=== PATIENT | male | born 1970 | race American Indian/Alaskan Native ===

== ENCOUNTER 2018-12-22 23:29 | Inpatient (IN) | payer MEDICAID, MEDICARE, OTHER ==
--- NOTE | 2018-12-22 23:46 | Emergency Department Report ---
ED Shortness of Breath HPI - General Stated Complaint: CHEST PAIN Time Seen by Provider: 12/22/18 23:29 Source: patient, EMS Mode of arrival: Stretcher Limitations: No Limitations - History of Present Illness Initial Comments: Patient is a 48-year-old male that presents emergency room with complaints of chest pain, shortness of breath, palpitations. Patient states started about 3 hours ago. Patient states he feels like his heart is beating out of his chest. Patient states his symptoms are better with rest and worse with exertion. Patient states he is having dyspnea on exertion as well. Patient denies abdominal pain. Patient denies dizziness. Patient denies chest pain radiation. Patient states the chest pain is 10 out of 10. Patient denies fever and chills. Patient brought in by EMS. Report received from EMS. EMS found the patient to be in SVT and patient was given adenosine 6, 12 minimal response. MD Complaint: shortness of breath, chest pain -: Sudden Severity: severe Pain Scale: 10 Quality: throbbing, stabbing Improves With: rest Worsens With: lying flat, exertion Known History Of: congestive heart failure, diabetes Associated Symptoms: chest pain, orhopnia, palpitations Treatments Prior to Arrival: oxygen, other (adenosine 6, 12) - Related Data Home Oxygen Therapy: No Previous Rx's Medication Instructions Recorded Last Taken Type HYDROcodone/APAP 5-325 [[place] 1 each PO Q6HR PRN #10 tablet 07/05/18 Unknown Rx 5/325] amLODIPine [Norvasc] 5 mg PO QDAY #30 tablet 07/05/18 Unknown Rx Allergies Allergy/AdvReac Type Severity Reaction Status Date / Time aspirin Allergy Hives Verified 07/03/18 22:11 ibuprofen [From Motrin] Allergy Hives Verified 07/03/18 22:11 prochlorperazine Allergy Hives Verified 07/03/18 22:12 [From Compazine] ED Review of Systems ROS: Stated complaint: CHEST PAIN Other details as noted in HPI Constitutional: diaphoresis. denies: chills, fever Eyes: denies: eye pain, eye discharge, vision change ENT: denies: ear pain, throat pain Respiratory: shortness of breath, SOB with exertion, SOB at rest. denies: cough, wheezing Cardiovascular: chest pain, palpitations Endocrine: no symptoms reported Gastrointestinal: denies: abdominal pain, nausea, diarrhea Genitourinary: denies: urgency, dysuria Musculoskeletal: denies: back pain, joint swelling, arthralgia Skin: denies: rash, lesions Neurological: denies: headache, weakness, paresthesias Psychiatric: denies: anxiety, depression Hematological/Lymphatic: denies: easy bleeding, easy bruising ED Past Medical Hx - Past Medical History Previous Medical History?: Yes Hx Hypertension: Yes Hx Congestive Heart Failure: No Hx Diabetes: Yes Hx Headaches / Migraines: Yes Hx COPD: Yes Additional medical history: Sleep Apnea, Morbid Obesity, Chronic Back Pain - Surgical History Past Surgical History?: Yes Additional Surgical History: Sleep Apnea - Family History Family history: no significant - Social History Smoking Status: Current Every Day Smoker Substance Use Type: None - Medications Home Medications: Home Medications Medication Instructions Recorded Confirmed Last Taken Type HYDROcodone/APAP 5-325 [[place] 1 each PO Q6HR PRN #10 tablet 07/05/18 Unknown Rx 5/325] amLODIPine [Norvasc] 5 mg PO QDAY #30 tablet 07/05/18 Unknown Rx ED Physical Exam - General Limitations: No Limitations General appearance: alert, in distress - Head Head exam: Present: atraumatic, normocephalic - Eye Eye exam: Present: normal appearance - ENT ENT exam: Present: mucous membranes moist - Neck Neck exam: Present: normal inspection - Respiratory Respiratory exam: Present: normal lung sounds bilaterally, respiratory distress - Cardiovascular Cardiovascular Exam: Present: regular rate, normal rhythm, tachycardia. Absent: systolic murmur, diastolic murmur, rubs, gallop - GI/Abdominal GI/Abdominal exam: Present: soft, normal bowel sounds. Absent: distended, tenderness, guarding - Rectal Rectal exam: Present: deferred - Extremities Exam Extremities exam: Present: normal inspection - Back Exam Back exam: Present: normal inspection - Neurological Exam Neurological exam: Present: alert, oriented X3 - Psychiatric Psychiatric exam: Present: normal affect, normal mood - Skin Skin exam: Present: warm, dry, intact, normal color. Absent: rash ED Course Vital Signs 12/22/18 12/22/18 12/22/18 23:24 23:30 23:38 Temperature 98.2 F Pulse Rate 205 H 196 H 112 H Respiratory 33 H 19 20 Rate Blood Pressure 122/65 O2 Sat by Pulse 100 99 100 Oximetry 12/22/18 12/22/1819 23:45 23:57 00:01 Temperature Pulse Rate 126 H 104 H 91 H Respiratory 13 21 14 Rate Blood Pressure 144/74 112/57 89/68 O2 Sat by Pulse 100 100 100 Oximetry 12/23/18 12/23/18 12/23/18 00:15 00:30 00:40 Temperature Pulse Rate 96 H 94 H Respiratory 15 23 18 Rate Blood Pressure 101/74 111/65 O2 Sat by Pulse 99 100 Oximetry 12/23/18 12/23/18 12/23/18 00:45 01:00 01:15 Temperature Pulse Rate 99 H 105 H 111 H Respiratory 18 22 16 Rate Blood Pressure 119/60 104/56 109/66 O2 Sat by Pulse 99 100 100 Oximetry - Reevaluation(s) Reevaluation #1: Initial evaluation done. Patient noted to be in SVT and it appears to be A. fib RVR. Patient will be given Cardizem 25 mg. immediately improved to 150. EKG will be done. Patient states he is feeling less chest pressure and shortness of breath is improving 12/22/18 23:29 EKG reviewed and heart rate at 159. Patient's heart rate still elevated. Patient states he still having mild chest pain shortness of breath. 12/22/18 23:35 She given 5 mg of Lopressor. Heart rate improved more. Patient given another 25 mg of Cardizem heart rate at 98-105. After heart rate decreased patient states his symptoms also improved. 12/22/18 23:45 Heart rate is continues to improve. Patient's blood pressure has improved. Patient states his symptoms are better. 12/23/18 00:38 Patient's heart rate increased again. Patient is complaining of chest discomfort and palpitations. Patient will be started on a Cardizem drip 12/23/18 02:11 Discussed all results with patient. Patient will be admitted to the hospitalist service. Patient agrees to plan of care. 12/23/18 02:15 Heart rate improved with IV Cardizem push. he will be placed on drip once arrived from pharmacy. 12/23/18 02:30 Patient placed on Cardizem drip. Patient given Dilaudid for his pain. Shala ent's heart rate improved. Patient states his symptoms improved. 12/23/18 02:56 - Consultations Consultation #1: Hospitalist consultation for admission. Hospitalist to admit patient. Hospitalist to assume care patient. 12/23/18 02:14 ED Medical Decision Making - Lab Data Result diagrams: 12/23/18 01:22 12/23/18 01:22 - EKG Data -: EKG Interpreted by Me EKG shows normal: axis, intervals, QRS complexes, ST-T waves Rate: tachycardia - EKG Data Interpretation: other (initial EKG shows SVT.) - Radiology Data Radiology results: report reviewed, image reviewed interpreted by me: No acute findings on chest x-ray - Medical Decision Making Patient is a 48-year-old male presents emergency room with chest pains or palpitations. Patient in the SVT. Patient given adenosine 6, 12 by EMS. No effect or relief with adenosine. Patient given 2 doses of Cardizem and one dose of Lopressor and patient's heart rate and symptoms improved. Patient was admitted to the hospitalist service. Patient given morphine and aspirin for chest pain. Patient's heart rate went back up and patient placed on a Cardizem drip. - Differential Diagnosis SVT. A. fib RVR. Chest pain. Shortness of breath. Critical Care Time: Yes Critical care attestation.: If time is entered above; I have spent that time in minutes in the direct care of this critically ill patient, excluding procedure time. Critical Care Time: 65 minutes ED Disposition Clinical Impression: SVT (supraventricular tachycardia), Atrial fibrillation with RVR, SOB (shor tness of breath), ORDONEZ (dyspnea on exertion) Chest pain Qualifiers: Chest pain type: unspecified Qualified Code(s): R07.9 - Chest pain, unspecified Disposition: OP ADMIT IP TO THIS HOSP Is pt being admited?: Yes Does the pt Need Aspirin: No Condition: Critical Referrals: TARUN SOUSA MD [Primary Care Provider] - 3-5 Days Time of Disposition: 02:13
[2018-12-22] MEDS ORDERED: CARDIZEM ONE (23:48)
[2018-12-22] MEDS ORDERED: MORPHINE ONE (23:48)
[2018-12-23] MEDS ORDERED: CARDIZEM IV ONE (00:09)
[2018-12-23] MEDS ORDERED: NORMODYNE IV ONE (00:10)
[2018-12-23] MEDS ORDERED: MORPHINE IV ONE (00:11)
--- NOTE | 2018-12-23 01:36 | XRay Report ---
PROCEDURE: XR CHEST 1V AP TECHNIQUE: Chest radiograph single view. HISTORY: sob COMPARISONS: None . FINDINGS: Heart: Heart is enlarged. Mediastinum/Vessels: Normal. Lungs/Pleural space: There is suboptimal inspiration. There are no infiltrates, effusions or pneumot horaces.. Bony thorax: No acute osseous abnormality. Life support devices: None. IMPRESSION: Heart is enlarged. There is suboptimal inspiration. There are no infiltrates, effusions or pneumothoraces... This document is electronically signed by Andrea Haley MD., Dec 23 2018 01:34:28 AM ET
[2018-12-23 02:10] LABS: Alanine Aminotransferase 58 units/L (7-56); Albumin 3.8 g/dL (3.9-5); BUN/Creatinine Ratio 11; Blood Urea Nitrogen 16 mg/dL (9-20); Calcium 9.8 mg/dL (8.4-10.2); Hemolysis Index 12
[2018-12-23] MEDS ORDERED: TYLENOL PO PRN ×2 (02:22→02:51)
[2018-12-23] MEDS ORDERED: SODIUM CHLORIDE FLUSH SYRINGE 10 ML IV PRN (02:22)
[2018-12-23] MEDS ORDERED: ZOFRAN IV PRN ×2 (02:22→02:51)
--- NOTE | 2018-12-23 02:26 | History and Physical Report ---
<NAIMA ABBOTT - Last Filed: 12/23/18 03:05> History of Present Illness Date of examination: 12/23/18 Date of admission: 12/23/2018 Chief complaint: Shortness of breath, chest pain History of present illness: Patient is a 48-year-old male with PMHx of CHF, HTN, obesity, former smoker who presents to the ER with complaints of chest pain, shortness of breath, palpitations just prior to coming to the ER. Patient states that 2 days ago he woke up in the middle of the night unable to catch his breath, he was sweating, any activity causes severe fatigue and shortness of breath. Patient states that the same symptoms happened today, he couldn't walk from his bedroom to the bathroom without significant shortness of breath, diaphoresis and palpitation, the symptoms was associated with chest pain and general discomfort, his sister saranya alled EMS and he was taken to the ER for evaluation. Patient denies any acute illness, denies LOC, denies nausea, denied dizziness, denies headache. In the ER patients was found to be in SVT with a heart rate greater than 200, he was treated with Cardizem with some improvement in the heart rate, and admitted to ICU for further cardiac monitoring. Past History Past Medical History: heart failure, hypertension, other (obesity) Social history: smoking (used to smoke 2 pack a day, now reduced to 2 cigarettes a day) Family history: CAD, hypertension Medications and Allergies Allergies Allergy/AdvReac Type Severity Reaction Status Date / Time aspirin Allergy Hives Verified 07/03/18 22:11 ibuprofen [From Motrin] Allergy Hives Verified 07/03/18 22:11 prochlorperazine Allergy Hives Verified 07/03/18 22:12 [From Compazine] Home Medications Medication Instructions Recorded Confirmed Last Taken Type HYDROcodone/APAP 5-325 [[place] 1 each PO Q6HR PRN #10 tablet 07/05/18 Unknown Rx 5/325] amLODIPine [Norvasc] 5 mg PO QDAY #30 tablet 07/05/18 Unknown Rx Active Meds: Active Medications Diltiazem HCl (Cardizem/D5w 100mg/100ml) 100 mg in 100 mls @ 5 mls/hr IV TITR MEGAN; Protocol Review of Systems Cardiovascular: chest pain, palpitations, shortness of breath Respiratory: shortness of breath, dyspnea on exertion Exam - Constitutional Vitals: Temp Pulse Resp BP Pulse Ox 98.2 F 111 H 16 109/66 100 12/22/18 23:38 12/23/18 01:15 12/23/18 01:15 12/23/18 01:15 12/23/18 01:15 General appearance: Present: no acute distress - EENT Eyes: Present: EOM intact - Neck Neck: Present: normal ROM - Respiratory Respiratory effort: labored Respiratory: bilateral: diminished - Cardiovascular Rhythm: regular Heart Sounds: Present: S1 & S2 - Extremities Extremities: no ischemia, No edema - Abdominal General gastrointestinal: Present: non-tender, non-distended Male genitourinary: Present: deferred - Rectal Rectal Exam: deferred - Integumentary Integumentary: Present: warm, dry - Musculoskeletal Musculoskeletal: generalized weakness - Psychiatric Psychiatric: cooperative - Neurologic Neurologic: moves all extremities Results - Labs CBC & Chem 7: 12/23/18 01:22 12/23/18 01:22 Labs: Laboratory Last Values Sodium 141 mmol/L (137-145) 12/23/18 01:22 Potassium 4.4 mmol/L (3.6-5.0) 12/23/18 01:22 Chloride 102.6 mmol/L (98-107) 12/23/18 01:22 Carbon Dioxide 24 mmol/L (22-30) 12/23/18 01:22 19 mmol/L 12/23/18 01:22 BUN 16 mg/dL (9-20) 12/23/18 01:22 1.4 mg/dL (0.8-1.5) 12/23/18 01:22 Estimated GFR > 60 ml/min 12/23/18 01:22 11 % 12/23/18 01:22 Glucose 109 mg/dL (75-100) H 12/23/18 01:22 Calcium 9.8 mg/dL (8.4-10.2) 12/23/18 01:22 0.20 mg/dL (0.1-1.2) 12/23/18 01:22 AST 37 units/L (5-40) 12/23/18 01:22 ALT 58 units/L (7-56) H 12/23/18 01:22 87 units/L (35-129) 12/23/18 01:22 < 0.010 ng/mL (0.00-0.029) 12/23/18 01:22 7.4 g/dL (6.3-8.2) 12/23/18 01:22 3.8 g/dL (3.9-5) L 12/23/18 01:22 1.1 % 12/23/18 01:22 Assessment and Plan Assessment and plan: 1. New onset A. fib with RVR 2. Chest pain (due to above) 3. History of CHF 4. Accelerated Hypotension 5. Obesity Plan Admit to ICU for cardiac monitoring Consult cardiology for evaluation Continue Cardizem drip Monitor vital signs Continue home meds Plan of care d/w pt, voiced understading Patient's condition and plan of care discussed with Dr. Leonard Advance Directives: Yes VTE prophylaxis?: Chemical Plan of care discussed with patient/family: Yes <YANET LEONARD - Last Filed: 12/23/18 04:06> Medications and Allergies Active Meds: Active Medications Acetaminophen (Tylenol) 650 mg PO Q4H PRN PRN Reason: Pain MILD(1-3)/Fever >100.5/NICOLE Acetaminophen/Hydrocodone Bitart ([place] 5/325) 1 each PO Q6HR PRN PRN Reason: Pain Amlodipine Besylate (Norvasc) 5 mg PO QDAY MEGAN Enoxaparin Sodium (Lovenox) 110 mg 1 mg/kg (110 mg) SUB-Q Q12H MEGAN Diltiazem HCl (Cardizem/D5w 100mg/100ml) 100 mg in 100 mls @ 5 mls/hr IV TITR MEGAN; Protocol Last Admin: 12/23/18 03:15 Dose: 5 mg/hr, 5 mls/hr Documented by: Methylprednisolone Sodium Succinate (Solu-Medrol) 60 mg IV Q8HR MEGAN Ondansetron HCl (Zofran) 4 mg IV Q8H PRN PRN Reason: Nausea And Vomiting Sodium Chloride (Sodium Chloride Flush Syringe 10 Ml) 10 ml IV BID MEGAN Sodium Chloride (Sodium Chloride Flush Syringe 10 Ml) 10 ml IV PRN PRN PRN Reason: LINE FLUSH Exam - Constitutional Vitals: Temp Pulse Resp BP Pulse Ox 98.2 F 111 H 16 109/66 100 12/22/18 23:38 12/23/18 01:15 12/23/18 01:15 12/23/18 01:15 12/23/18 01:15 Results - Labs CBC & Chem 7: 12/23/18 01:22 12/23/18 01:22 Labs: Laboratory Last Values WBC 7.0 K/mm3 (4.5-11.0) 12/23/18 01:22 RBC 5.62 M/mm3 (3.65-5.03) H 12/23/18 01:22 Hgb 15.7 gm/dl (11.8-15.2) H 12/23/18 01:22 Hct 47.4 % (35.5-45.6) H 12/23/18 01:22 MCV 84 fl (84-94) 12/23/18 01:22 MCH 28 pg (28-32) 12/23/18 01:22 MCHC 33 % (32-34) 12/23/18 01:22 RDW 15.6 % (13.2-15.2) H 12/23/18 01:22 Plt Count 215 K/mm3 (140-440) 12/23/18 01:22 Sodium 141 mmol/L (137-145) 12/23/18 01:22 Potassium 4.4 mmol/L (3.6-5.0) 12/23/18 01:22 Chloride 102.6 mmol/L (98-107) 12/23/18 01:22 Carbon Dioxide 24 mmol/L (22-30) 12/23/18 01:22 19 mmol/L 12/23/18 01:22 BUN 16 mg/dL (9-20) 12/23/18 01:22 1.4 mg/dL (0.8-1.5) 12/23/18 01:22 Estimated GFR > 60 ml/min 12/23/18 01:22 11 % 12/23/18 01:22 Glucose 109 mg/dL (75-100) H 12/23/18 01:22 Calcium 9.8 mg/dL (8.4-10.2) 12/23/18 01:22 0.20 mg/dL (0.1-1.2) 12/23/18 01:22 AST 37 units/L (5-40) 12/23/18 01:22 ALT 58 units/L (7-56) H 12/23/18 01:22 87 units/L (35-129) 12/23/18 01:22 < 0.010 ng/mL (0.00-0.029) 12/23/18 01:22 7.4 g/dL (6.3-8.2) 12/23/18 01:22 3.8 g/dL (3.9-5) L 12/23/18:22 1.1 % 12/23/18:22 Assessment and Plan Assessment and plan: 48-year-old man with a history of CHF, COPD, sleep apnea, CVA, seizure, diabetes,tobacco abuse, chronic pain,morbid obesity is brought to the emergency room with complaints of shortness of breath which she is been experiencing for 2 days, associated with dyspnea and exertion, diaphoresis and chest pain. His pain is in the left substernal area which she describes a pressure-like sensation, constant, radiating to the left shoulder and his upper extremity felt weak. He had a stress test a year ago which was negative. He denies having palpitation, he was found to be in A. fib with RVR, started on a Cardizem drip. Denies recent travel .His physical exam is significant for wheezing. Continue plan as discussed above, in addition check cardiac enzymes, d-dimer, TSH, echo and start full dose Lovenox, Solu-Medrol, nebulizer treatments. Consult critic al care . Hold norvasc. Fingersticks initiate insulin sliding scale
[2018-12-23] MEDS ORDERED: CARDIZEM ONE (02:29)
[2018-12-23] MEDS ORDERED: DILAUDID IV ONE (02:31)
[2018-12-23 02:44] LABS: Hematocrit 47.4 % (35.5-45.6); Hemoglobin 15.7 gm/dl (11.8-15.2); Mean Corpuscular HGB Conc 33 % (32-34); Mean Corpuscular Volume 84 fl (84-94); Platelet Count 215 K/mm3 (140-440); Red Blood Count 5.62 M/mm3 (3.65-5.03); Red Cell Distribution Width 15.6 % (13.2-15.2)
[2018-12-23] MEDS ORDERED: CARDIZEM/D5W 100MG/100ML 100 MG/100 ML BAG IV SCH (03:00)
[2018-12-23] MEDS ORDERED: NORCO 5/325 PO PRN (03:42)
[2018-12-23] MEDS ORDERED: LOVENOX SUB-Q SCH (04:00)
[2018-12-23] MEDS ORDERED: SOLU-Medrol IV SCH ×2 (04:00→06:00)
[2018-12-23] MEDS ORDERED: D50W (25GM) Syringe IV PRN (04:01)
[2018-12-23 05:13] LABS: Creatine Kinase MB 1.6 ng/mL (0.0-4.0)
[2018-12-23] MEDS ORDERED: NORCO 5/325 ONE (05:16)
[2018-12-23] MEDS: LOVENOX SUB-Q SCH ×4 (07:28→18:29)
[2018-12-23] MEDS: HumaLOG SUB-Q SCH ×4 (07:30→21:50)
[2018-12-23] MEDS ORDERED: DILAUDID IM PRN (08:40)
--- NOTE | 2018-12-23 08:49 | Consultation ---
History of Present Illness Consult date: 12/23/18 Consult reason: atrial fibrillation History of present illness: 48 year old male admitted with 2 day history of shortness of breath. ECG on admission showing afib with RVR. Patient denies prior history of cardiovascular disease. He is known to have DM, HTN, HLP, COPD and DOM. He is a smoker, trying to quit. Past History Past Medical History: heart failure, hypertension, other (obesity) Past Surgical History: Other (hemorrhoidectomy) Social history: smoking (used to smoke 2 pack a day, now reduced to 2 cigarettes a day) Family history: CAD, hypertension Medications and Allergies Allergies Allergy/AdvReac Type Severity Reaction Status Date / Time aspirin Allergy Hives Verified 07/03/18 22:11 ibuprofen [From Motrin] Allergy Hives Verified 07/03/18 22:11 prochlorperazine Allergy Hives Verified 07/03/18 22:12 [From Compazine] Home Medications Medication Instructions Recorded Confirmed Last Taken Type HYDROcodone/APAP 5-325 [[place] 1 each PO Q6HR PRN #10 tablet 07/05/18 Unknown Rx 5/325] amLODIPine [Norvasc] 5 mg PO QDAY #30 tablet 07/05/18 Unknown Rx Active Meds: Active Medications Acetaminophen (Tylenol) 650 mg PO Q4H PRN PRN Reason: Pain MILD(1-3)/Fever >100.5/NICOLE Dextrose (D50w (25gm) Syringe) 50 ml IV PRN PRN PRN Reason: Hypoglycemia Enoxaparin Sodium (Lovenox) 80 mg SUB-Q Q12H MEGAN Last Admin: 12/23/18 07:28 Dose: 80 mg Documented by: Enoxaparin Sodium (Lovenox) 30 mg SUB-Q Q12H MEGAN Last Admin: 12/23/18 07:28 Dose: 30 mg Documented by: Hydromorphone HCl (Dilaudid) 1 mg IM Q4H PRN PRN Reason: Pain , Severe (7-10) Amiodarone HCl 150 mg/ (Dextrose) 100 mls @ 600 mls/hr IV ONCE ONE Stop: 12/23/18 08:47 Amiodarone HCl 900 mg/ (Dextrose) 500 mls @ 33.333 mls/hr IV DIRECT MEGAN; Protocol Insulin Human Lispro (Humalog) 0 unit SUB-Q ACHS MEGAN; Protocol Methylprednisolone Sodium Succinate (Solu-Medrol) 60 mg IV Q8HR MEGAN Last Admin: 12/23/18 07:28 Dose: 60 mg Documented by: Metoprolol Tartrate (Lopressor) 50 mg PO Q8H MEGAN Ondansetron HCl (Zofran) 4 mg IV Q8H PRN PRN Reason: Nausea And Vomiting Sodium Chloride (Sodium Chloride Flush Syringe 10 Ml) 10 ml IV BID MEGAN Sodium Chloride (Sodium Chloride Flush Syringe 10 Ml) 10 ml IV PRN PRN PRN Reason: LINE FLUSH Review of Systems All systems: negative Physical Examination Vital Signs Pulse Resp Pulse Ox 205 H 33 H 100 12/22/18 23:24 12/22/18 23:24 12/22/18 23:24 General appearance: other (obese) Neck: Positive: neck supple Cardiac: Positive: irregularly irregular Lungs: Positive: Decreased Breath Sounds Abdomen: Positive: Soft Extremities: Absent: edema Results 12/23/18 01:22 12/23/18 01:22 Cardiac Enzymes 12/23/18 12/23/18 Range/Units 01:22 04:15 AST 37 (5-40) units/L CK-MB (CK-2) 1.6 (0.0-4.0) ng/mL CBC 12/23/18 Range/Units 01:22 WBC 7.0 (4.5-11.0) K/mm3 RBC 5.62 H (3.65-5.03) M/mm3 Hgb 15.7 H (11.8-15.2) gm/dl Hct 47.4 H (35.5-45.6) % Plt Count 215 (140-440) K/mm3 Comprehensive Metabolic Panel 12/23/18 Range/Units 01:22 Sodium 141 (137-145) mmol/L Potassium 4.4 (3.6-5.0) mmol/L Chloride 102.6 (98-107) mmol/L Carbon Dioxide 24 (22-30) mmol/L BUN 16 (9-20) mg/dL Creatinine 1.4 (0.8-1.5) mg/dL Glucose 109 H (75-100) mg/dL Calcium 9.8 (8.4-10.2) mg/dL AST 37 (5-40) units/L ALT 58 H (7-56) units/L Alkaline Phosphatase 87 (35-129) units/L Total Protein 7.4 (6.3-8.2) g/dL Albumin 3.8 L (3.9-5) g/dL - EKG Interpretation EKG shows: atrial fibrillation EKG interpretations - Telemetry EKG Rhythm: Atrial Fibrillation Assessment and Plan Shortness of breath Cardiomegaly on CXR Negative troponin MPI 06/2018 showing no ischemia Atrial fibrillation with RVR Morbid obesity Obstructive sleep apnea Type II DM Systemic Hypertension Hyperlipidemia COPD Nicotine dependence Recommendations: Continue SC lovenox bid Change IV diltiazem to IV amiodarone with po metoprolol for rate/rhythm control Echocardiogram to evaluate LVEF and cardiomegaly Encourage use of CPAP at bedtime
[2018-12-23] MEDS: LOPRESSOR PO SCH ×3 (09:23→21:20)
[2018-12-23] MEDS ORDERED: CORDARONE 150 MG in D5W 97 ML IV ONE (09:30)
[2018-12-23] MEDS ORDERED: NORVASC PO SCH (10:00)
[2018-12-23] MEDS ORDERED: OxyCONTIN PO ONE (10:00)
--- NOTE | 2018-12-23 11:06 | Consultation ---
History of Present Illness Consult date: 12/23/18 Requesting physician: YANET CONN Reason for consult: other (New onset Atrial Fibrillation with RVR; Acute hypoxemic Respiratory Failure) History of present illness: PCCM CONSULT NOTE (Full dictation # [id number]) Please see dictated notes for full details Past History Past Medical History: heart failure, hypertension, other (obesity) Social history: smoking (used to smoke 2 pack a day, now reduced to 2 cigarettes a day) Family history: CAD, hypertension Medications and Allergies Allergies Allergy/AdvReac Type Severity Reaction Status Date / Time aspirin Allergy Hives Verified 07/03/18 22:11 ibuprofen [From Motrin] Allergy Hives Verified 07/03/18 22:11 prochlorperazine Allergy Hives Verified 07/03/18 22:12 [From Compazine] Home Medications Medication Instructions Recorded Confirmed Last Taken Type HYDROcodone/APAP 5-325 [[place] 1 each PO Q6HR PRN #10 tablet 07/05/18 Unknown Rx 5/325] amLODIPine [Norvasc] 5 mg PO QDAY #30 tablet 07/05/18 Unknown Rx Active Meds: Active Medications Acetaminophen (Tylenol) 650 mg PO Q4H PRN PRN Reason: Pain MILD(1-3)/Fever >100.5/NICOLE Dextrose (D50w (25gm) Syringe) 50 ml IV PRN PRN PRN Reason: Hypoglycemia Enoxaparin Sodium (Lovenox) 80 mg SUB-Q Q12H MEGAN Last Admin: 12/23/18 07:28 Dose: 80 mg Documented by: Enoxaparin Sodium (Lovenox) 30 mg SUB-Q Q12H MEGAN Last Admin: 12/23/18 07:28 Dose: 30 mg Documented by: Hydromorphone HCl (Dilaudid) 1 mg IM Q4H PRN PRN Reason: Pain , Severe (7-10) Last Admin: 12/23/18 10:03 Dose: 1 mg Documented by: Amiodarone HCl 900 mg/ (Dextrose) 500 mls @ 33.333 mls/hr IV DIRECT MEGAN; Protocol Insulin Human Lispro (Humalog) 0 unit SUB-Q ACHS MEGAN; Protocol Methylprednisolone Sodium Succinate (Solu-Medrol) 60 mg IV Q8HR MEGAN Last Admin: 12/23/18 07:28 Dose: 60 mg Documented by: Metoprolol Tartrate (Lopressor) 50 mg PO Q8HR [facility] Last Admin: 12/23/18 09:23 Dose: 50 mg Documented by: Morphine Sulfate (Morphine) 2 mg IV Q4H PRN PRN Reason: Pain, Moderate (4-6) Ondansetron HCl (Zofran) 4 mg IV Q8H PRN PRN Reason: Nausea And Vomiting Sodium Chloride (Sodium Chloride Flush Syringe 10 Ml) 10 ml IV BID [facility] Sodium Chloride (Sodium Chloride Flush Syringe 10 Ml) 10 ml IV PRN PRN PRN Reason: LINE FLUSH Physical Examination Vital signs: Vital Signs Pulse Resp Pulse Ox 205 H 33 H 100 12/22/18 23:24 12/22/18 23:24 12/22/18 23:24 Results - Laboratory Findings CBC and BMP: 12/23/18 01:22 12/23/18 01:22 PT/INR, D-dimer 271.74 ng/mlDDU (0-234) H 12/23/18 04:15 Abnormal lab findings: Abnormal Labs 12/23/18 12/23/18 12/23/18 01:22 01:22 04:15 RBC 5.62 H Hgb 15.7 H Hct 47.4 H RDW 15.6 H D-Dimer 271.74 H Glucose 109 H ALT 58 H Total Creatine Kinase Albumin 3.8 L 12/23/18 04:15 RBC Hgb Hct RDW D-Dimer Glucose ALT Total Creatine Kinase 576 H Albumin
[2018-12-23] MEDS: CORDARONE 900 MG in D5W 482 ML IV SCH (11:20)
[2018-12-23 11:21] LABS: Creatine Kinase MB 1.6 ng/mL (0.0-4.0)
[2018-12-23] MEDS ORDERED: PROVENTIL IH PRN (12:27)
[2018-12-23] MEDS: DUONEB *Not for PRN Use IH SCH ×2 (16:43→21:57)
--- NOTE | 2018-12-23 16:49 | Vascular Lab Report ---
PROCEDURE: VL VENOUS DUPLEX LE BILAT TECHNIQUE: Duplex Doppler ultrasound examination of the venous system of the right leg and left leg HISTORY: leg pain and SOB COMPARISONS: None FINDINGS: RIGHT LEG: Normal compressibility, vascular patency, and augmentation are present diffusely throughout the visua lized portion of the deep veins. No abnormal intraluminal echoes are visualized to suggest deep vein thrombus. IMPRESSION: No ultrasound evidence of DVT in the right leg LEFT LEG: Normal compressibility, vascular patency, and augmentation are present diffusely throughout the visua lized portion of the deep veins. No abnormal intraluminal echoes are visualized to suggest deep vein thrombus. IMPRESSION: No ultrasound evidence of DVT in the left leg This document is electronically signed by Jean-Paul Schwab MD., Dec 23 2018 04:47:41 PM ET
--- NOTE | 2018-12-23 17:59 | Event Note ---
Date: 12/23/18 Pateint seen and examined, continue care as currently outlined. will check v/q scan to rule out PE, although management may not necessary change since patient is already on full dose ANTICOAGULATION
[2018-12-23] MEDS: MORPHINE IV PRN ×2 (18:48→21:34)
[2018-12-23] MEDS: SODIUM CHLORIDE FLUSH SYRINGE 10 ML IV SCH (21:28)
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
[2018-12-24] MEDS: MORPHINE IV PRN ×6 (02:40→23:43)
[2018-12-24] MEDS: LOPRESSOR PO SCH (06:28)
[2018-12-24] MEDS: LOVENOX SUB-Q SCH ×2 (06:29)
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
[2018-12-24] MEDS: SODIUM CHLORIDE FLUSH SYRINGE 10 ML IV SCH ×3 (08:32→21:27)
[2018-12-24] MEDS: HumaLOG SUB-Q SCH ×4 (08:34→21:27)
[2018-12-24] MEDS: DUONEB *Not for PRN Use IH SCH ×3 (08:48→19:41)
--- NOTE | 2018-12-24 08:56 | Progress Note ---
Assessment and Plan - Patient Problems (1) Atrial fibrillation with RVR Current Visit: Yes Status: Acute Plan to address problem: Atrial fibrillation rate is much better controlled. Will continue AV malcom blocking agents. He will ultimately need transition from subcutaneous Lovenox to oral Eliquis prior to discharge. Subjective Date of service: 12/24/18 Interval history: Patient complains of shortness of breath attributed to his severe sleep apnea. On air sampling and monitoring, he is in atrial fibrillation but now with a well- controlled ventricular rate. Objective Vital Signs Temp Pulse Pulse Pulse Resp Resp Resp 12/24/18 08:49 103 H 20 12/24/18 08:21 113 H 17 12/24/18 08:11 104 H 26 H 12/24/18 08:01 110 H 21 12/24/18 08:00 97.7 F 12/24/18 07:51 100 H 20 12/24/18 07:41 129 H 24 12/24/18 07:31 133 H 24 12/24/18 07:21 135 H 24 12/24/18 07:11 123 H 21 12/24/18 07:01 140 H 25 H 12/24/18 06:51 162 H 17 12/24/18 06:41 29 H 12/24/18 06:31 122 H 21 12/24/18 06:28 120 H 12/24/18 06:21 140 H 22 12/24/18 06:11 133 H 20 12/24/18 06:01 130 H 21 12/24/18 05:51 127 H 15 12/24/18 05:41 140 H 18 12/24/18 05:31 126 H 21 12/24/18 05:21 144 H 20 12/24/18 05:11 130 H 22 12/24/18 05:01 139 H 24 12/24/18 04:31 136 H 21 12/24/18 04:01 137 H 25 H 12/24/18 03:31 135 H 24 12/24/18 03:13 97.9 F 12/24/18 03:01 126 H 20 12/24/18 02:51 131 H 14 12/24/18 02:46 112 H 17 12/24/18 02:41 153 H 23 12/24/18 02:31 125 H 21 12/24/18 02:21 138 H 22 05/18/19 02:11 130 H 19 12/24/18 02:01 132 H 22 12/24/18 01:51 117 H 18 12/24/18 01:41 125 H 17 12/24/18 01:31 127 H 21 12/24/18 01:21 130 H 19 12/24/18 01:11 144 H 18 12/24/18 01:01 133 H 21 12/24/18 00:51 127 H 21 12/24/18 00:41 159 H 33 H 12/24/18 00:31 129 H 19 12/24/18 00:21 173 H 14 12/24/18 00:11 114 H 15 12/24/18 00:01 121 H 18 12/23/18 23:51 151 H 20 12/23/18 23:41 149 H 24 12/23/18 23:31 143 H 20 12/23/18 23:24 97.9 F 12/23/18 23:21 141 H 17 12/23/18 23:11 159 H 21 12/23/18 23:01 123 H 21 12/23/18 22:51 167 H 21 12/23/18 22:41 154 H 28 H 12/23/18 22:32 137 H 21 12/23/18 22:31 136 H 18 12/23/18 22:25 142 H 12/23/18 22:21 151 H 24 12/23/18 22:11 125 H 15 12/23/18 22:01 146 H 21 12/23/18 22:00 18 12/23/18 21:58 12/23/18 21:51 140 H 18 12/23/18 21:41 144 H 21 12/23/18 21:31 154 H 26 H 12/23/18 21:21 156 H 16 12/23/18 21:20 138 H 12/23/18 21:11 132 H 34 H 12/23/18 21:01 138 H 19 12/23/18 20:51 139 H 15 12/23/18 20:41 148 H 14 12/23/18 20:31 126 H 12/23/18 20:21 152 H 33 H 12/23/18 20:11 116 H 16 12/23/18 20:01 148 H 20 12/23/18 19:56 97.8 F 12/23/18 19:51 121 H 17 12/23/18 19:41 126 H 18 12/23/18 19:35 122 H 12/23/18 19:31 129 H 20 12/23/18 19:21 135 H 31 H 12/23/18 19:11 12/23/18 19:01 123 H 12/23/18 18:51 144 H 12/23/18 18:41 123 H 12/23/18 18:31 118 H 12/23/18 18:21 123 H 12/23/18 18:11 125 H 12/23/18 18:01 123 H 12/23/18 18:00 117 H 29 H 12/23/18 17:51 136 H 12/23/18 17:41 135 H 12/23/18 17:31 123 H 12/23/18 17:21 111 H 12/23/18 17:10 147 H 12/23/18 17:01 132 H 12/23/18 16:51 105 H 12/23/18 16:43 119 H 20 12/23/18 16:00 98.1 F 117 H 29 H 12/23/18 12:00 97.5 F L 117 H 29 H 12/23/18 10:00 121 H 25 H BP Pulse Ox 12/24/18 08:49 92 18 08:21 111/60 87 18 08:11 111/60 94 18 08:01 111/60 90 18 08:00 94 12/24/18 07:51 136/97 94 1819 07:41 136/97 97 18 07:31 91/59 95 18/19 07:21 91/59 95 0518/19 07:11 91/59 94 18/19 07:01 91/59 96 0518/19 06:51 91/59 93 0518/19 06:41 91/59 93 18/19 06:31 91/59 91 18/19 06:28 051819 06:21 91/59 97 18/19 06:11 91/59 96 18/19 06:01 91/59 99 18/19 05:51 /59 97 18/19 05:41 /59 96 1819 05:31 91/59 95 05/18/19 05:21 /59 99 05/18/19 05:11 /59 98 05/18/19 05:01 /59 98 05/18/19 04:31 /59 97 05/18/19 04:01 /59 96 05/18/19 03:31 104/69 91 05/18/19 03:13 05/18/19 03:01 122/86 93 05/18/19 02:51 104/69 93 05/18/19 02:46 96 05/18/19 02:41 104/69 91 05/18/19 02:31 104/69 93 05/18/19 02:21 104/69 91 05/18/19 02:11 104/69 93 05/18/19 02:01 104/69 95 05/18/19 01:51 130/73 94 05/18/19 01:41 130/73 95 05/18/19 01:31 130/73 94 05/18/19 01:21 130/73 92 05/18/19 01:11 130/73 93 05/18/19 01:01 130/73 92 05/18/19 00:51 117/78 91 05/18/19 00:41 117/78 96 05/18/19 00:31 117/78 96 05/18/19 00:21 117/78 94 05/18/19 00:11 117/78 94 05/18/19 00:01 117/78 96 05/17/19 23:51 117/78 95 05/17/19 23:41 117/78 94 05/17/19 23:31 117/78 95 05/17/19 23:24 05/17/19 23:21 117/78 96 05/17/19 23:11 117/78 94 05/17/19 23:01 117/78 94 05/17/19 22:51 124/90 95 05/17/19 22:41 124/90 96 05/17/19 22:32 96 05/17/19 22:31 124/90 92 05/17/19 22:25 05/17/19 22:21 124/90 95 05/17/19 22:11 124/90 95 05/17/19 22:01 124/90 93 05/17/19 22:00 05/17/19 21:58 93 19 21:51 131/78 95 1719 21:41 131/78 90 051719 21:31 131/78 91 1719 21:21 96/74 91 19 21:20 131/78 19 21:11 96/74 93 051719 21:01 96/74 94 1719 20:51 118/81 93 051719 20:41 118/81 94 051719 20:31 118/81 93 051719 20:21 118/81 94 051719 20:11 118/81 93 051719 20:01 118/81 94 051719 19:56 0517 19:51 132/76 98 051719 19:41 132/76 93 1719 19:35 90 1719 19:31 132/76 95 051719 19:21 132/76 94 1719 19:11 132/76 94 1719 19:01 132/76 94 1719 18:51 122/68 96 0517/19 18:41 122/68 95 051719 18:31 122/68 93 1719 18:21 122/68 96 17/19 18:11 122/68 95 1719 18:01 131/58 96 0517/19 18:00 95 1719 17:51 131/58 95 051719 17:41 131/58 92 1719 17:31 131/58 96 1719 17:21 131/58 96 1719 17:10 131/58 97 17/19 17:01 128/61 92 0517/19 16:51 128/61 93 17/19 16:43 051719 16:00 95 19 12:00 95 12/23/18 10:00 - Physical Examination General: No Apparent Distress Neck: Positive: neck supple Cardiac: Positive: irregularly irregular Lungs: Positive: Decreased Breath Sounds Neuro: Positive: Grossly Intact Abdomen: Positive: Soft Skin: Positive: Clear Extremities: Absent: edema - Labs and Meds Cardiac Enzymes 05/17/19 Range/Units 10:30 CK-MB (CK-2) 1.6 (0.0-4.0) ng/mL
--- NOTE | 2018-12-24 09:16 | Progress Note ---
Assessment and Plan Assessment and plan: 48-year-old man with a history of CHF, COPD, sleep apnea, CVA, seizure, diabetes,tobacco abuse, chronic pain,morbid obesity is brought to the emergency room with complaints of shortness of breath which she is been experiencing for 2 days, associated with dyspnea and exertion, diaphoresis and chest pain. His pain is in the left substernal area which she describes a pressure-like sensation, constant, radiating to the left shoulder and his upper extremity felt weak. He had a stress test a year ago which was negative. He denies having palpitation, he was found to be in A. fib with RVR, started on a Cardizem drip. Denies recent travel .His physical exam is significant for wheezing. Continue plan as discussed above, in addition check cardiac enzymes, d-dimer, TSH, echo and start full dose Lovenox, Solu-Medrol, nebulizer treatments. Consult critical care . Hold norvasc. Fingersticks initiate insulin sliding scale. Per Documentation patient was given 2 of adenosine by EMS prior to arrival due to rate of over 200. 1. New onset A. fib with RVR 2. Chest pain (due to above) 3. History of CHF 4. Accelerated Hypotension 5. Obesity With Obesity hypoventilation syndrome 6. DOM 7. Acute Hypxoemic Respiratory failure 8. HTN 9. COPD 10. Chronic Back pain 11. Persistent Tobacco use disorder Plan Clinically improving, although still with some shortness of breath, BIPAP on stand by per Pulmonary Outpatient PFT needed and discussed with the patient Lower ext doppler is negative, AWAITING V/Q SCAN RESULT CARDS INPUT NOTED,ADJUST ANTIARRYTHMIC AGENTS, WILL ALSO START ELIQIUS AT THIS TIME TRANSFER TO TELE Monitor vital signs Continue home meds Plan of care d/w pt, voiced understanding Tobacco cessation counselling discussed in detail Eliquis prior to discharge DVT/GI prophy History Interval history: Patient seen and examined, requesting more pain meds for his chronic back pain, rates pain 5/10 tells me he is on high dose morphine at home but has not been taking since he is awaiting following up with pain doctor. no worsening respirat ory issues at this time Hospitalist Physical - Physical exam Narrative exam: General appearance: Present: mild distress, morbidy obese - EENT Eyes: Present: EOM intact - Neck Neck: Present: normal ROM - Respiratory Respiratory effort: labored Respiratory: bilateral: diminished - Cardiovascular Rhythm: regular Heart Sounds: Present: S1 & S2 - Extremities Extremities: no ischemia, No edema - Abdominal General gastrointestinal: Present: non-tender, non-distended Male genitourinary: Present: deferred - Rectal Rectal Exam: deferred - Integumentary Integumentary: Present: warm, dry - Musculoskeletal Musculoskeletal: generalized weakness - Psychiatric Psychiatric: cooperative - Neurologic Neurologic: moves all extremities - Constitutional Vitals: Temp Pulse Resp BP Pulse Ox 97.7 F 106 H 20 111/60 92 12/24/18 08:00 12/24/18 09:04 12/24/18 09:04 12/24/18 08:21 12/24/18 08:49 General appearance: Present: other (obese) Results - Labs CBC & Chem 7: 12/23/18 01:22 12/23/18 01:22 Labs: Laboratory Last Values WBC 7.0 K/mm3 (4.5-11.0) 12/23/18 01:22 RBC 5.62 M/mm3 (3.65-5.03) H 12/23/18 01:22 Hgb 15.7 gm/dl (11.8-15.2) H 12/23/18 01:22 Hct 47.4 % (35.5-45.6) H 12/23/18 01:22 MCV 84 fl (84-94) 12/23/18 01:22 MCH 28 pg (28-32) 12/23/18 01:22 MCHC 33 % (32-34) 12/23/18 01:22 RDW 15.6 % (13.2-15.2) H 12/23/18 01:22 Plt Count 215 K/mm3 (140-440) 12/23/18 01:22 271.74 ng/mlDDU (0-234) H 12/23/18 04:15 Sodium 141 mmol/L (137-145) 12/23/18 01:22 Potassium 4.4 mmol/L (3.6-5.0) 12/23/18 01:22 Chloride 102.6 mmol/L (98-107) 12/23/18 01:22 Carbon Dioxide 24 mmol/L (22-30) 12/23/18 01:22 19 mmol/L 12/23/18 01:22 BUN 16 mg/dL (9-20) 12/23/18 01:22 1.4 mg/dL (0.8-1.5) 12/23/18 01:22 Estimated GFR > 60 ml/min 12/23/18 01:22 11 % 12/23/18 01:22 Glucose 109 mg/dL (75-100) H 12/23/18 01:22 POC Glucose 127 (70-105) H 12/24/18 08:22 Calcium 9.8 mg/dL (8.4-10.2) 12/23/18 01:22 0.20 mg/dL (0.1-1.2) 12/23/18 01:22 AST 37 units/L (5-40) 12/23/18 01:22 ALT 58 units/L (7-56) H 12/23/18 01:22 87 units/L (35-129) 12/23/18 01:22 599 units/L (55-170) H 12/23/18 10:30 CK-MB (CK-2) 1.6 ng/mL (0.0-4.0) 12/23/18 10:30 CK-MB (CK-2) Rel Index 0.2 (0-4) 12/23/18 10:30 < 0.010 ng/mL (0.00-0.029) 12/23/18 10:30 7.4 g/dL (6.3-8.2) 12/23/18 01:22 3.8 g/dL (3.9-5) L 12/23/18 01:22 1.1 % 12/23/18 01:22 TSH 1.650 mlU/mL (0.270-4.200) 12/23/18 04:15 Active Medications - Current Medications Current Medications: Generic Name Dose Route Start Last Admin Trade Name Freq PRN Reason Stop Dose Admin Acetaminophen 650 mg 12/23/18 02:22 Tylenol PO Q4H PRN Pain MILD(1-3)/Fever >100.5/NICOLE Albuterol 2.5 mg 12/23/18 12:27 Proventil IH Q6HRT PRN Shortness Of Breath Albuterol/Ipratropium 1 ampul 12/23/18 14:00 12/24/18 08:48 Duoneb *Not For Prn Use* IH 12/25/18 08:01 1 ampul TIDRT MEGAN Administration Dextrose 50 ml 12/23/18 04:01 D50w (25gm) Syringe IV PRN PRN Hypoglycemia Enoxaparin Sodium 80 mg 12/23/18 06:00 12/24/18 06:29 Lovenox SUB-Q 80 mg Q12H MEGAN Administration Enoxaparin Sodium 30 mg 12/23/18 06:00 12/24/18 06:29 Lovenox SUB-Q 30 mg Q12H MEGAN Administration Amiodarone HCl 900 mg/ 500 mls @ 33.333 mls/hr 12/23/18 09:30 12/23/18 17:30 Dextrose IV 0.5 mg/min DIRECT MEGAN 16.667 mls/hr Infusion Protocol 1 MG/MIN Insulin Human Lispro 0 unit 12/23/18 07:30 12/24/18 08:34 Humalog SUB-Q Not Given ACHS [facility] Protocol Metoprolol Tartrate 50 mg 12/23/18 09:00 12/24/18 06:28 Lopressor PO 50 mg Q8HR MEGAN Administration Morphine Sulfate 2 mg 12/23/18 09:12 12/24/18 06:35 Morphine IV 2 mg Q4H PRN Administration Pain, Moderate (4-6) Ondansetron HCl 4 mg 12/23/18 02:22 12/23/18 11:20 Zofran IV 4 mg Q8H PRN Administration Nausea And Vomiting Sodium Chloride 10 ml 12/23/18 10:00 12/24/18 08:32 Sodium Chloride Flush Syringe 10 Ml IV Not Given BID EMGAN Sodium Chloride 10 ml 12/23/18 02:22 Sodium Chloride Flush Syringe 10 Ml IV PRN PRN LINE FLUSH
[2018-12-24] MEDS: CORDARONE 900 MG in D5W 482 ML IV SCH (09:40)
[2018-12-24] MEDS: ELIQUIS PO SCH ×2 (10:35→21:26)
[2018-12-24] MEDS: CORDARONE PO SCH ×2 (10:35→21:26)
[2018-12-24] MEDS ORDERED: ATIVAN IV ONE (11:09)
[2018-12-24] MEDS ORDERED: CARDIZEM PO SCH ×2 (12:00→18:00)
[2018-12-24] MEDS: LANOXIN IV SCH ×2 (13:54→20:17)
--- NOTE | 2018-12-24 14:02 | Nuclear Medicine Report ---
PROCEDURE: NUCLEAR MEDICINE LUNG VENTILATION and PERFUSION SCAN TECHNIQUE: Lung ventilation with 13 mCi of xenon-133 gas Lung perfusion with 5 mCi of IV technetium 99m MAA Standard multiple planar ventilation and perfusion lung images HISTORY: Shortness of breath, R/o PE COMPARISONS: Portable chest 12/23/2018 FINDINGS: Ventilation and perfusion uptake is diffusely homogeneous bilaterally without focal matched or mismat ched defect. Specifically, there is no mismatched perfusion defect to suggest pulmonary embolism. There is no central air trapping to suggest emphysema. IMPRESSION: Lung ventilation and perfusion scan negative for pulmonary embolism This document is electronically signed by Jean-Paul Schwab MD., Dec 24 2018 01:59:41 PM ET
[2018-12-24] MEDS: OxyCONTIN PO SCH ×2 (16:43→18:32)
[2018-12-24] MEDS: CARDIZEM IV ONE ×2 (17:00→19:25)
[2018-12-24] MEDS ORDERED: LOPRESSOR IV ONE ×2 (17:00→22:48)
[2018-12-24] MEDS ORDERED: MORPHINE IV ONE (21:43)
[2018-12-24] MEDS: CARDIZEM PO SCH (22:34)
[2018-12-24] MEDS: ROBAXIN PO PRN (23:05)
[2018-12-24] MEDS: PERCOCET 5/325 PO PRN (23:05)
[2018-12-25] MEDS ORDERED: CORDARONE 900 MG in D5W 482 ML IV SCH (02:00)
[2018-12-25] MEDS ORDERED: LASIX IV ONE (02:00)
[2018-12-25] MEDS: CARDIZEM PO SCH ×4 (02:44→21:23)
[2018-12-25] MEDS: MORPHINE IV PRN ×4 (04:31→22:20)
[2018-12-25] MEDS: PERCOCET 5/325 PO PRN ×2 (06:32→13:56)
[2018-12-25] MEDS: ROBAXIN PO PRN ×2 (06:32→16:54)
[2018-12-25] MEDS: HumaLOG SUB-Q SCH ×4 (07:54→21:21)
--- NOTE | 2018-12-25 09:22 | Progress Note ---
Assessment and Plan Assessment and plan: 48-year-old man with a history of CHF, COPD, sleep apnea, CVA, seizure, diabetes,tobacco abuse, chronic pain,morbid obesity is brought to the emergency room with complaints of shortness of breath which she is been experiencing for 2 days, associated with dyspnea and exertion, diaphoresis and chest pain. His pain is in the left substernal area which she describes a pressure-like sensation, constant, radiating to the left shoulder and his upper extremity felt weak. He had a stress test a year ago which was negative. He denies having palpitation, he was found to be in A. fib with RVR, started on a Cardizem drip. Denies recent travel .His physical exam is significant for wheezing. Continue plan as discussed above, in addition check cardiac enzymes, d-dimer, TSH, echo and start full dose Lovenox, Solu-Medrol, nebulizer treatments. Consult critical care . Hold norvasc. Fingersticks initiate insulin sliding scale. Per Documentation patient was given 2 of adenosine by EMS prior to arrival due to rate of over 200. 1. New onset A. fib with RVR 2. Chest pain (due to above) 3. History of CHF 4. Accelerated Hypotension 5. Obesity With Obesity hypoventilation syndrome 6. DOM 7. Acute Hypxoemic Respiratory failure 8. HTN 9. COPD 10. Chronic Back pain/CHRONIC OPIOID DEPENDANCE 11. Persistent Tobacco use disorder 12. Morbidly obese Plan Clinically improving, although still chronic back pain overnight went back in AFIB with RVR, requiring reiniation of amiodarone drip. Will increase PO amiodarone to 400mg bid if ok with cardiology CPAP per pulmonary Continue extensive discussion about pain meds and also about weight. Started on q12 hr oxycodone. 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 10/13/2018 1 10/11/2018 OXYCODONE-ACETAMINOPHEN 5-325 16.0 1 ME HEN [id number] PUBLI ([id number]) 0 120.0 MME Comm [place] 09/27/2018 2 09/27/2018 OXYCONTIN ER 20 MG TABLET 28.0 14 SC LUB [id number] KARMEN ([id number]) 0 60.0 [place] 09/27/2018 2 09/27/2018 OXYCODONE HCL 15 MG TABLET 56.0 14 SC LUB [id number] KARMEN ([id number]) 0 90.0 [place] 07/10/2018 3 07/05/2018 HYDROCODONE-ACETAMIN 5-325 MG 10.[address] [facility] [id number] BALTA-Neeraj ([id number]) 0 16.67 MME Private Pay [place] History Interval history: Patient seen and examined, reported a rough night due to pain but improving. He is sitting up at bedside, HR still elevated this am, Med changes discussed with nursing staff. Hospitalist Physical - Physical exam Narrative exam: General appearance: Present: mild distress, morbidy obese - EENT Eyes: Present: EOM intact - Neck Neck: Present: normal ROM - Respiratory Respiratory effort: labored Respiratory: bilateral: diminished - Cardiovascular Rhythm:irregularly irregular, tachy Heart Sounds: Present: S1 & S2 - Extremities Extremities: no ischemia, No edema - Abdominal General gastrointestinal: Present: non-tender, non-distended Male genitourinary: Present: deferred - Rectal Rectal Exam: deferred - Integumentary Integumentary: Present: warm, dry - Musculoskeletal Musculoskeletal: generalized weakness - Psychiatric Psychiatric: cooperative - Neurologic Neurologic: moves all extremities - Constitutional Vitals: Temp Pulse Resp BP Pulse Ox 98.8 F 74 20 136/62 94 12/25/18 05:41 12/25/18 05:41 12/25/18 05:41 12/25/18 05:41 12/25/18 05:41 General appearance: Present: other (obese) Results - Labs CBC & Chem 7: 12/23/18 01:22 12/23/18 01:22 Labs: Laboratory Last Values WBC 7.0 K/mm3 (4.5-11.0) 12/23/18 01:22 RBC 5.62 M/mm3 (3.65-5.03) H 12/23/18 01:22 Hgb 15.7 gm/dl (11.8-15.2) H 12/23/18 01:22 Hct 47.4 % (35.5-45.6) H 12/23/18 01:22 MCV 84 fl (84-94) 12/23/18 01:22 MCH 28 pg (28-32) 12/23/18 01:22 MCHC 33 % (32-34) 12/23/18 01:22 RDW 15.6 % (13.2-15.2) H 12/23/18 01:22 Plt Count 215 K/mm3 (140-440) 12/23/18 01:22 271.74 ng/mlDDU (0-234) H 12/23/18 04:15 Sodium 141 mmol/L (137-145) 12/23/18 01:22 Potassium 4.4 mmol/L (3.6-5.0) 12/23/18 01:22 Chloride 102.6 mmol/L (98-107) 12/23/18 01:22 Carbon Dioxide 24 mmol/L (22-30) 12/23/18 01:22 19 mmol/L 12/23/18 01:22 BUN 16 mg/dL (9-20) 12/23/18 01:22 1.4 mg/dL (0.8-1.5) 12/23/18 01:22 Estimated GFR > 60 ml/min 12/23/18 01:22 11 % 12/23/18 01:22 Glucose 109 mg/dL (75-100) H 12/23/18 01:22 POC Glucose 110 (70-105) H 12/25/18 07:32 Calcium 9.8 mg/dL (8.4-10.2) 12/23/18 01:22 0.20 mg/dL (0.1-1.2) 12/23/18 01:22 AST 37 units/L (5-40) 12/23/18 01:22 ALT 58 units/L (7-56) H 12/23/18 01:22 87 units/L (35-129) 12/23/18 01:22 599 units/L (55-170) H 12/23/18 10:30 CK-MB (CK-2) 1.6 ng/mL (0.0-4.0) 12/23/18 10:30 CK-MB (CK-2) Rel Index 0.2 (0-4) 12/23/18 10:30 < 0.010 ng/mL (0.00-0.029) 12/23/18 10:30 7.4 g/dL (6.3-8.2) 12/23/18 01:22 3.8 g/dL (3.9-5) L 12/23/18 01:22 1.1 % 12/23/18 01:22 TSH 1.650 mlU/mL (0.270-4.200) 12/23/18 04:15 Active Medications - Current Medications Current Medications: Generic Name Dose Route Start Last Admin Trade Name Freq PRN Reason Stop Dose Admin Acetaminophen 650 mg 12/23/18 02:22 Tylenol PO Q4H PRN Pain MILD(1-3)/Fever >100.5/NICOLE Albuterol 2.5 mg 12/23/18 12:27 Proventil IH Q6HRT PRN Shortness Of Breath Amiodarone HCl 400 mg 12/25/18 10:00 Cordarone PO BID MEGAN Apixaban 5 mg 12/24/18 10:00 12/24/18 21:26 Eliquis PO 5 mg Q12HR MEGAN Administration Protocol Dextrose 50 ml 12/23/18 04:01 D50w (25gm) Syringe IV PRN PRN Hypoglycemia Digoxin 0.25 mg 12/25/18 10:00 Lanoxin PO DAILY@1700 MEGAN Diltiazem HCl 90 mg 12/25/18 14:00 Cardizem PO Q8HR MEGAN Amiodarone HCl 900 mg/ 500 mls @ 33.333 mls/hr 12/25/18 02:00 12/25/18 02:44 Dextrose IV 1 mg/min DIRECT MEGAN 33.333 mls/hr Administration Protocol 1 MG/MIN Insulin Human Lispro 0 unit 12/23/18 07:30 12/25/18 07:54 Humalog SUB-Q Not Given ACHS [facility] Protocol Ipratropium [place] 0.5 mg 12/25/18 08:00 Atrovent IH TIDRT MEGAN Methocarbamol 500 mg 12/24/18 20:34 12/25/18 06:32 Robaxin PO 500 mg Q8H PRN Administration Muscle Spasm Morphine Sulfate 2 mg 12/23/18 09:12 12/25/18 04:31 Morphine IV 2 mg Q4H PRN Administration Pain, Moderate (4-6) Ondansetron HCl 4 mg 12/23/18 02:22 12/23/18 11:20 Zofran IV 4 mg Q8H PRN Administration Nausea And Vomiting Oxycodone HCl 10 mg 12/24/18 18:00 12/24/18 18:32 Oxycontin PO Not Given Q12HR [facility] Oxycodone/Acetaminophen 1 tab 12/24/18 20:33 12/25/18 06:32 Percocet 5/325 PO 1 tab Q4H PRN Administration Pain, Moderate (4-6) Sodium Chloride 10 ml 12/23/18 10:00 12/24/18 21:27 Sodium Chloride Flush Syringe 10 Ml IV 10 ml BID MEGAN Administration Sodium Chloride 10 ml 12/23/18 02:22 Sodium Chloride Flush Syringe 10 Ml IV PRN PRN LINE FLUSH
[2018-12-25] MEDS: OxyCONTIN PO SCH ×2 (09:31→21:23)
[2018-12-25] MEDS: CORDARONE PO SCH ×2 (09:31→21:24)
[2018-12-25] MEDS: ELIQUIS PO SCH (09:31)
[2018-12-25] MEDS: LANOXIN PO SCH ×2 (09:32→16:53)
[2018-12-25] MEDS: SODIUM CHLORIDE FLUSH SYRINGE 10 ML IV SCH ×2 (10:27→21:25)
[2018-12-25] MEDS: ATROVENT IH SCH ×3 (11:23→22:04)
--- NOTE | 2018-12-25 14:46 | Progress Note ---
Assessment and Plan - Patient Problems (1) Atrial fibrillation with RVR Current Visit: Yes Status: Acute Plan to address problem: Continue atrial fibrillation rate control as previously outlined. (2) Aortic stenosis Current Visit: Yes Status: Acute Plan to address problem: Further evaluation of aortic stenosis will be recommended, right and left heart catheterization for aortic stenosis assessment and coronary angiography. We will hold oral anticoagulation and plan cardiac catheterization for Wednesday. Subjective Date of service: 12/25/18 Interval history: Patient is comfortable, no new cardiac complaints. Echocardiogram today shows normal left ventricular ejection fraction of 60-65%, but at least mild aortic stenosis with trans-aortic mean gradient of 21. Objective Vital Signs Temp Pulse Pulse Pulse Pulse Pulse Pulse 12/25/18 13:58 108 H 12/25/18 12:00 98.1 F 108 H 12/25/18 11:38 64 12/25/18 11:24 69 12/25/18 10:00 135 H 135 H 135 H 12/25/18 09:32 110 H 12/25/18 09:29 68 12/25/18 07:58 98.6 F 64 12/25/18 05:41 98.8 F 74 12/25/18 04:00 12/25/18 03:18 99.0 F 12/25/18 03:00 125 H 12/25/18 01:39 154 H 12/25/18 01:29 57 L 12/25/18 00:57 152 H 12/25/18 00:43 150 H 12/25/18 00:00 12/24/18 23:00 98.6 F 12/24/18 22:49 124 H 12/24/18 22:34 149 H 12/24/18 22:33 149 H 12/24/18 22:00 132 H 12/24/18 21:58 147 H 12/24/18 21:35 69 12/24/18 20:17 134 H 12/24/18 19:59 62 12/24/18 19:51 99.0 F 91 H 12/24/18 19:45 12/24/18 19:44 71 12/24/18 19:25 130 H 12/24/18 19:00 99.0 F 104 H 12/24/18 17:52 12/24/18 17:20 97.9 F 75 12/24/18 17:17 90 12/24/18 15:10 77 12/24/18 15:00 75 Resp Resp Resp BP BP Pulse Ox 12/25/18 13:58 135/63 12/25/18 12:00 18 135/63 98 12/25/18 11:38 18 100 12/25/18 11:24 20 12/25/18 10:00 22 98 12/25/18 09:32 138/81 12/25/18 09:29 138/81 92 12/25/18 07:58 20 118/68 90 12/25/18 05:41 20 136/62 94 12/25/18 04:00 94 12/25/18 03:18 22 135/62 12/25/18 03:00 22 12/25/18 01:39 12/25/18 01:29 133/75 97 12/25/18 00:57 143/87 12/25/18 00:43 23 94 12/25/18 00:00 18 12/24/18 23:00 16 118/74 12/24/18 22:49 12/24/18 22:34 139/95 12/24/18 22:33 139/95 12/24/18 22:00 12/24/18 21:58 12/24/18 21:35 22 128/76 95 12/24/18 20:17 12/24/18 19:59 20 12/24/18 19:51 16 141/108 96 12/24/18 19:45 91 12/24/18 19:44 20 12/24/18 19:25 12/24/18 19:00 16 141/108 96 12/24/18 17:52 14 95 12/24/18 17:20 20 132/79 92 12/24/18 17:17 20 132/79 92 12/24/18 15:10 18 12/24/18 15:00 20 - Physical Examination General: No Apparent Distress, Other (morbidly obese) Neck: Positive: neck supple Cardiac: Positive: Irregularly Regular Lungs: Positive: Decreased Breath Sounds Neuro: Positive: Grossly Intact Abdomen: Positive: Soft Skin: Positive: Clear Extremities: Absent: edema
[2018-12-25] MEDS: LOVENOX SUB-Q SCH (21:24)
--- NOTE | 2018-12-25 21:35 | Progress Note ---
Assessment and Plan Patient awake. Pint morbidly obese. Resting on BIPAP.O2 saturation 100%.No acute respiratory distress. - Patient Problems (1) Chest pain Current Visit: Yes Status: Acute Qualifiers: Chest pain type: unspecified Qualified Code(s): R07.9 - Chest pain, unspecified Plan to address problem: Magement as per cardiology. (2) Atrial fibrillation with RVR Current Visit: Yes Status: Acute Plan to address problem: patient is S/C [place]. Magement as pe cardiology (3) Aortic stenosis Current Visit: Yes Status: Acute Plan to address problem: Management as er cardiology. (4) ORDONEZ (dyspnea on exertion) Current Visit: Yes Status: Acute Plan to address problem: Rcomend to loose weight. Albterol inhaler 2 puffs po qid prn for shortness of breath. (5) GERD (gastroesophageal reflux disease) Current Visit: No Status: Acute Plan to address problem: Reommend exium or protonx (6) Hypertension Current Visit: No Status: Acute Qualifiers: Hypertension type: essential hypertension Qualified Code(s): I10 - Essential (primary) hypertension Plan to address problem: Management as per primary care. Subjective Date of service: 12/25/18 Interval history: Patient awake. Pint morbidly obese. Resting on BIPAP.O2 saturation 100%.No acute respiratory distress. Objective Vital Signs - 12hr 12/25/18 12/25/18 12/25/18 09:32 10:00 11:24 Temperature Pulse Rate 110 H 140 H Pulse Rate [ 135 H Apical] Pulse Rate [ 135 H Left Radial] Pulse Rate [ 69 Posterior Bilateral Throughout] Pulse Rate [ 135 H Right Radial] Respiratory 22 Rate Respiratory 20 Rate [Posterior Bilateral Throughout] Blood Pressure 138/81 Blood Pressure [Right] O2 Sat by Pulse 98 Oximetry 12/25/18 12/25/18 12/25/18 11:38 12:00 12:18 Temperature 98.1 F Pulse Rate 108 H 107 H Pulse Rate [ Apical] Pulse Rate [ Left Radial] Pulse Rate [ 64 Posterior Bilateral Throughout] Pulse Rate [ Right Radial] Respiratory 18 Rate Respiratory 18 Rate [Posterior Bilateral Throughout] Blood Pressure 135/63 Blood Pressure 135/63 [Right] O2 Sat by Pulse 100 98 99 Oximetry 12/25/18 12/25/18 12/25/18 13:58 16:15 16:53 Temperature 98.4 F Pulse Rate 108 H 76 110 H Pulse Rate [ Apical] Pulse Rate [ Left Radial] Pulse Rate [ Posterior Bilateral Throughout] Pulse Rate [ Right Radial] Respiratory 22 Rate Respiratory Rate [Posterior Bilateral Throughout] Blood Pressure 135/63 130/74 135/63 Blood Pressure [Right] O2 Sat by Pulse 98 Oximetry 12/25/18 12/25/18 12/25/18 19:01 20:53 21:23 Temperature 98.2 F Pulse Rate 57 L 92 H 113 H Pulse Rate [ Apical] Pulse Rate [ Left Radial] Pulse Rate [ Posterior Bilateral Throughout] Pulse Rate [ Right Radial] Respiratory 20 Rate Respiratory Rate [Posterior Bilateral Throughout] Blood Pressure 136/80 Blood Pressure [Right] O2 Sat by Pulse 96 Oximetry Constitutional: no acute distress, alert, other (Morbidlybese.) Eyes: non-icteric ENT: oropharynx moist Neck: supple, no lymphadenopathy Ascultation: Bilateral: diminished breath sounds Cardiovascular: regular rate and rhythm Gastrointestinal: normoactive bowel sounds Integumentary: normal Extremities: no cyanosis Neurologic: normal mental status, non-focal exam, pupils equal and round, CN II- XII normal Psychiatric: mood appropriate CBC and BMP: 12/23/18 01:22 12/23/18 01:22 ABG, PT/INR, D-dimer: PT/INR, D-dimer 271.74 ng/mlDDU (0-234) H 12/23/18 04:15 Abnormal lab findings: Abnormal Labs 12/23/18 12/23/18 12/23/18 01:22 01:22 04:15 RBC 5.62 H Hgb 15.7 H Hct 47.4 H RDW 15.6 H D-Dimer 271.74 H Glucose 109 H POC Glucose ALT 58 H Total Creatine Kinase Albumin 3.8 L 12/23/18 12/23/18 12/23/18 04:15 10:30 12:13 RBC Hgb Hct RDW D-Dimer Glucose POC Glucose 123 H ALT Total Creatine Kinase 576 H 599 H Albumin 12/23/18 12/23/18 12/24/18 17:32 21:24 08:22 RBC Hgb Hct RDW D-Dimer Glucose POC Glucose 119 H 127 H 127 H ALT Total Creatine Kinase Albumin 05/18/19 05/18/19 05/18/19 12:52 17:04 20:28 RBC Hgb Hct RDW D-Dimer Glucose POC Glucose 107 H 127 H 131 H ALT Total Creatine Kinase Albumin 12/25/18 12/25/18 07:32 12:09 RBC Hgb Hct RDW D-Dimer Glucose POC Glucose 110 H 110 H ALT Total Creatine Kinase Albumin Chest x-ray: report reviewed (Cardiomegaly. No pulmonary infiltrate, effusion or pneumothorax.), image reviewed
[2018-12-26] MEDS: MORPHINE IV PRN ×2 (02:29→08:56)
[2018-12-26] MEDS: CARDIZEM PO SCH ×3 (05:29→22:22)
[2018-12-26] MEDS: HumaLOG SUB-Q SCH ×4 (07:30→22:25)
--- NOTE | 2018-12-26 08:44 | Progress Note ---
Assessment and Plan Shortness of breath Cardiomegaly on CXR Negative troponin MPI 06/2018 showing no ischemia Atrial fibrillation rate control with amiodarone, digoxin and cardizem Eliquis held for plan right and left cardiac cath Morbid obesity Obstructive sleep apnea Type II DM Systemic Hypertension Hyperlipidemia COPD Nicotine dependence Echocardiogram today shows normal left ventricular ejection fraction of 60-65%, but at least mild aortic stenosis with trans-aortic mean gradient of 21. Plan: Continue rate controlling agents for atrial fibrillation that persists. Oral anticoagulation held for plan cardiac catheterization on Wednesday for further evaluation of aortic stenosis assessment and coronary angiography. Subjective Date of service: 12/26/18 Interval history: Patient complains of generalized pain. Afib with a well controlled ventricular rate on telemetry. Objective Vital Signs Temp Pulse Pulse Pulse Pulse Pulse Resp 12/26/18 04:21 98.1 F 70 19 12/26/18 02:29 20 12/26/18 00:00 100 H 16 12/25/18 23:19 98.6 F 76 17 12/25/18 22:20 20 12/25/18 22:11 65 12/25/18 22:09 12/25/18 22:01 64 12/25/18 22:00 113 H 12/25/18 21:23 113 H 12/25/18 20:53 92 H 12/25/18 19:01 98.2 F 57 L 20 12/25/18 16:53 110 H 12/25/18 16:15 98.4 F 76 22 12/25/18 13:58 108 H 12/25/18 12:18 107 H 12/25/18 12:00 98.1 F 108 H 18 12/25/18 11:38 64 12/25/18 11:24 69 12/25/18 10:00 140 H 135 H 135 H 135 H 22 12/25/18 09:32 110 H 12/25/18 09:29 68 Resp BP BP Pulse Ox 12/26/18 04:21 143/79 94 12/26/18 02:29 12/26/18 00:00 100 12/25/18 23:19 129/86 94 12/25/18 22:20 12/25/18 22:11 20 12/25/18 22:09 97 12/25/18 22:01 20 12/25/18 22:00 12/25/18 21:23 12/25/18 20:53 12/25/18 19:01 136/80 96 12/25/18 16:53 135/63 12/25/18 16:15 130/74 98 12/25/18 13:58 135/63 12/25/18 12:18 135/63 99 12/25/18 12:00 135/63 98 12/25/18 11:38 18 100 12/25/18 11:24 20 12/25/18 10:00 98 12/25/18 09:32 138/81 12/25/18 09:29 138/81 92 - Physical Examination General: No Apparent Distress, Other (morbidly obese) Cardiac: Positive: irregularly irregular Neuro: Positive: Grossly Intact Abdomen: Positive: Soft Skin: Positive: Clear Extremities: Absent: edema
[2018-12-26] MEDS: OxyCONTIN PO SCH ×3 (09:13→22:21)
[2018-12-26] MEDS: CORDARONE PO SCH ×2 (09:13→22:22)
[2018-12-26] MEDS: SODIUM CHLORIDE FLUSH SYRINGE 10 ML IV SCH ×2 (09:14→22:25)
[2018-12-26] MEDS: LOVENOX SUB-Q SCH ×2 (09:14→22:22)
[2018-12-26] MEDS: ATROVENT IH SCH ×3 (09:54→20:53)
[2018-12-26] MEDS: PERCOCET 5/325 PO PRN ×2 (13:04→18:00)
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
--- NOTE | 2018-12-26 16:40 | Progress Note ---
Assessment and Plan Patient awake. Patient morbidly obese and sitting up by the side of the bed. BIPAP in room on standby. Patient is on 3L nasal cannula. O2 saturation 95%. No acute respiratory distress. Patient has a history of smoking 2 packs a day for 15 years. 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 Allergic to aspirin, ibuprofen, and prochlorperazine. - Patient Problems (1) Chest pain Current Visit: Yes Status: Acute Qualifiers: Chest pain type: unspecified Qualified Code(s): R07.9 - Chest pain, unspe cified Plan to address problem: Magement as per cardiology. (2) Atrial fibrillation with RVR Current Visit: Yes Status: Acute Plan to address problem: patient is S/C [place]. Magement as pe cardiology (3) Aortic stenosis Current Visit: Yes Status: Acute Plan to address problem: Management as er cardiology. (4) ORDONEZ (dyspnea on exertion) Current Visit: Yes Status: Acute Plan to address problem: Rcomend to loose weight. Albuterol inhaler 2 puffs po qid prn for shortness of breath. (5) GERD (gastroesophageal reflux disease) Current Visit: No Status: Acute Plan to address problem: Recommend GI prophylaxis. (6) Hypertension Current Visit: No Status: Acute Qualifiers: Hypertension type: essential hypertension Qualified Code(s): I10 - Essential (primary) hypertension Plan to address problem: Management as per primary care. Subjective Date of service: 12/26/18 Interval history: Patient awake. Patient morbidly obese and sitting up by the side of the bed. BIPAP in room on standby. Patient is on 3L nasal cannula. O2 saturation 95%. No acute respiratory distress. Patient has a history of smoking 2 packs a day for 15 years. 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 Allergic to aspirin, ibuprofen, and prochlorperazine. Objective Vital Signs - 12hr 12/26/18 12/26/18 12/26/18 08:50 09:54 10:06 Temperature 98.4 F Pulse Rate [ 78 74 Anterior Bilateral Throughout] Respiratory 20 Rate Respiratory 20 20 Rate [Anterior Bilateral Throughout] Blood Pressure 146/85 O2 Sat by Pulse 95 Oximetry 12/26/18 12/26/18 13:41 13:51 Temperature Pulse Rate [ 90 79 Anterior Bilateral Throughout] Respiratory Rate Respiratory 20 20 Rate [Anterior Bilateral Throughout] Blood Pressure O2 Sat by Pulse Oximetry Constitutional: no acute distress, alert, other (Morbidlybese.) Eyes: non-icteric ENT: oropharynx moist Neck: supple, no lymphadenopathy Ascultation: Bilateral: diminished breath sounds Cardiovascular: regular rate and rhythm Gastrointestinal: normoactive bowel sounds Integumentary: normal Extremities: no cyanosis Neurologic: normal mental status, non-focal exam, pupils equal and round, CN II- XII normal Psychiatric: mood appropriate CBC and BMP: 12/23/18 01:22 12/23/18 01:22 ABG, PT/INR, D-dimer: PT/INR, D-dimer 271.74 ng/mlDDU (0-234) H 12/23/18 04:15 Abnormal lab findings: Abnormal Labs 12/23/18 12/23/18 12/23/18 01:22 01:22 04:15 RBC 5.62 H Hgb 15.7 H Hct 47.4 H RDW 15.6 H D-Dimer 271.74 H Glucose 109 H POC Glucose ALT 58 H Total Creatine Kinase Albumin 3.8 L 12/23/18 12/23/18 12/23/18 04:15 10:30 12:13 RBC Hgb Hct RDW D-Dimer Glucose POC Glucose 123 H ALT Total Creatine Kinase 576 H 599 H Albumin 12/23/18 12/23/18 12/24/18 17:32 21:24 08:22 RBC Hgb Hct RDW D-Dimer Glucose POC Glucose 119 H 127 H 127 H ALT Total Creatine Kinase Albumin 12/24/18 12/24/18 12/24/18 12:52 17:04 20:28 RBC Hgb Hct RDW D-Dimer Glucose POC Glucose 107 H 127 H 131 H ALT Total Creatine Kinase Albumin 12/25/18 12/25/18 07:32 12:09 RBC Hgb Hct RDW D-Dimer Glucose POC Glucose 110 H 110 H ALT Total Creatine Kinase Albumin
[2018-12-26] MEDS: LANOXIN PO SCH (18:00)
[2018-12-26] MEDS ORDERED: RESTORIL PO PRN (22:25)
[2018-12-27] MEDS: PERCOCET 5/325 PO PRN ×2 (02:07→08:51)
[2018-12-27 05:04] LABS: INR 0.97 (0.87-1.13)
[2018-12-27 05:05] LABS: BUN/Creatinine Ratio 13; Blood Urea Nitrogen 14 mg/dL (9-20); Calcium 8.7 mg/dL (8.4-10.2); Hemolysis Index 31
[2018-12-27] MEDS: OxyCONTIN PO SCH ×3 (05:52→21:36)
[2018-12-27] MEDS: CARDIZEM PO SCH ×3 (05:53→21:34)
[2018-12-27] MEDS: HumaLOG SUB-Q SCH ×4 (07:30→21:36)
[2018-12-27] MEDS: ATROVENT IH SCH ×3 (08:49→21:02)
[2018-12-27] MEDS: LOVENOX SUB-Q SCH ×2 (10:00→21:35)
[2018-12-27] MEDS: CORDARONE PO SCH ×2 (10:00→21:34)
[2018-12-27] MEDS: SODIUM CHLORIDE FLUSH SYRINGE 10 ML IV SCH ×2 (10:00→21:35)
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
[2018-12-27] MEDS ORDERED: NACL 0.9% 500 ML 500 ML ONE (10:48)
[2018-12-27] MEDS ORDERED: NACL 0.9% 500 ML 500 ML IV SCH (11:00)
[2018-12-27] MEDS ORDERED: NITROGLYCERIN SYRINGE 0 ML ONE (12:17)
[2018-12-27] MEDS ORDERED: HEPARIN 10,000 UNITS/10 ML ONE (12:17)
[2018-12-27] MEDS ORDERED: XYLOCAINE 2% INFILTRATI ONE (12:17)
[2018-12-27] MEDS ORDERED: HEPARIN/NS 5000 UNIT/500ML(CATH LAB) 1,000 ML IR ONE (12:17)
[2018-12-27] MEDS ORDERED: VERSED ONE (12:18)
[2018-12-27] MEDS: SUBLIMAZE ONE ×3 (12:57→13:03)
--- NOTE | 2018-12-27 13:55 | Cardiac Catherization Report ---
CARDIAC CATHETERIZATION REASON FOR PROCEDURE: Shortness of breath, congestive heart failure, aortic stenosis. PROCEDURE: 1. Right heart catheterization. 2. Left heart catheterization. 3. Selective left and right coronary angiography. 4. Left ventricle angiography. 5. Sedation time start 12:56, end 13:20. The patient was prepped and draped in a sterile fashion after informed consent. The right femoral artery and vein were both entered using Seldinger technique. A 6-[place] sheath was placed in the artery and a 7-[place] sheath in the vein. A [place] catheter was then advanced to the pulmonary artery position. A dual lumen pigtail catheter was advanced in the left ventricle. Cardiac output was measured using thermodilution method. Simultaneous left and right heart filling pressures were measured. The [place] catheter was then withdrawn and right heart pressures recorded on pullback. We then recorded simultaneous left ventricular systolic and ascending aortic pressures for further assessment of the aortic valve stenosis. The pigtail catheter was then used to perform left ventricle angiography, following which it was redrawn, and simultaneous left and right coronary angiography was performed using #4 left and right [place] catheters. The catheters were then removed, sheath removed, and hemostasis achieved using an Angio-Seal device over the arterial puncture, and manual compression over the venous puncture. The patient was returned to the postprocedure unit in stable condition. There were no complications. FINDINGS: HEMODYNAMICS: The mean right atrial pressure was 20. Right ventricular pressure was 60/25. Pulmonary artery pressure was 60/35. The mean pulmonary artery wedge pressure was 25-30. Left ventricular end-diastolic pressure was 30-35. Cardiac output was 5.7 liters per minute. AORTIC STENOSIS: Simultaneous left ventricular and ascending aortic pressures revealed a 20 mm [id number] gradient across the aortic valve. The mean gradient was __21.8___ mmHg. Using the Gorlin equation, there was mild aortic stenosis with a calculated aortic valve area of __1.65__ square cm. CORONARY ANGIOGRAPHY: The left main coronary artery was angiographically normal. The left anterior descending artery and its diagonal branches were angiographically normal. A large ramus intermedius artery was angiographically normal. The circumflex artery and its obtuse marginal branches were angiographically normal. The right coronary artery was dominant and similarly angiographically normal. There was well preserved left ventricular systolic function, ejection fraction 50-55%. CONCLUSION: 1. Moderate to severe elevation of the right and left heart filling pressures, moderate to severe pulmonary hypertension. 2. Mild aortic stenosis, with a [id number] gradient of 20 mmHg, mean gradient of __21.8___ mmHg, and aortic valve area of __1.65___ square cm. 3. Angiographically normal coronary arteries. 4. Well preserved left ventricular systolic function, ejection fraction 50-55%. RECOMMENDATIONS: 1. Conservative cardiac management of mild aortic stenosis. 2. Pulmonary evaluation and management of the patient's sleep apnea and pulmonary hypertension. JOB# [id number] ZEHRA/ROSA ALVAREZ
[2018-12-27] MEDS ORDERED: NACL 0.9% 1000 ML 1,000 ML IV SCH (14:00)
--- NOTE | 2018-12-27 14:02 | Event Note ---
Date: 12/27/18 Patient underwent a right and left heart catheterization, no complications. Findings: 1. Severe elevation of right heart filling pressures, moderately severe pulmonary hypertension with pulmonary artery systolic pressure of 60. 2. Mild aortic stenosis. 3. Angiographically normal coronary arteries. 4. Well-preserved left ventricular systolic function, ejection fraction 55%. Medications: Pulmonary management of sleep apnea, pulmonary hypertension and COPD. Mild aortic stenosis will be followed and managed conservatively. Heart failure with preserved ejection fraction or be treated with diuretics, blood pressure management and dietary salt restriction.
[2018-12-27] MEDS: LANOXIN PO SCH (18:26)
[2018-12-28] MEDS: PERCOCET 5/325 PO PRN (04:21)
[2018-12-28] MEDS: CARDIZEM PO SCH ×2 (05:26→18:00)
[2018-12-28] MEDS: OxyCONTIN PO SCH ×2 (05:27→17:59)
[2018-12-28 07:17] LABS: Basophils % (Auto) 0.3 % (0.0-1.8); Eosinophils # (Auto) 0.1 K/mm3 (0.0-0.4); Eosinophils % (Auto) 1.8 % (0.0-4.3); Hematocrit 41.1 % (35.5-45.6); Hemoglobin 13.5 gm/dl (11.8-15.2); Lymphocytes # (Auto) 1.5 K/mm3 (1.2-5.4); Lymphocytes % (Auto) 30.9 % (13.4-35.0); Mean Corpuscular HGB Conc 33 % (32-34); Mean Corpuscular Volume 85 fl (84-94); Monocytes # (Auto) 0.4 K/mm3 (0.0-0.8); Monocytes % (Auto) 7.8 % (0.0-7.3); Platelet Count 197 K/mm3 (140-440); Red Blood Count 4.86 M/mm3 (3.65-5.03); Red Cell Distribution Width 15.1 % (13.2-15.2)
[2018-12-28] MEDS: HumaLOG SUB-Q SCH ×2 (07:30→11:30)
[2018-12-28] MEDS: ATROVENT IH SCH ×2 (07:36→16:17)
[2018-12-28 07:38] LABS: BUN/Creatinine Ratio 14; Blood Urea Nitrogen 17 mg/dL (9-20); Calcium 9.1 mg/dL (8.4-10.2); Hemolysis Index 5
--- NOTE | 2018-12-28 09:12 | Progress Note ---
Assessment and Plan Shortness of breath Cardiomegaly on CXR Negative troponin MPI 06/2018 showing no ischemia Atrial fibrillation rate control with amiodarone, digoxin and cardizem Morbid obesity Obstructive sleep apnea Type II DM Systemic Hypertension Hyperlipidemia COPD Nicotine dependence Cardiac workup this admission: Echocardiogram shows normal left ventricular ejection fraction of 60-65%, but at least mild aortic stenosis with trans-aortic mean gradient of 21. Right and left heart catheterization findings: 1. Severe elevation of right heart filling pressures, moderately severe pulmonary hypertension with pulmonary artery systolic pressure of 60. 2. Mild aortic stenosis. 3. Angiographically normal coronary arteries. 4. Well-preserved left ventricular systolic function, ejection fraction 55%. Plan: Continue rate controlling agents for atrial fibrillation that persists. Resume eliquis for oral anticoagulation therapy. Mild aortic stenosis will be followed and managed conservatively. Stable cardiac ho. Subjective Date of service: 12/28/18 Interval history: Patient complains of generalized pain. Afib with a well controlled ventricular rate on telemetry. Objective Vital Signs Temp Pulse Pulse Resp Resp BP Pulse Ox 12/28/18 08:08 86 18 12/28/18 07:39 99 12/28/18 07:36 109 H 20 12/28/18 05:26 100 H 118/75 12/28/18 04:10 100 H 12/28/18 04:08 98.4 F 91 H 19 118/75 99 12/27/18 23:41 98.2 F 100 H 19 128/63 96 12/27/18 23:37 98 H 15 100 12/27/18 21:34 101 H 136/70 12/27/18 21:03 97 12/27/18 21:02 94 H 16 12/27/18 20:00 98 H 12/27/18 19:48 98.5 F 93 H 18 136/70 97 12/27/18 16:47 98.4 F 18 121/58 - Physical Examination General: No Apparent Distress, Other (morbidly obese) Neck: Positive: neck supple Cardiac: Positive: irregularly irregular Lungs: Positive: Decreased Breath Sounds Neuro: Positive: Grossly Intact Incision: Cardiac Cath Site (right groin: intact) Extremities: Absent: edema - Labs and Meds CBC 12/28/18 Range/Units 04:25 WBC 4.9 (4.5-11.0) K/mm3 RBC 4.86 (3.65-5.03) M/mm3 Hgb 13.5 (11.8-15.2) gm/dl Hct 41.1 (35.5-45.6) % Plt Count 197 (140-440) K/mm3 Lymph # 1.5 (1.2-5.4) K/mm3 [place] # 0.4 (0.0-0.8) K/mm3 Eos # 0.1 (0.0-0.4) K/mm3 Baso # 0.0 (0.0-0.1) K/mm3 Comprehensive Metabolic Panel 12/28/18 Range/Units 04:25 Sodium 143 D (137-145) mmol/L Potassium 4.8 (3.6-5.0) mmol/L Chloride 103.7 (98-107) mmol/L Carbon Dioxide 25 (22-30) mmol/L BUN 17 (9-20) mg/dL Creatinine 1.2 (0.8-1.5) mg/dL Glucose 87 (75-100) mg/dL Calcium 9.1 (8.4-10.2) mg/dL
[2018-12-28] MEDS: CORDARONE PO SCH (09:38)
[2018-12-28] MEDS: SODIUM CHLORIDE FLUSH SYRINGE 10 ML IV SCH (10:00)
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
[2018-12-28 17:21] VITALS: BP 173/103
[2018-12-28] MEDS: LANOXIN PO SCH (17:59)
--- NOTE | 2018-12-28 19:29 | Progress Note ---
Assessment and Plan Patient awake. Patient morbidly obese and resting in bed in Prone position.No acute respiratory distress.O2 saturation 93%. BIPAP in room on standby. Patient had cardiac cath yesterday. - Patient Problems (1) Chest pain Current Visit: Yes Status: Acute Qualifiers: Chest pain type: unspecified Qualified Code(s): R07.9 - Chest pain, unspecified Plan to address problem: Magement as per cardiology. (2) Atrial fibrillation with RVR Current Visit: Yes Status: Acute Plan to address problem: patient is S/C [place]. Magement as pe cardiology (3) Aortic stenosis Current Visit: Yes Status: Acute Plan to address problem: Management as er cardiology. (4) ORDONEZ (dyspnea on exertion) Current Visit: Yes Status: Acute Plan to address problem: Rcomend to loose weight. Albuterol inhaler 2 puffs po qid prn for shortness of breath. (5) GERD (gastroesophageal reflux disease) Current Visit: No Status: Acute Plan to address problem: Recommend GI prophylaxis. (6) Hypertension Current Visit: No Status: Acute Qualifiers: Hypertension type: essential hypertension Qualified Code(s): I10 - Essential (primary) hypertension Plan to address problem: Management as per primary care. (7) Morbid obesity with BMI of 45.0-49.9, adult Current Visit: Yes Status: Acute Plan to address problem: Recommend to loose weight. Recommend exercise and Diet. Recommend sleep study as out patient. Subjective Date of service: 12/28/18 Interval history: Patient awake. Patient morbidly obese and resting in bed in Prone position.No acute respiratory distress.O2 saturation 93%. BIPAP in room on standby. Patient had cardiac cath yesterday. Objective Vital Signs - 12hr 12/28/18 12/28/18 12/28/18 07:36 07:39 08:03 Temperature 98.4 F Pulse Rate 89 Pulse Rate [ 109 H Anterior Bilateral Throughout] Respiratory 20 Rate Respiratory 20 Rate [Anterior Bilateral Throughout] Blood Pressure 123/74 O2 Sat by Pulse 99 96 Oximetry 12/28/18 12/28/18 12/28/18 08:08 11:31 16:17 Temperature 97.6 F Pulse Rate 98 H 56 L Pulse Rate [ 86 Anterior Bilateral Throughout] Respiratory 20 Rate Respiratory 18 Rate [Anterior Bilateral Throughout] Blood Pressure 125/76 173/103 O2 Sat by Pulse 95 93 Oximetry 12/28/18 12/28/18 16:19 16:29 Temperature Pulse Rate Pulse Rate [ 77 87 Anterior Bilateral Throughout] Respiratory Rate Respiratory 18 18 Rate [Anterior Bilateral Throughout] Blood Pressure O2 Sat by Pulse Oximetry Constitutional: no acute distress, alert, other (Morbidlybese.) Eyes: non-icteric ENT: oropharynx moist Neck: supple, no lymphadenopathy Ascultation: Bilateral: diminished breath sounds Cardiovascular: regular rate and rhythm Gastrointestinal: normoactive bowel sounds Integumentary: normal Extremities: no cyanosis Neurologic: normal mental status, non-focal exam, pupils equal and round, CN II- XII normal Psychiatric: mood appropriate CBC and BMP: 12/28/18 04:25 12/28/18 04:25 ABG, PT/INR, D-dimer: PT/INR, D-dimer PT 13.5 Sec. (12.2-14.9) 12/27/18 04:32 INR 0.97 (0.87-1.13) 12/27/18 04:32 271.74 ng/mlDDU (0-234) H 12/23/18 04:15 Abnormal lab findings: Abnormal Labs 12/23/18 12/23/18 12/23/18 01:22 01:22 04:15 RBC 5.62 H Hgb 15.7 H Hct 47.4 H RDW 15.6 H [place] % (Auto) D-Dimer 271.74 H Sodium Glucose 109 H POC Glucose ALT 58 H Total Creatine Kinase Albumin 3.8 L 12/23/18 12/23/18 12/23/18 04:15 10:30 12:13 RBC Hgb Hct RDW [place] % (Auto) D-Dimer Sodium Glucose POC Glucose 123 H ALT Total Creatine Kinase 576 H 599 H Albumin 12/23/18 12/23/18 12/24/18 17:32 21:24 08:22 RBC Hgb Hct RDW [place] % (Auto) D-Dimer Sodium Glucose POC Glucose 119 H 127 H 127 H ALT Total Creatine Kinase Albumin 12/24/18 12/24/18 12/24/18 12:52 17:04 20:28 RBC Hgb Hct RDW [place] % (Auto) D-Dimer Sodium Glucose POC Glucose 107 H 127 H 131 H ALT Total Creatine Kinase Albumin 12/25/18 12/25/18 12/27/18 07:32 12:09 04:32 RBC Hgb Hct RDW [place] % (Auto) D-Dimer Sodium 136 L Glucose 106 H POC Glucose 110 H 110 H ALT Total Creatine Kinase Albumin 12/28/18 04:25 RBC Hgb Hct RDW [place] % (Auto) 7.8 H D-Dimer Sodium Glucose POC Glucose ALT Total Creatine Kinase Albumin
[2018-12-28] MEDS ORDERED: ELIQUIS PO SCH (22:00)
[2018-12-28] MEDS ORDERED: CORDARONE PO SCH (22:00)
== END 2018-12-28 21:05 | disposition home health service (06) | DRG 286 ==
LOC: ED 23:29 → CC1 12-23 02:22 → 4A 12-24 12:40
PROVIDERS: ADMIT Internal Medicine; ATTEND Internal Medicine
PROC: 06HY33Z Insertion of Infusion Device into Lower Vein, Percutaneous Approach (ICD-10-PCS; 2018-12-23)
PROC: 5A09357 Assistance with Respiratory Ventilation, Less than 24 Consecutive Hours, Continuous Positive Airway Pressure (ICD-10-PCS; 2018-12-24)
PROC: 5A09357 Assistance with Respiratory Ventilation, Less than 24 Consecutive Hours, Continuous Positive Airway Pressure (ICD-10-PCS; 2018-12-25)
PROC: 5A09357 Assistance with Respiratory Ventilation, Less than 24 Consecutive Hours, Continuous Positive Airway Pressure (ICD-10-PCS; 2018-12-26)
PROC: 4A023N8 Measurement of Cardiac Sampling and Pressure, Bilateral, Percutaneous Approach (ICD-10-PCS; principal; 2018-12-27)
PROC: B2111ZZ Fluoroscopy of Multiple Coronary Arteries using Low Osmolar Contrast (ICD-10-PCS; 2018-12-27)
PROC: B2151ZZ Fluoroscopy of Left Heart using Low Osmolar Contrast (ICD-10-PCS; 2018-12-27)
PROC: 5A09357 Assistance with Respiratory Ventilation, Less than 24 Consecutive Hours, Continuous Positive Airway Pressure (ICD-10-PCS; 2018-12-27)
DX: I48.91 Unspecified atrial fibrillation (principal); J96.01 Acute respiratory failure with hypoxia; I47.1 Supraventricular tachycardia; I50.9 Heart failure, unspecified; F17.210 Nicotine dependence, cigarettes, uncomplicated; G89.29 Other chronic pain; J44.9 Chronic obstructive pulmonary disease, unspecified; G43.909 Migraine, unspecified, not intractable, without status migrainosus; E66.2 Morbid (severe) obesity with alveolar hypoventilation; F11.20 Opioid dependence, uncomplicated; I35.0 Nonrheumatic aortic (valve) stenosis; I11.0 Hypertensive heart disease with heart failure; Z68.42 Body mass index [BMI] 45.0-49.9, adult; Z88.2 Allergy status to sulfonamides; Z88.8 Allergy status to other drugs, medicaments and biological substances; Z82.49 Family history of ischemic heart disease and other diseases of the circulatory system
CPT/HCPCS: 36415; 71045; 78582; 80048; 80053; 82550; 82553; 82962; 84443; 84484; 85025; 85027; 85379; 85610; 93005; 93010; 93306; 93460; 93970; 94640; 94660; 94760; G0378; A9540; A9558; C1760; C1894; J0282; J1160; J1170; J1644; J1650; J1940; J2060; J2250; J2270; J2405; J2920; J3010; J7040; J7060; Q9967

== ENCOUNTER 2019-07-18 16:51 | Inpatient (IN) | payer MEDICAID ==
--- NOTE | 2019-07-18 17:32 | Event Note ---
ED Screening Note Date of service: 07/18/19 Time: 17:31 ED Screening Note: 49 y o male presets with cp/sob smoker tobacco PMH:DM This initial assessment/diagnostic orders/clinical plan/treatment(s) is/are subject to change based on patients health status, clinical progression and re-assessment by fellow clinical providers in the ED. Further treatment and workup at subsequent clinical providers discretion. Patient/guardian urged not to elope from the ED as their condition may be serious if not clinically assessed and managed. Initial orders include: labs, main side evl
--- NOTE | 2019-07-18 18:37 | XRay Report ---
CHEST 2 VIEWS INDICATION / CLINICAL INFORMATION: Dyspnea. COMPARISON: None available. FINDINGS: SUPPORT DEVICES: None. HEART / MEDIASTINUM: Mild cardiomegaly and pulmonary venous hypertension. LUNGS / PLEURA: No significant pulmonary or pleural abnormality. No pneumothorax. ADDITIONAL FINDINGS: No significant additional findings. IMPRESSION: 1. Cardiomegaly and pulmonary venous hypertension Signer Name: Conrad Grier MD Signed: 07/18/2019 6:32 PM Workstation Name: [id number]
[2019-07-18] MEDS ORDERED: FUROSEMIDE 40 MG/4 ML INJ IV ONE (18:42)
[2019-07-18] MEDS ORDERED: NITROGLYCERIN 0.4 MG TAB SUBL SL ONE (18:42)
[2019-07-18 18:47] LABS: Basophils # (Auto) 0.1 K/mm3 (0.0-0.1); Basophils % (Auto) 0.7 % (0.0-1.8); Eosinophils # (Auto) 0.1 K/mm3 (0.0-0.4); Eosinophils % (Auto) 0.7 % (0.0-4.3); Hematocrit 46.1 % (35.5-45.6); Hemoglobin 15.1 gm/dl (11.8-15.2); Lymphocytes # (Auto) 2.6 K/mm3 (1.2-5.4); Lymphocytes % (Auto) 29.6 % (13.4-35.0); Mean Corpuscular HGB Conc 33 % (32-34); Mean Corpuscular Volume 85 fl (84-94); Monocytes # (Auto) 0.5 K/mm3 (0.0-0.8); Monocytes % (Auto) 5.4 % (0.0-7.3); Platelet Count 209 K/mm3 (140-440); Red Blood Count 5.44 M/mm3 (3.65-5.03); Red Cell Distribution Width 14.8 % (13.2-15.2)
--- NOTE | 2019-07-18 18:54 | Emergency Department Report ---
ED Shortness of Breath HPI - General Chief Complaint: Dyspnea/Respdistress Stated Complaint: JOSE/CHEST PAIN Time Seen by Provider: 07/18/19 18:37 Source: patient Mode of arrival: Wheelchair Limitations: No Limitations - History of Present Illness Initial Comments: Patient is 49 years old male, morbidly obese, history of COPD, congestive heart failure, obstructive sleep apnea, atrial fibrillation and hypertension. Patient presented to the ER complaining of shortness of breath and difficulty breathing for the last 3 days getting worse today. Patient stated that he is compliant with his medication. Patient is also complaining of chest pain, tightness in nature with no radiation. Patient stated that he is having difficulty laying flat because of the shortness of breath. Patient also stated that he is really out of breath when he started walking. Patient denied any fever, chills, abdominal pain, nausea or vomiting. MD Complaint: shortness of breath, cough -: days(s) (2) Known History Of: COPD, congestive heart failure - Related Data Previous Rx's Medication Instructions Recorded Last Taken Type ALBUTEROL Inhaler (OR & NICU) 2 puff IH QID PRN #1 inhalation 12/28/18 Unknown Rx [ProAir HFA Inhaler] Amiodarone [Cordarone 200 MG TAB] 200 mg PO BID #60 tablet 12/28/18 Unknown Rx Apixaban [Eliquis] 5 mg PO Q12HR #60 tablet 12/28/18 Unknown Rx Digoxin [Lanoxin] 0.25 mg PO DAILY@1700 #30 tablet 12/28/18 Unknown Rx dilTIAZem [Cardizem] 90 mg PO Q8HR #90 tablet 12/28/18 Unknown Rx oxyCODONE /ACETAMINOPHEN [Percocet 1 tab PO Q8H PRN #15 tablet 12/28/18 Unknown Rx 5/325 mg] Allergies Allergy/AdvReac Type Severity Reaction Status Date / Time aspirin Allergy Hives Verified 07/03/18 22:11 ibuprofen [From Motrin] Allergy Hives Verified 07/03/18 22:11 prochlorperazine Allergy Hives Verified 07/03/18 22:12 [From Compazine] ED Review of Systems ROS: Stated complaint: JOSE/CHEST PAIN Other details as noted in HPI Comment: All other systems reviewed and negative Constitutional: denies: chills, fever Respiratory: cough, orthopnea, shortness of breath, SOB with exertion, SOB at rest. denies: stridor, wheezing Cardiovascular: chest pain, dyspnea on exertion, orthopnea. denies: palpitations Gastrointestinal: denies: abdominal pain, nausea, vomiting, diarrhea, constipation, hematemesis, melena, hematochezia Musculoskeletal: denies: back pain Neurological: denies: headache, weakness, numbness, paresthesias, confusion ED Past Medical Hx - Past Medical History Previous Medical History?: Yes Hx Hypertension: Yes Hx Congestive Heart Failure: No Hx Diabetes: Yes Hx Deep Vein Thrombosis: No Hx Headaches / Migraines: Yes Hx Asthma: No Hx COPD: Yes Hx HIV: No Additional medical history: Sleep Apnea, Morbid Obesity, Chronic Back Pain - Surgical History Past Surgical History?: No Hx Pacemaker: No Hx Internal Defibrillator: No Additional Surgical History: Sleep Apnea - Social History Smoking Status: Current Every Day Smoker Substance Use Type: None - Medications Home Medications: Home Medications Medication Instructions Recorded Confirmed Last Taken Type ALBUTEROL Inhaler (OR & NICU) 2 puff IH QID PRN #1 inhalation 12/28/18 Unknown Rx [ProAir HFA Inhaler] Amiodarone [Cordarone 200 MG TAB] 200 mg PO BID #60 tablet 12/28/18 Unknown Rx Apixaban [Eliquis] 5 mg PO Q12HR #60 tablet 12/28/18 Unknown Rx Digoxin [Lanoxin] 0.25 mg PO DAILY@1700 #30 tablet 12/28/18 Unknown Rx dilTIAZem [Cardizem] 90 mg PO Q8HR #90 tablet 12/28/18 Unknown Rx oxyCODONE /ACETAMINOPHEN [Percocet 1 tab PO Q8H PRN #15 tablet 12/28/18 Unknown Rx 5/325 mg] ED Physical Exam - General Limitations: No Limitations General appearance: alert, in distress (moderate respiratory distress) - Head Head exam: Present: atraumatic, normocephalic, normal inspection - Eye Eye exam: Present: normal appearance - ENT ENT exam: Present: normal exam, normal orophraynx, mucous membranes moist - Neck Neck exam: Present: normal inspection, full ROM. Absent: tenderness, meningismus, lymphadenopathy, thyromegaly - Respiratory Respiratory exam: Present: respiratory distress, rales. Absent: wheezes, rhonchi, stridor, chest wall tenderness, accessory muscle use, decreased breath sounds, prolonged expiratory - Cardiovascular Cardiovascular Exam: Present: regular rate, normal rhythm, normal heart sounds - GI/Abdominal GI/Abdominal exam: Present: soft, normal bowel sounds. Absent: distended, tenderness, guarding, rebound, rigid, organomegaly, mass, bruit, pulsatile mass, hernia - Extremities Exam Extremities exam: Present: normal inspection, full ROM, normal capillary refill, pedal edema. Absent: calf tenderness - Back Exam Back exam: Present: normal inspection, full ROM. Absent: CVA tenderness (R), CVA tenderness (L), muscle spasm, paraspinal tenderness, vertebral tenderness - Neurological Exam Neurological exam: Present: alert, oriented X3, CN II-XII intact, normal gait, reflexes normal - Psychiatric Psychiatric exam: Present: normal mood - Skin Skin exam: Present: warm, intact, normal color ED Course Vital Signs 07/18/19 07/18/19 07/18/19 17:28 19:17 20:43 Temperature 97.9 F Pulse Rate 95 H 83 Pulse Rate [ 108 H Bilateral Throughout] Respiratory 20 24 Rate Respiratory 17 Rate [Bilateral Throughout] Blood Pressure 191/114 Blood Pressure 169/93 [Left] O2 Sat by Pulse 96 97 Oximetry ED Medical Decision Making - Lab Data Result diagrams: 07/18/19 18:35 07/18/19 18:35 - EKG Data -: EKG Interpreted by Me EKG shows normal: sinus rhythm Rate: normal - EKG Data Interpretation: no acute changes - Radiology Data Radiology results: report reviewed - Medical Decision Making Patient is 49 years old male, morbidly obese, history of COPD, congestive heart failure, obstructive sleep apnea, atrial fibrillation and hypertension. Patient presented to the ER complaining of shortness of breath and difficulty breathing for the last 3 days getting worse today. Patient stated that he is compliant with his medication. Patient is also complaining of chest pain, tightness in nature with no radiation. Patient stated that he is having difficulty laying flat because of the shortness of breath. Patient also stated that he is really out of breath when he started walking. Patient denied any fever, chills, abdominal pain, nausea or vomiting. EKG showed no ST elevation. Chest x-ray show pulmonary congestion consistent with congestive heart failure exacerbation. Patient received Lasix 60 mg IV, nitroglycerin 0.4 mg sublingual. Labs reviewed and is unremarkable. I discussed the patient is Dr. Moreno, he agreed to admit the patient to medical service for further management. Critical Care Time: Yes Critical care time in (mins) excluding proc time.: 30 Critical care attestation.: If time is entered above; I have spent that time in minutes in the direct care of this critically ill patient, excluding procedure time. ED Disposition Clinical Impression: Hypertensive urgency, SOB (shortness of breath), Acute exacerbation of congestive heart failure, COPD exacerbation Disposition: OP ADMIT IP TO THIS HOSP Is pt being admited?: Yes Condition: Stable Instructions: Chronic Obstructive Pulmonary Disease (ED)
[2019-07-18 19:13] LABS: BUN/Creatinine Ratio 15; Blood Urea Nitrogen 17 mg/dL (9-20); Calcium 9.3 mg/dL (8.4-10.2); Hemolysis Index 18
[2019-07-18 19:39] LABS: Alanine Aminotransferase 38 units/L (7-56); Albumin 4.1 g/dL (3.9-5)
[2019-07-18 19:53] LABS: Bilirubin,Direct < 0.2 mg/dL (0-0.2)
[2019-07-18] MEDS ORDERED: IPRATROPIUM 0.02% NEBU 2.5 ML IH ONE (20:29)
[2019-07-18] MEDS ORDERED: ALBUTEROL 2.5 MG/3 ML NEBU IH ONE (20:29)
[2019-07-18] MEDS ORDERED: MORPHINE 4 MG/1 ML INJ IV ONE (21:26)
[2019-07-18] MEDS ORDERED: ONDANSETRON 4 MG/2 ML INJ IV ONE (21:26)
[2019-07-18] MEDS ORDERED: NITROGLYCERIN 0.4 MG TAB SUBL SL PRN (22:21)
[2019-07-18] MEDS ORDERED: MAGNESIUM HYDROXIDE (MOM) ORAL LIQD UDC PO PRN (22:21)
[2019-07-18] MEDS ORDERED: ACETAMINOPHEN 325 MG TAB PO PRN (22:21)
[2019-07-18] MEDS ORDERED: ONDANSETRON 4 MG/2 ML INJ IV PRN (22:21)
[2019-07-18] MEDS ORDERED: MORPHINE 2 MG/1 ML INJ IV PRN (22:21)
--- NOTE | 2019-07-19 00:18 | History and Physical Report ---
History of Present Illness Date of examination: 07/18/19 Date of admission: 07/18/19 21:23 Chief complaint: Shortness of breath. History of present illness: 49-year-old -Japanese male who presents to the emergency room today complaining of shortness of breath or cough. Cough has not been productive. He has also had some chest pain which has resolved. Shortness of breath is said to be worse on exertion. He has not been able to lie down flat because of shortness of breath. He denies any fever no chills, no nausea vomiting. His work-up in the emergency room including chest x-ray reveals pulmonary congestion. Past History Past Medical History: COPD, other (Obstructive sleep apnea, obesity) Past Surgical History: tonsillectomy, Other (Hemorrhoidectomy.) Family history: hypertension, stroke Medications and Allergies Allergies Allergy/AdvReac Type Severity Reaction Status Date / Time aspirin Allergy Hives Verified 07/03/18 22:11 ibuprofen [From Motrin] Allergy Hives Verified 07/03/18 22:11 prochlorperazine Allergy Hives Verified 07/03/18 22:12 [From Compazine] Home Medications Medication Instructions Recorded Confirmed Last Taken Type ALBUTEROL Inhaler (OR & NICU) 2 puff IH QID PRN #1 inhalation 12/28/18 07/18/19 Unknown Rx [ProAir HFA Inhaler] Amiodarone [Cordarone 200 MG TAB] 200 mg PO BID #60 tablet 12/28/18 07/18/19 Unknown Rx Apixaban [Eliquis] 5 mg PO Q12HR #60 tablet 12/28/18 07/18/19 Unknown Rx dilTIAZem [Cardizem] 90 mg PO Q8HR #90 tablet 12/28/18 07/18/19 Unknown Rx oxyCODONE /ACETAMINOPHEN [Percocet 1 tab PO Q8H PRN #15 tablet 12/28/18 07/18/19 Unknown Rx 5/325 mg] Lasix TAB 25 mg PO DAILY 07/18/19 07/18/19 Unknown History traZODone 50 mg PO HS 07/18/19 07/18/19 Unknown History Active Meds: Active Medications Acetaminophen (Tylenol) 650 mg PO Q4H PRN PRN Reason: Pain MILD(1-3)/Fever >100.5/NICOLE Furosemide (Lasix) 40 mg IV BID@0600,1800 MEGAN Magnesium Hydroxide (Milk Of Magnesia) 30 ml PO Q4H PRN PRN Reason: Constipation Morphine Sulfate (Morphine) 2 mg IV Q4H PRN PRN Reason: Pain, Moderate (4-6) Morphine Sulfate (Morphine) 2 mg IV Q5MIN PRN PRN Reason: Chest Pain unrelieved by NTG Nitroglycerin (Nitrostat) 0.4 mg SL .Q5MIN PRN PRN Reason: Chest Pain Ondansetron HCl (Zofran) 4 mg IV Q8H PRN PRN Reason: Nausea And Vomiting Sodium Chloride (Sodium Chloride Flush Syringe 10 Ml) 10 ml IV BID MEGAN Sodium Chloride (Sodium Chloride Flush Syringe 10 Ml) 10 ml IV PRN PRN PRN Reason: LINE FLUSH Review of Systems Respiratory: shortness of breath, dyspnea on exertion, sleep apnea Exam - Constitutional Vitals: Temp Pulse Resp BP Pulse Ox 97.9 F 84 16 157/99 96 07/18/19 17:28 07/18/19 22:27 07/18/19 22:27 07/18/19 22:27 07/18/19 22:27 General appearance: Present: no acute distress - EENT Eyes: Present: PERRL, EOM intact ENT: hearing intact, clear oral mucosa, dentition normal - Neck Neck: Present: supple, normal ROM - Respiratory Respiratory effort: normal Respiratory: bilateral: rales - Cardiovascular Rhythm: regular Heart Sounds: Present: S1 & S2 - Extremities Extremities: no ischemia, pulses intact, Full ROM Extremity abnormal: edema (Trace bilateral ankle edema) Peripheral Pulses: within normal limits - Abdominal General gastrointestinal: Present: soft, non-tender, non-distended - Integumentary Integumentary: Present: clear, warm, dry - Musculoskeletal Musculoskeletal: strength equal bilaterally - Psychiatric Psychiatric: appropriate mood/affect, intact judgment & insight, cooperative - Neurologic Neurologic: CNII-XII intact, moves all extremities Results - Labs CBC & Chem 7: 07/19/19 04:27 07/19/19 04:27 Labs: Abnormal lab results 07/18/19 Range/Units 18:35 RBC 5.44 H (3.65-5.03) M/mm3 Hct 46.1 H (35.5-45.6) % Assessment and Plan - Patient Problems (1) Acute exacerbation of congestive heart failure Current Visit: Yes Status: Acute Plan to address problem: Patient to be diuresed with IV Lasix. We will monitor input and output and also monitor daily weight. (2) Hypertension Current Visit: No Status: Acute Qualifiers: Hypertension type: essential hypertension Qualified Code(s): I10 - Essential (primary) hypertension Plan to address problem: Blood pressure stable. We will continue routine home medication. (3) Morbid obesity with BMI of 45.0-49.9, adult Current Visit: No Status: Acute Plan to address problem: We will request dietary consult prior to discharge. (4) DVT prophylaxis Current Visit: Yes Status: Acute Plan to address problem: Patient placed on subcutaneous heparin. (5) Full code status Current Visit: Yes Status: Acute
[2019-07-19] MEDS: MORPHINE 2 MG/1 ML INJ IV PRN ×5 (00:31→21:39)
[2019-07-19 05:08] LABS: Basophils % (Auto) 0.4 % (0.0-1.8); Eosinophils % (Auto) 0.5 % (0.0-4.3); Hematocrit 46.9 % (35.5-45.6); Lymphocytes # (Auto) 2.2 K/mm3 (1.2-5.4); Mean Corpuscular HGB Conc 32 % (32-34); Mean Corpuscular Volume 86 fl (84-94); Monocytes # (Auto) 0.4 K/mm3 (0.0-0.8); Monocytes % (Auto) 5.8 % (0.0-7.3); Platelet Count 202 K/mm3 (140-440); Red Blood Count 5.47 M/mm3 (3.65-5.03); Red Cell Distribution Width 15.3 % (13.2-15.2)
[2019-07-19 05:12] LABS: INR 0.97 (0.87-1.13)
[2019-07-19 05:13] LABS: Partial Thromboplastin Time 29.9 Sec. (24.2-36.6)
[2019-07-19 05:19] LABS: BUN/Creatinine Ratio 15; Blood Urea Nitrogen 17 mg/dL (9-20); Hemolysis Index 6
[2019-07-19] MEDS: FUROSEMIDE 40 MG/4 ML INJ IV SCH ×2 (06:20→17:15)
--- NOTE | 2019-07-19 10:45 | Consultation ---
<DANIEL ABEBE - Last Filed: 07/19/19 11:06> History of Present Illness Consult date: 07/19/19 Consult reason: congestive heart failure History of present illness: This is a 49-year old male with pulmonary hypertension, obstructive sleep apnea, COPD on home oxygen, obesity and tobacco abuse who presents to this hospital with complaints of worsening shortness of breath. Noted a systolic blood pressure of 191 on presentation. Patient denies chest pain, coughs and co ngestion. He denies palpitations. There is no lower extremity edema. Labs shows a normal proBNP. A chest x-ray reports mild cardiomegaly with mild interstitial edema. Patient is known to [facility] and has undergone extensive cardiac workup. A cardiac catheterization done 12/2018 reports: 1. Severe elevation of right heart filling pressures, moderately severe pulmonary hypertension with pulmonary artery systolic pressure of 60. 2. Mild aortic stenosis. 3. Angiographically normal coronary arteries. 4. Well-preserved left ventricular systolic function, ejection fraction 55%. Mild aortic stenosis is managed conservatively and is followed on an outpatient basis. Patient also has a cardiac history of paroxysmal atrial fibrillation and takes Diltiazem for suppression and is on Eliquis for oral anticoagulation. His presenting ECG is sinus rhythm with occasional PVCs. Past History Past Medical History: COPD, other (Obstructive sleep apnea, obesity) Past Surgical History: tonsillectomy, Other (Hemorrhoidectomy.) Family history: hypertension, stroke Medications and Allergies Allergies Allergy/AdvReac Type Severity Reaction Status Date / Time aspirin Allergy Hives Verified 07/03/18 22:11 ibuprofen [From Motrin] Allergy Hives Verified 07/03/18 22:11 prochlorperazine Allergy Hives Verified 07/03/18 22:12 [From Compazine] Home Medications Medication Instructions Recorded Confirmed Last Taken Type ALBUTEROL Inhaler (OR & NICU) 2 puff IH QID PRN #1 inhalation 12/28/18 07/18/19 Unknown Rx [ProAir HFA Inhaler] Amiodarone [Cordarone 200 MG TAB] 200 mg PO BID #60 tablet 12/28/18 07/18/19 Unknown Rx Apixaban [Eliquis] 5 mg PO Q12HR #60 tablet 12/28/18 07/18/19 Unknown Rx dilTIAZem [Cardizem] 90 mg PO Q8HR #90 tablet 12/28/18 07/18/19 Unknown Rx oxyCODONE /ACETAMINOPHEN [Percocet 1 tab PO Q8H PRN #15 tablet 12/28/18 07/18/19 Unknown Rx 5/325 mg] Lasix TAB 25 mg PO DAILY 07/18/19 07/18/19 Unknown History traZODone 50 mg PO HS 07/18/19 07/18/19 Unknown History Amiodarone [Cordarone 200 MG TAB] 200 mg PO BID #60 tablet 07/23/19 Unknown Rx Famotidine/Ca Carb/Mag Hydrox 1 each PO BID PRN #60 tab.chew 07/23/19 Unknown Rx [Pepcid Complete Tablet Chew] dilTIAZem [Cardizem] 90 mg PO Q8HR #90 tablet 07/23/19 Unknown Rx Active Meds: Active Medications Acetaminophen (Tylenol) 650 mg PO Q4H PRN PRN Reason: Pain MILD(1-3)/Fever >100.5/NICOLE Furosemide (Lasix) 40 mg IV BID@0600,1800 MEGAN Last Admin: 07/19/19 06:20 Dose: 40 mg Documented by: Heparin Sodium (Porcine) (Heparin) 5,000 unit SUB-Q Q8HR [facility] Magnesium Hydroxide (Milk Of Magnesia) 30 ml PO Q4H PRN PRN Reason: Constipation Morphine Sulfate (Morphine) 2 mg IV Q4H PRN PRN Reason: Pain, Moderate (4-6) Last Admin: 07/19/19 08:20 Dose: 2 mg Documented by: Morphine Sulfate (Morphine) 2 mg IV Q5MIN PRN PRN Reason: Chest Pain unrelieved by NTG Nitroglycerin (Nitrostat) 0.4 mg SL .Q5MIN PRN PRN Reason: Chest Pain Ondansetron HCl (Zofran) 4 mg IV Q8H PRN PRN Reason: Nausea And Vomiting Sodium Chloride (Sodium Chloride Flush Syringe 10 Ml) 10 ml IV BID MEGAN Sodium Chloride (Sodium Chloride Flush Syringe 10 Ml) 10 ml IV PRN PRN PRN Reason: LINE FLUSH Physical Examination Vital Signs Temp Pulse Resp BP Pulse Ox 97.9 F 95 H 20 191/114 96 07/18/19 17:28 07/18/19 17:28 07/18/19 17:28 07/18/19 17:28 07/18/19 17:28 General appearance: no acute distress, obese HEENT: Positive: PERRL Neck: Positive: trachea midline Cardiac: Positive: Reg Rate and Rhythm Lungs: Positive: Decreased Breath Sounds Neuro: Positive: Grossly Intact Extremities: Absent: edema Results 07/19/19 04:27 07/19/19 04:27 Cardiac Enzymes 07/18/19 Range/Units 18:35 AST 30 (5-40) units/L Coagulation 07/19/19 Range/Units 04:27 PT 12.8 (12.2-14.9) Sec. INR 0.97 (0.87-1.13) APTT 29.9 (24.2-36.6) Sec. CBC 07/18/19 07/19/19 Range/Units 18:35 04:27 WBC 8.9 7.4 (4.5-11.0) K/mm3 RBC 5.44 H 5.47 H (3.65-5.03) M/mm3 Hgb 15.1 15.0 (11.8-15.2) gm/dl Hct 46.1 H 46.9 H (35.5-45.6) % Plt Count 209 202 (140-440) K/mm3 Lymph # 2.6 2.2 (1.2-5.4) K/mm3 [place] # 0.5 0.4 (0.0-0.8) K/mm3 Eos # 0.1 0.0 (0.0-0.4) K/mm3 Baso # 0.1 0.0 (0.0-0.1) K/mm3 Comprehensive Metabolic Panel 07/18/19 07/18/19 07/19/19 Range/Units 18:35 18:35 04:27 Sodium 144 143 (137-145) mmol/L Potassium 4.1 4.0 (3.6-5.0) mmol/L Chloride 102.7 103.3 (98-107) mmol/L Carbon Dioxide 25 28 (22-30) mmol/L BUN 17 17 (9-20) mg/dL Creatinine 1.1 1.1 (0.8-1.5) mg/dL Glucose 86 113 H (75-100) mg/dL Calcium 9.3 9.0 (8.4-10.2) mg/dL Direct Bilirubin < 0.2 (0-0.2) mg/dL Indirect Bilirubin 0.0 mg/dL AST 30 (5-40) units/L ALT 38 (7-56) units/L Alkaline Phosphatase 102 (35-129) units/L Total Protein 7.9 (6.3-8.2) g/dL Albumin 4.1 (3.9-5) g/dL Assessment and Plan Shortness of breath, multifactorial Heart failure with preserved ejection fraction Pulmonary hypertension -pulmonary artery systolic pressure of 60 by RHC 12/26 18 Obstructive sleep apnea, non compliant wit Cpap Morbid obesity COPD Nicotine dependent Paroxysmal Afib on Eliquis for oral anticoagulation as an outpatient on Diltiazem as an outpatient for suppression Hypertension Recommendations: IV diuretics for heart failure with a preserved ejection fraction Optimal blood pressure management. Dietary salt and sodium restriction. Resume medical therapy for paroxysmal atrial fibrillation. Pulmonary management of sleep apnea, pulmonary hypertension and COPD. <RAUL MEDINA - Last Filed: 07/26/19 10:07> Physical Examination Vital Signs Temp Pulse Resp BP Pulse Ox 97.9 F 95 H 20 191/114 96 07/18/19 17:28 07/18/19 17:28 07/18/19 17:28 07/18/19 17:28 07/18/19 17:28 Results 07/19/19 04:27 07/19/19 04:27 Assessment and Plan I have seen and evaluated the patient myself, and agree with the assessment and plan.
[2019-07-19] MEDS ORDERED: FLU VACC QUAD 2019-20 (3 YR UP)/PF 60 MCG/0.5 ML SYRINGE IM ONE (12:00)
[2019-07-19] MEDS: HEPARIN 5,000 UNIT/1 ML VIAL SUB-Q SCH ×2 (13:27→22:46)
--- NOTE | 2019-07-19 18:35 | Progress Note ---
Assessment and Plan Assessment and plan: --Acute on chronic diastolic congestive heart failure Current Visit: Yes Status: Acute Diuretics input output monitoring , cardiology following Echo ejection fraction 50%, pulmonary hypertension --Severe pulmonary hypertension: continue current management, pulmonary consult, --Acute on chronic respiratory failure; Multifactorial , secondary toobesity hypoventilation syndrome, obstructive sleep apnea, pulmonary hypertension Cardiology pulmonary following, optimize medications -- Hypertension Current Visit: No Status: Acute Blood pressure stable. Continue current antihypertensives -- Morbid obesity with BMI 59, adult Current Visit: No Status: Acute We will request dietary consult prior to discharge. Patient needs outpatient evaluation for bariatric weight reduction program When medically stable -- DVT prophylaxis Current Visit: Yes Status: Acute Patient placed on subcutaneous heparin. --Full code status Current Visit: Yes Status: Acute --noncompliance with CPAP strongly advised to comply with medications diet exercise follow-up visits and CPAP Cardiology and pulmonary evaluation and recommendations noted and appreciated Closely monitor and optimize medications Plan of care reviewed with the patient and his nurse Disposition; discharge home when medically stable History Interval history: Patient seen and examined in his room this morning medical records reviewed Patient complains of worsening shortness of breath, unable to tolerate BiPAP Patient refuses BiPAP Mild shortness of breath and vague chest pain Vital signs noted Hospitalist Physical - Constitutional Vitals: Temp Pulse Resp BP Pulse Ox 98.2 F 87 18 153/112 96 07/19/19 07:51 07/19/19 07:51 07/19/19 08:24 07/19/19 07:51 07/19/19 08:24 General appearance: Present: mild distress (Due to shortness of breath), obese (Morbidly obese) - EENT Eyes: Present: PERRL, EOM intact - Neck Neck: Present: supple, normal ROM - Respiratory Respiratory effort: normal Respiratory: bilateral: diminished, rhonchi, negative: rales, wheezing - Cardiovascular Rhythm: regular Heart Sounds: Present: S1 & S2 - Extremities Extremities: no ischemia Extremity abnormal: edema - Abdominal General gastrointestinal: soft, non-tender, non-distended, normal bowel sounds - Integumentary Integumentary: Present: clear, warm - Psychiatric Psychiatric: appropriate mood/affect, cooperative - Neurologic Neurologic: CNII-XII intact, moves all extremities Results - Labs CBC & Chem 7: 07/19/19 04:27 07/19/19 04:27 Labs: Laboratory Last Values WBC 7.4 K/mm3 (4.5-11.0) 07/19/19 04:27 RBC 5.47 M/mm3 (3.65-5.03) H 07/19/19 04:27 Hgb 15.0 gm/dl (11.8-15.2) 07/19/19 04:27 Hct 46.9 % (35.5-45.6) H 07/19/19 04:27 MCV 86 fl (84-94) 07/19/19 04:27 MCH 27 pg (28-32) L 07/19/19 04:27 MCHC 32 % (32-34) 07/19/19 04:27 RDW 15.3 % (13.2-15.2) H 07/19/19 04:27 Plt Count 202 K/mm3 (140-440) 07/19/19 04:27 Lymph % (Auto) 29.0 % (13.4-35.0) 07/19/19 04:27 [place] % (Auto) 5.8 % (0.0-7.3) 07/19/19 04:27 Eos % (Auto) 0.5 % (0.0-4.3) 07/19/19 04:27 Baso % (Auto) 0.4 % (0.0-1.8) 07/19/19 04:27 Lymph # 2.2 K/mm3 (1.2-5.4) 07/19/19 04:27 [place] # 0.4 K/mm3 (0.0-0.8) 07/19/19 04:27 Eos # 0.0 K/mm3 (0.0-0.4) 07/19/19 04:27 Baso # 0.0 K/mm3 (0.0-0.1) 07/19/19 04:27 Seg Neutrophils % 64.3 % (40.0-70.0) 07/19/19 04:27 Seg Neutrophils # 4.8 K/mm3 (1.8-7.7) 07/19/19 04:27 PT 12.8 Sec. (12.2-14.9) 07/19/19 04:27 INR 0.97 (0.87-1.13) 07/19/19 04:27 APTT 29.9 Sec. (24.2-36.6) 07/19/19 04:27 Sodium 143 mmol/L (137-145) 07/19/19 04:27 Potassium 4.0 mmol/L (3.6-5.0) 07/19/19 04:27 Chloride 103.3 mmol/L (98-107) 07/19/19 04:27 Carbon Dioxide 28 mmol/L (22-30) 07/19/19 04:27 Anion Gap 16 mmol/L 07/19/19 04:27 BUN 17 mg/dL (9-20) 07/19/19 04:27 Creatinine 1.1 mg/dL (0.8-1.5) 07/19/19 04:27 Estimated GFR > 60 ml/min 07/19/19 04:27 BUN/Creatinine Ratio 15 % 07/19/19 04:27 Glucose 113 mg/dL (75-100) H 07/19/19 04:27 Calcium 9.0 mg/dL (8.4-10.2) 07/19/19 04:27 Total Bilirubin < 0.20 mg/dL (0.1-1.2) 07/18/19 18:35 Direct Bilirubin < 0.2 mg/dL (0-0.2) 07/18/19 18:35 Indirect Bilirubin 0.0 mg/dL 07/18/19 18:35 AST 30 units/L (5-40) 07/18/19 18:35 ALT 38 units/L (7-56) 07/18/19 18:35 Alkaline Phosphatase 102 units/L (35-129) 07/18/19 18:35 Troponin T < 0.010 ng/mL (0.00-0.029) 07/18/19 18:35 NT-Pro-B Natriuret Pep 46.43 pg/mL (0-450) 07/18/19 18:35 Total Protein 7.9 g/dL (6.3-8.2) 07/18/19 18:35 Albumin 4.1 g/dL (3.9-5) 07/18/19 18:35 Albumin/Globulin Ratio 1.1 % 07/18/19 18:35 Active Medications - Current Medications Current Medications: Generic Name Dose Route Start Last Admin Trade Name Freq PRN Reason Stop Dose Admin Acetaminophen 650 mg 07/18/19 22:21 Tylenol PO Q4H PRN Pain MILD(1-3)/Fever >100.5/NICOLE Furosemide 40 mg 07/19/19 06:00 07/19/19 17:15 Lasix IV 40 mg BID@0600,1800 MEGAN Administration Heparin Sodium (Porcine) 5,000 unit 07/19/19 14:00 07/19/19 13:27 Heparin SUB-Q 5,000 unit Q8HR MEGAN Administration Magnesium Hydroxide 30 ml 07/18/19 22:21 Milk Of Magnesia PO Q4H PRN Constipation Morphine Sulfate 2 mg 07/18/19 22:21 07/19/19 17:30 Morphine IV 2 mg Q4H PRN Administration Pain, Moderate (4-6) Morphine Sulfate 2 mg 07/18/19 22:21 Morphine IV Q5MIN PRN Chest Pain unrelieved by NTG Nitroglycerin 0.4 mg 07/18/19 22:21 Nitrostat SL .Q5MIN PRN Chest Pain Ondansetron HCl 4 mg 07/18/19 22:21 Zofran IV Q8H PRN Nausea And Vomiting Sodium Chloride 10 ml 07/19/19 10:00 07/19/19 10:16 Sodium Chloride Flush Syringe 10 Ml IV 10 ml BID MEGAN Administration Sodium Chloride 10 ml 07/18/19 22:21 Sodium Chloride Flush Syringe 10 Ml IV PRN PRN LINE FLUSH Nutrition/Malnutrition Assess - Dietary Evaluation Nutrition/Malnutrition Findings: Nutrition Notes Start: 07/19/19 11:18 Freq: Status: Active Protocol: Document 07/19/19 11:18 CT (Rec: 07/19/19 11:25 CT [id number]) Co-Sign 07/19/19 11:18 LP Nutrition Notes Need for Assessment generated from: MD Order,teletypewriter operator,MST, Education Initial or Follow up Assessment Current Diagnosis COPD,Hypertension,Heart Failure Other Pertinent Diagnosis SOB, obstructive sleep apnea, obesity Current Diet Cardiac/consistent CHO Labs/Tests Glu 113 Pertinent Medications Lasix Height 5 ft 5 in Weight 160.7 kg [place] Body Weight (kg) 61.81 BMI 58.9 Intake Prior to Admission Good Weight Status Morbidly Obese Subjective/Other Information Consult for diet education and MST score. Pt was unsure of UBW and stated a 5 lb wt loss in 1 week HOME HEALTH CARE PHYSICIAN. Pt stated that he was eating HOME HEALTH CARE PHYSICIAN and is eating now with a good appetite. Pt ate 100% of breakfast. Pt refused diet education and accepted the handout. Pt stated he had previous education on a heart healthy CHO counting diet. Burn Absent Trauma Absent GI Symptoms None Current % PO Good (75-100%) Minimum of two criteria No physical signs of malnutrition #1 Nutrition Diagnosis Food and nutrition-related knowledge deficit Etiology limited previous knowledge on cardiac/consistent CHO diet As Evidenced by Signs and Symptoms Pt refusal of education but acceptance of handout Is patient on ventilator? No Is Patient Ambulatory and/or Out of Bed Yes REE-([facility]-ambulatory/OOB) [ 3125.044 [id number]] Kcal/Kg value to use for calculation 12 Approximate Energy Requirements Using 1928 kcal/Kg Calculation Used for Recommendations Kcal/kg Additional Notes Protein needs: 88-111 g/kg/day (0.8-1 g/kg/day AdBW 111 kg) Fluid needs: 1 ml/kcal/day Nutrition Intervention Change Diet Order: Continue current Teaching Recipient Patient Learning Readiness Poor Teaching Methods Demonstration,Handout Response to Teaching Reinforcement needed,Refuses to learn Education Handouts Provided Heart Healthy CHO counting Barriers to Learning Motivation RD phone number provided Yes Patient aware of follow up options Yes Anticipated Discharge Needs: Cardiac/consistent CHO Revisit per MD consult or patient Sign Off request:
[2019-07-19] MEDS ORDERED: oxyCODONE /ACETAMINOPHEN 5-325MG TAB PO PRN (19:28)
[2019-07-19] MEDS ORDERED: ALBUTEROL 8.5 GM INHALATION IH PRN (19:28)
[2019-07-19] MEDS ORDERED: ALBUTEROL 2.5 MG/3 ML NEBU IH PRN (19:36)
[2019-07-19] MEDS ORDERED: NON-FORMULARY EACH (Trazodone 50 MG) PO SCH (22:00)
[2019-07-19] MEDS: traZODone 50 MG TAB PO SCH (22:45)
[2019-07-19] MEDS: AMIODARONE 200 MG TAB PO SCH (22:45)
[2019-07-19] MEDS: APIXABAN 5 MG TAB PO SCH (22:45)
[2019-07-20] MEDS: MORPHINE 2 MG/1 ML INJ IV PRN ×3 (02:37→10:30)
[2019-07-20] MEDS: FUROSEMIDE 40 MG/4 ML INJ IV SCH ×2 (06:20→17:45)
[2019-07-20] MEDS: HEPARIN 5,000 UNIT/1 ML VIAL SUB-Q SCH (06:20)
[2019-07-20] MEDS: AMIODARONE 200 MG TAB PO SCH ×2 (10:26→21:10)
[2019-07-20] MEDS: APIXABAN 5 MG TAB PO SCH ×2 (10:26→21:11)
--- NOTE | 2019-07-20 11:35 | Progress Note ---
Assessment and Plan Assessment and plan: --Acute on chronic respiratory failure; Multifactorial , secondary toobesity hypoventilation syndrome, obstructive sleep apnea, pulmonary hypertension Cardiology pulmonary following, optimize medications --Obesity hypoventilation/obstructive sleep apnea: continue oxygen CPAP nebulizers supportive care pulmonary consult --Severe pulmonary hypertension: continue current management, pulmonary consult, --Acute on chronic diastolic congestive heart failure Current Visit: Yes Status: Acute Diuretics input output monitoring , cardiology following Echo ejection fraction 50%, pulmonary hypertension -- Hypertension Current Visit: No Status: Acute Blood pressure stable. Continue current antihypertensives -- Morbid obesity with BMI 59, adult Current Visit: No Status: Acute We will request dietary consult prior to discharge. Patient needs outpatient evaluation for bariatric weight reduction program When medically stable -- DVT prophylaxis Current Visit: Yes Status: Acute Patient placed on subcutaneous heparin. --Full code status Current Visit: Yes Status: Acute --noncompliance with CPAP strongly advised to comply with medications diet exercise follow-up visits and CPAP Cardiology and pulmonary evaluation and recommendations noted and appreciated Closely monitor and optimize medications Plan of care reviewed with the patient and his nurse Disposition; discharge home when medically stable History Interval history: Patient seen and examined this morning medical records reviewed Patient is sitting up in the bed complains of severe orthopnea Noncompliant with CPAP, complains of generalized body pains and weakness and fatigue Patient is in mild distress tachypneic tachycardic Vital signs reviewed Hospitalist Physical - Constitutional Vitals: Temp Pulse Resp BP Pulse Ox 98.2 F 81 18 131/62 98 07/20/19 03:47 07/20/19 06:32 07/20/19 08:00 07/20/19 06:32 07/20/19 08:00 General appearance: Present: mild distress (Due to shortness of breath), obese (Morbidly obese) - EENT Eyes: Present: PERRL, EOM intact - Neck Neck: Present: supple, normal ROM - Respiratory Respiratory effort: labored Respiratory: bilateral: diminished, wheezing, negative: rales, rhonchi - Cardiovascular Rhythm: regular Heart Sounds: Present: S1 & S2 - Extremities Extremities: no ischemia, No edema - Abdominal General gastrointestinal: soft, non-tender, non-distended, normal bowel sounds - Integumentary Integumentary: Present: clear, warm - Psychiatric Psychiatric: appropriate mood/affect, cooperative - Neurologic Neurologic: CNII-XII intact, moves all extremities Results - Labs CBC & Chem 7: 07/19/19 04:27 07/19/19 04:27 Labs: Laboratory Last Values WBC 7.4 K/mm3 (4.5-11.0) 07/19/19 04:27 RBC 5.47 M/mm3 (3.65-5.03) H 07/19/19 04:27 Hgb 15.0 gm/dl (11.8-15.2) 07/19/19 04:27 Hct 46.9 % (35.5-45.6) H 07/19/19 04:27 MCV 86 fl (84-94) 07/19/19 04:27 MCH 27 pg (28-32) L 07/19/19 04:27 MCHC 32 % (32-34) 07/19/19 04:27 RDW 15.3 % (13.2-15.2) H 07/19/19 04:27 Plt Count 202 K/mm3 (140-440) 07/19/19 04:27 Lymph % (Auto) 29.0 % (13.4-35.0) 07/19/19 04:27 [place] % (Auto) 5.8 % (0.0-7.3) 07/19/19 04:27 Eos % (Auto) 0.5 % (0.0-4.3) 07/19/19 04:27 Baso % (Auto) 0.4 % (0.0-1.8) 07/19/19 04:27 Lymph # 2.2 K/mm3 (1.2-5.4) 07/19/19 04:27 [place] # 0.4 K/mm3 (0.0-0.8) 07/19/19 04:27 Eos # 0.0 K/mm3 (0.0-0.4) 07/19/19 04:27 Baso # 0.0 K/mm3 (0.0-0.1) 07/19/19 04:27 Seg Neutrophils % 64.3 % (40.0-70.0) 07/19/19 04:27 Seg Neutrophils # 4.8 K/mm3 (1.8-7.7) 07/19/19 04:27 PT 12.8 Sec. (12.2-14.9) 07/19/19 04:27 INR 0.97 (0.87-1.13) 07/19/19 04:27 APTT 29.9 Sec. (24.2-36.6) 07/19/19 04:27 Sodium 143 mmol/L (137-145) 07/19/19 04:27 Potassium 4.0 mmol/L (3.6-5.0) 07/19/19 04:27 Chloride 103.3 mmol/L (98-107) 07/19/19 04:27 Carbon Dioxide 28 mmol/L (22-30) 07/19/19 04:27 Anion Gap 16 mmol/L 07/19/19 04:27 BUN 17 mg/dL (9-20) 07/19/19 04:27 Creatinine 1.1 mg/dL (0.8-1.5) 07/19/19 04:27 Estimated GFR > 60 ml/min 07/19/19 04:27 BUN/Creatinine Ratio 15 % 07/19/19 04:27 Glucose 113 mg/dL (75-100) H 07/19/19 04:27 Calcium 9.0 mg/dL (8.4-10.2) 07/19/19 04:27 Total Bilirubin < 0.20 mg/dL (0.1-1.2) 07/18/19 18:35 Direct Bilirubin < 0.2 mg/dL (0-0.2) 07/18/19 18:35 Indirect Bilirubin 0.0 mg/dL 07/18/19 18:35 AST 30 units/L (5-40) 07/18/19 18:35 ALT 38 units/L (7-56) 07/18/19 18:35 Alkaline Phosphatase 102 units/L (35-129) 07/18/19 18:35 Troponin T < 0.010 ng/mL (0.00-0.029) 07/18/19 18:35 NT-Pro-B Natriuret Pep 46.43 pg/mL (0-450) 07/18/19 18:35 Total Protein 7.9 g/dL (6.3-8.2) 07/18/19 18:35 Albumin 4.1 g/dL (3.9-5) 07/18/19 18:35 Albumin/Globulin Ratio 1.1 % 07/18/19 18:35 Active Medications - Current Medications Current Medications: Generic Name Dose Route Start Last Admin Trade Name Freq PRN Reason Stop Dose Admin Acetaminophen 650 mg 07/18/19 22:21 Tylenol PO Q4H PRN Pain MILD(1-3)/Fever >100.5/NICOLE Albuterol 2.5 mg 07/19/19 19:36 Proventil IH Q6HRT PRN Shortness Of Breath Amiodarone HCl 200 mg 07/19/19 22:00 07/20/19 10:26 Cordarone PO 200 mg BID MEGAN Administration Apixaban 5 mg 07/19/19 22:00 07/20/19 10:26 Eliquis PO 5 mg Q12HR MEGAN Administration Protocol Diltiazem HCl 90 mg 07/19/19 22:00 07/20/19 06:32 Cardizem PO 90 mg Q8HR MEGAN Administration Furosemide 40 mg 07/19/19 06:00 07/20/19 06:20 Lasix IV 40 mg BID@0600,1800 MEGAN Administration Magnesium Hydroxide 30 ml 07/18/19 22:21 Milk Of Magnesia PO Q4H PRN Constipation Morphine Sulfate 2 mg 07/18/19 22:21 07/20/19 10:30 Morphine IV 2 mg Q4H PRN Administration Pain, Moderate (4-6) Morphine Sulfate 2 mg 07/18/19 22:21 Morphine IV Q5MIN PRN Chest Pain unrelieved by NTG Nitroglycerin 0.4 mg 07/18/19 22:21 Nitrostat SL .Q5MIN PRN Chest Pain Ondansetron HCl 4 mg 07/18/19 22:21 Zofran IV Q8H PRN Nausea And Vomiting Oxycodone/Acetaminophen 1 tab 07/19/19 19:28 Percocet 5/325 PO Q8H PRN Pain, Moderate (4-6) Sodium Chloride 10 ml 07/19/19 10:00 07/20/19 10:26 Sodium Chloride Flush Syringe 10 Ml IV 10 ml BID MEGAN Administration Sodium Chloride 10 ml 07/18/19 22:21 Sodium Chloride Flush Syringe 10 Ml IV PRN PRN LINE FLUSH Trazodone HCl 50 mg 07/19/19 22:00 07/19/19 22:45 Desyrel PO 50 mg QHS MEGAN Administration Nutrition/Malnutrition Assess - Dietary Evaluation Nutrition/Malnutrition Findings: Nutrition Notes Start: 07/19/19 11:18 Freq: Status: Active Protocol: Document 07/19/19 11:18 CT (Rec: 07/19/19 11:25 CT [id number]) Co-Sign 07/19/19 11:18 LP Nutrition Notes Need for Assessment generated from: MD Order,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 Pt ate 100% of breakfast. Pt refused diet education and accepted the handout. Pt stated he had previous education on a heart healthy CHO counting diet. Burn Absent Trauma Absent GI Symptoms None Current % PO Good (75-100%) Minimum of two criteria No physical signs of malnutrition #1 Nutrition Diagnosis Food and nutrition-related knowledge deficit Etiology limited previous knowledge on cardiac/consistent CHO diet As Evidenced by Signs and Symptoms Pt refusal of education but acceptance of handout Is patient on ventilator? No Is Patient Ambulatory and/or Out of Bed Yes REE-([facility]-ambulatory/OOB) [ 3125.044 NUTR.MSJOOB] Kcal/Kg value to use for calculation 12 Approximate Energy Requirements Using 1928 kcal/Kg Calculation Used for Recommendations Kcal/kg Additional Notes Protein needs: 88-111 g/kg/day (0.8-1 g/kg/day AdBW 111 kg) Fluid needs: 1 ml/kcal/day Nutrition Intervention Change Diet Order: Continue current Teaching Recipient Patient Learning Readiness Poor Teaching Methods Demonstration,Handout Response to Teaching Reinforcement needed,Refuses to learn Education Handouts Provided Heart Healthy CHO counting Barriers to Learning Motivation RD phone number provided Yes Patient aware of follow up options Yes Anticipated Discharge Needs: Cardiac/consistent CHO Revisit per MD consult or patient Sign Off request:
--- NOTE | 2019-07-20 12:08 | Progress Note ---
Assessment and Plan Shortness of breath, multifactorial Heart failure with preserved ejection fraction Pulmonary hypertension -pulmonary artery systolic pressure of 60 by [facility] 12/2018 Obstructive sleep apnea, non compliant with Cpap Morbid obesity COPD Nicotine dependent Paroxysmal Afib on Eliquis for oral anticoagulation as an outpatient on Diltiazem as an outpatient for suppression Hypertension Subjective Date of service: 07/20/19 Interval history: Patient is resting comfortably in bed. He has no complaints. Objective Vital Signs Temp Pulse Resp BP Pulse Ox 07/20/19 10:00 95 07/20/19 08:00 18 98 07/20/19 06:32 81 131/62 07/20/19 04:49 95 07/20/19 03:47 98.2 F 81 18 131/62 89 07/20/19 02:37 18 07/20/19 00:08 98.3 F 80 18 153/96 98 07/19/19 23:03 95 H 151/83 07/19/19 21:39 18 07/19/19 20:51 91 H 07/19/19 19:44 98.2 F 18 159/83 07/19/19 16:40 98.5 F 77 18 144/88 98 - Physical Examination General: No Apparent Distress HEENT: Positive: PERRL Neck: Positive: trachea midline Cardiac: Positive: Reg Rate and Rhythm Lungs: Positive: Decreased Breath Sounds Neuro: Positive: Grossly Intact Extremities: Absent: edema
--- NOTE | 2019-07-20 13:28 | Consultation ---
History of Present Illness Consult date: 07/20/19 Requesting physician: JAELYN HAAS Reason for consult: obstructive sleep apnea, other (DOM/OHS; Pulmonary HTN) History of present illness: PULMONARY/CCM CONSULT NOTE (Full dictation # [id number]) Please see dictated notes for full details Past History Past Medical History: COPD, other (Obstructive sleep apnea, obesity) Past Surgical History: tonsillectomy, Other (Hemorrhoidectomy.) Family history: hypertension, stroke Medications and Allergies Allergies Allergy/AdvReac Type Severity Reaction Status Date / Time aspirin Allergy Hives Verified 07/03/18 22:11 ibuprofen [From Motrin] Allergy Hives Verified 07/03/18 22:11 prochlorperazine Allergy Hives Verified 07/03/18 22:12 [From Compazine] Home Medications Medication Instructions Recorded Confirmed Last Taken Type ALBUTEROL Inhaler (OR & NICU) 2 puff IH QID PRN #1 inhalation 12/28/18 07/18/19 Unknown Rx [ProAir HFA Inhaler] Amiodarone [Cordarone 200 MG TAB] 200 mg PO BID #60 tablet 12/28/18 07/18/19 Unknown Rx Apixaban [Eliquis] 5 mg PO Q12HR #60 tablet 12/28/18 07/18/19 Unknown Rx dilTIAZem [Cardizem] 90 mg PO Q8HR #90 tablet 12/28/18 07/18/19 Unknown Rx oxyCODONE /ACETAMINOPHEN [Percocet 1 tab PO Q8H PRN #15 tablet 12/28/18 07/18/19 Unknown Rx 5/325 mg] Lasix TAB 25 mg PO DAILY 07/18/19 07/18/19 Unknown History traZODone 50 mg PO HS 07/18/19 07/18/19 Unknown History Active Meds: Active Medications Acetaminophen (Tylenol) 650 mg PO Q4H PRN PRN Reason: Pain MILD(1-3)/Fever >100.5/NICOLE Albuterol (Proventil) 2.5 mg IH Q6HRT PRN PRN Reason: Shortness Of Breath Amiodarone HCl (Cordarone) 200 mg PO BID [facility] Last Admin: 07/20/19 10:26 Dose: 200 mg Documented by: Apixaban (Eliquis) 5 mg PO Q12HR MEGAN; Protocol Last Admin: 07/20/19 10:26 Dose: 5 mg Documented by: Diltiazem HCl (Cardizem) 90 mg PO Q8HR [facility] Last Admin: 07/20/19 06:32 Dose: 90 mg Documented by: Furosemide (Lasix) 40 mg IV BID@0600,1800 [facility] Last Admin: 07/20/19 06:20 Dose: 40 mg Documented by: Magnesium Hydroxide (Milk Of Magnesia) 30 ml PO Q4H PRN PRN Reason: Constipation Morphine Sulfate (Morphine) 2 mg IV Q4H PRN PRN Reason: Pain, Moderate (4-6) Last Admin: 07/20/19 10:30 Dose: 2 mg Documented by: Morphine Sulfate (Morphine) 2 mg IV Q5MIN PRN PRN Reason: Chest Pain unrelieved by NTG Nitroglycerin (Nitrostat) 0.4 mg SL .Q5MIN PRN PRN Reason: Chest Pain Ondansetron HCl (Zofran) 4 mg IV Q8H PRN PRN Reason: Nausea And Vomiting Oxycodone/Acetaminophen (Percocet 5/325) 1 tab PO Q8H PRN PRN Reason: Pain, Moderate (4-6) Sodium Chloride (Sodium Chloride Flush Syringe 10 Ml) 10 ml IV BID [facility] Last Admin: 07/20/19 10:26 Dose: 10 ml Documented by: Sodium Chloride (Sodium Chloride Flush Syringe 10 Ml) 10 ml IV PRN PRN PRN Reason: LINE FLUSH Trazodone HCl (Desyrel) 50 mg PO QHS [facility] Last Admin: 07/19/19 22:45 Dose: 50 mg Documented by: Physical Examination Vital signs: Vital Signs Temp Pulse Resp BP Pulse Ox 97.9 F 95 H 20 191/114 96 07/18/19 17:28 07/18/19 17:28 07/18/19 17:28 07/18/19 17:28 07/18/19 17:28 Results - Laboratory Findings CBC and BMP: 07/19/19 04:27 07/19/19 04:27 PT/INR, D-dimer PT 12.8 Sec. (12.2-14.9) 07/19/19 04:27 INR 0.97 (0.87-1.13) 07/19/19 04:27 Abnormal lab findings: Abnormal Labs 12/05/2707/19/19 07/19/19 18:35 04:27 04:27 RBC 5.44 H 5.47 H Hct 46.1 H 46.9 H MCH 27 L RDW 15.3 H Glucose 113 H
[2019-07-20] MEDS: HYDROmorphone 1 MG/1 ML INJ IM PRN ×2 (15:01→21:11)
[2019-07-20] MEDS: traZODone 50 MG TAB PO SCH (21:10)
[2019-07-21] MEDS: HYDROmorphone 1 MG/1 ML INJ IM PRN ×4 (03:22→23:11)
[2019-07-21] MEDS: FUROSEMIDE 40 MG/4 ML INJ IV SCH ×2 (06:36→17:12)
[2019-07-21] MEDS: AMIODARONE 200 MG TAB PO SCH ×2 (09:59→21:55)
[2019-07-21] MEDS: APIXABAN 5 MG TAB PO SCH ×2 (09:59→21:55)
--- NOTE | 2019-07-21 10:41 | Progress Note ---
Assessment and Plan Shortness of breath, multifactorial Heart failure with preserved ejection fraction Pulmonary hypertension -pulmonary artery systolic pressure of 60 by [facility] 12/2018 Obstructive sleep apnea, non compliant with Cpap Morbid obesity COPD Nicotine dependent Paroxysmal Afib on Eliquis for oral anticoagulation as an outpatient on Diltiazem as an outpatient for suppression Hypertension R/[facility] 12/2018 demonstrated normal coronary arteries and normal left ventricular systolic function, but we did find mild-moderate aortic stenosis with a mean transaortic gradient of 22 and valve area of 1.65. The pulmonary artery systolic pressure was elevated at 60, consistent with his chronic lung disease. An echocardiogram this admission reports left ventricular systolic ejection fraction of 60%. The aortic valve evaluation most rates a mean gradient of 25, and a valve area of 1.35 not significantly changed from 6 months ago. Recommendations: Continue IV diuretics for heart failure with a preserved ejection fraction Conservative management for mild to moderate aortic stenosis. Subjective Date of service: 07/21/19 Interval history: Patient reports shortness of breath with minimal exertion. No distress noted. No events reported on telemetry. Objective Vital Signs Temp Pulse Resp BP Pulse Ox 07/21/19 08:31 98.1 F 18 149/88 07/21/19 04:21 97.7 F 85 18 165/102 91 07/21/19 00:20 98 07/21/19 00:14 98.0 F 85 20 139/97 100 07/20/19 23:15 96 07/20/19 21:11 102 H 22 07/20/19 20:52 20 95 07/20/19 20:48 102 H 07/20/19 19:43 98.0 F 102 H 18 148/83 95 07/20/19 15:00 93 H 142/76 - Physical Examination General: No Apparent Distress HEENT: Positive: PERRL Neck: Positive: trachea midline Cardiac: Positive: Reg Rate and Rhythm Lungs: Positive: Decreased Breath Sounds Neuro: Positive: Grossly Intact Extremities: Absent: edema
--- NOTE | 2019-07-21 12:44 | Progress Note ---
Assessment and Plan Assessment and plan: --Acute on chronic respiratory failure; Multifactorial , secondary toobesity hypoventilation syndrome, obstructive sleep apnea, pulmonary hypertension Cardiology pulmonary following, optimize medications --Obesity hypoventilation/obstructive sleep apnea: continue oxygen CPAP nebulizers supportive care pulmonary consult --Severe pulmonary hypertension: continue current management, pulmonary consult, --Acute on chronic diastolic congestive heart failure Current Visit: Yes Status: Acute Diuretics input output monitoring , cardiology following Echo ejection fraction 50%, pulmonary hypertension -- Hypertension Current Visit: No Status: Acute Blood pressure stable. Continue current antihypertensives -- Morbid obesity with BMI 59, adult Current Visit: No Status: Acute We will request dietary consult prior to discharge. Patient needs outpatient evaluation for bariatric weight reduction program When medically stable -- DVT prophylaxis Current Visit: Yes Status: Acute Patient placed on subcutaneous heparin. --Full code status Current Visit: Yes Status: Acute --noncompliance with CPAP strongly advised to comply with medications diet exercise follow-up visits and CPAP Cardiology and pulmonary evaluation and recommendations noted and appreciated Closely monitor and optimize medications Plan of care reviewed with the patient and his nurse Disposition; discharge home when medically stable History Interval history: Patient seen and examined medical records reviewed Patient feels slightly better Continues to have shortness of breath Patient is refusing CPAP Vital signs noted Hospitalist Physical - Constitutional Vitals: Temp Pulse Resp BP Pulse Ox 98.1 F 85 18 149/88 96 07/21/19 08:31 07/21/19 04:21 07/21/19 08:31 07/21/19 08:31 07/21/19 08:00 General appearance: Present: mild distress (Due to shortness of breath), obese (Morbidly obese) - EENT Eyes: Present: PERRL, EOM intact - Neck Neck: Present: supple, normal ROM - Respiratory Respiratory effort: labored Respiratory: bilateral: diminished, rhonchi, negative: rales, wheezing - Cardiovascular Rhythm: regular Heart Sounds: Present: S1 & S2 - Extremities Extremities: no ischemia, No edema - Abdominal General gastrointestinal: soft, non-tender, non-distended, normal bowel sounds - Integumentary Integumentary: Present: clear, warm - Psychiatric Psychiatric: appropriate mood/affect, cooperative - Neurologic Neurologic: CNII-XII intact, moves all extremities Results - Labs CBC & Chem 7: 07/19/19 04:27 07/19/19 04:27 Labs: Laboratory Last Values WBC 7.4 K/mm3 (4.5-11.0) 07/19/19 04:27 RBC 5.47 M/mm3 (3.65-5.03) H 07/19/19 04:27 Hgb 15.0 gm/dl (11.8-15.2) 07/19/19 04:27 Hct 46.9 % (35.5-45.6) H 07/19/19 04:27 MCV 86 fl (84-94) 07/19/19 04:27 MCH 27 pg (28-32) L 07/19/19 04:27 MCHC 32 % (32-34) 07/19/19 04:27 RDW 15.3 % (13.2-15.2) H 07/19/19 04:27 Plt Count 202 K/mm3 (140-440) 07/19/19 04:27 Lymph % (Auto) 29.0 % (13.4-35.0) 07/19/19 04:27 [place] % (Auto) 5.8 % (0.0-7.3) 07/19/19 04:27 Eos % (Auto) 0.5 % (0.0-4.3) 07/19/19 04:27 Baso % (Auto) 0.4 % (0.0-1.8) 07/19/19 04:27 Lymph # 2.2 K/mm3 (1.2-5.4) 07/19/19 04:27 [place] # 0.4 K/mm3 (0.0-0.8) 07/19/19 04:27 Eos # 0.0 K/mm3 (0.0-0.4) 07/19/19 04:27 Baso # 0.0 K/mm3 (0.0-0.1) 07/19/19 04:27 Seg Neutrophils % 64.3 % (40.0-70.0) 07/19/19 04:27 Seg Neutrophils # 4.8 K/mm3 (1.8-7.7) 07/19/19 04:27 PT 12.8 Sec. (12.2-14.9) 07/19/19 04:27 INR 0.97 (0.87-1.13) 07/19/19 04:27 APTT 29.9 Sec. (24.2-36.6) 07/19/19 04:27 Sodium 143 mmol/L (137-145) 07/19/19 04:27 Potassium 4.0 mmol/L (3.6-5.0) 07/19/19 04:27 Chloride 103.3 mmol/L (98-107) 07/19/19 04:27 Carbon Dioxide 28 mmol/L (22-30) 07/19/19 04:27 Anion Gap 16 mmol/L 07/19/19 04:27 BUN 17 mg/dL (9-20) 07/19/19 04:27 Creatinine 1.1 mg/dL (0.8-1.5) 07/19/19 04:27 Estimated GFR > 60 ml/min 07/19/19 04:27 BUN/Creatinine Ratio 15 % 07/19/19 04:27 Glucose 113 mg/dL (75-100) H 07/19/19 04:27 POC Glucose 73 (70-105) 07/20/19 20:55 Calcium 9.0 mg/dL (8.4-10.2) 07/19/19 04:27 Total Bilirubin < 0.20 mg/dL (0.1-1.2) 07/18/19 18:35 Direct Bilirubin < 0.2 mg/dL (0-0.2) 07/18/19 18:35 Indirect Bilirubin 0.0 mg/dL 07/18/19 18:35 AST 30 units/L (5-40) 07/18/19 18:35 ALT 38 units/L (7-56) 07/18/19 18:35 Alkaline Phosphatase 102 units/L (35-129) 07/18/19 18:35 Troponin T < 0.010 ng/mL (0.00-0.029) 07/18/19 18:35 NT-Pro-B Natriuret Pep 46.43 pg/mL (0-450) 07/18/19 18:35 Total Protein 7.9 g/dL (6.3-8.2) 07/18/19 18:35 Albumin 4.1 g/dL (3.9-5) 07/18/19 18:35 Albumin/Globulin Ratio 1.1 % 07/18/19 18:35 Active Medications - Current Medications Current Medications: Generic Name Dose Route Start Last Admin Trade Name Freq PRN Reason Stop Dose Admin Acetaminophen 650 mg 07/18/19 22:21 Tylenol PO Q4H PRN Pain MILD(1-3)/Fever >100.5/NICOLE Albuterol 2.5 mg 07/19/19 19:36 Proventil IH Q6HRT PRN Shortness Of Breath Amiodarone HCl 200 mg 07/19/19 22:00 07/21/19 09:59 Cordarone PO 200 mg BID MEGAN Administration Apixaban 5 mg 07/19/19 22:00 07/21/19 09:59 Eliquis PO 5 mg Q12HR MEGAN Administration Protocol Diltiazem HCl 90 mg 07/19/19 22:00 07/21/19 06:32 Cardizem PO 90 mg Q8HR MEGAN Administration Famotidine 20 mg 07/22/19 10:00 Pepcid PO QDAY MEGAN Furosemide 40 mg 07/19/19 06:00 07/21/19 06:36 Lasix IV 40 mg BID@0600,1800 [facility] Administration Hydromorphone HCl 1 mg 07/20/19 13:59 07/21/19 10:00 Dilaudid IM 1 mg Q6H PRN Administration Pain , Severe (7-10) Magnesium Hydroxide 30 ml 07/18/19 22:21 Milk Of Magnesia PO Q4H PRN Constipation Morphine Sulfate 2 mg 07/18/19 22:21 Morphine IV Q5MIN PRN Chest Pain unrelieved by NTG Nitroglycerin 0.4 mg 07/18/19 22:21 Nitrostat SL .Q5MIN PRN Chest Pain Ondansetron HCl 4 mg 07/18/19 22:21 Zofran IV Q8H PRN Nausea And Vomiting Oxycodone/Acetaminophen 1 tab 07/19/19 19:28 Percocet 5/325 PO Q8H PRN Pain, Moderate (4-6) Sodium Chloride 10 ml 07/19/19 10:00 07/21/19 09:59 Sodium Chloride Flush Syringe 10 Ml IV 10 ml BID MEGAN Administration Sodium Chloride 10 ml 07/18/19 22:21 Sodium Chloride Flush Syringe 10 Ml IV PRN PRN LINE FLUSH Trazodone HCl 50 mg 07/19/19 22:00 07/20/19 21:10 Desyrel PO 50 mg QHS MEGAN Administration Nutrition/Malnutrition Assess - Dietary Evaluation Nutrition/Malnutrition Findings: Nutrition Notes Start: 07/19/19 11:18 Freq: Status: Active Protocol: Document 07/19/19 11:18 CT (Rec: 07/19/19 11:25 CT [id number]) Co-Sign 07/19/19 11:18 LP Nutrition Notes Need for Assessment generated from: MD Order,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 Pt ate 100% of breakfast. Pt refused diet education and accepted the handout. Pt stated he had previous education on a heart healthy CHO counting diet. Burn Absent Trauma Absent GI Symptoms None Current % PO Good (75-100%) Minimum of two criteria No physical signs of malnutrition #1 Nutrition Diagnosis Food and nutrition-related knowledge deficit Etiology limited previous knowledge on cardiac/consistent CHO diet As Evidenced by Signs and Symptoms Pt refusal of education but acceptance of handout Is patient on ventilator? No Is Patient Ambulatory and/or Out of Bed Yes REE-([facility]-ambulatory/OOB) [ 3125.044 NUTR.MSJOOB] Kcal/Kg value to use for calculation 12 Approximate Energy Requirements Using 1928 kcal/Kg Calculation Used for Recommendations Kcal/kg Additional Notes Protein needs: 88-111 g/kg/day (0.8-1 g/kg/day AdBW 111 kg) Fluid needs: 1 ml/kcal/day Nutrition Intervention Change Diet Order: Continue current Teaching Recipient Patient Learning Readiness Poor Teaching Methods Demonstration,Handout Response to Teaching Reinforcement needed,Refuses to learn Education Handouts Provided Heart Healthy CHO counting Barriers to Learning Motivation RD phone number provided Yes Patient aware of follow up options Yes Anticipated Discharge Needs: Cardiac/consistent CHO Revisit per MD consult or patient Sign Off request:
--- NOTE | 2019-07-21 13:47 | Progress Note ---
Assessment and Plan Acute hypoxemic respiratory failure. Obstructive sleep apnea, poorly compliant. Morbid obesity. Acute chronic obstructive pulmonary disease exacerbation. Likely acute congestive heart failure exacerbation. History of atrial fibrillation. Hypertensive urgency. History of diabetes. Tobacco use disorder. Subjective Date of service: 07/21/19 Principal diagnosis: Ac hypoxemic resp failure; DOM; AE-COPD; Hypertensive urgency Interval history: Patient is seen today for: Ac hypoxemic resp failure; DOM; Morbid obesity; AE- COPD; Likely acute CHF exacerbation; Atrial fibrillation; Hypertensive urgency; DM II; Tobacco use disorder. Seen and examined at bedside; 24hour events reviewed; nursing and respiratory care staff consulted; no adverse overnight events reported to me; resting pe acefully in bed; Objective Vital Signs - 12hr 07/21/19 07/21/19 07/21/19 04:21 08:00 08:31 Temperature 97.7 F 98.1 F Pulse Rate 85 Respiratory 18 18 18 Rate Blood Pressure 165/102 149/88 O2 Sat by Pulse 91 96 Oximetry 07/21/19 10:00 Temperature Pulse Rate 82 Respiratory Rate Blood Pressure O2 Sat by Pulse Oximetry CBC and BMP: 07/19/19 04:27 07/19/19 04:27 ABG, PT/INR, D-dimer: PT/INR, D-dimer PT 12.8 Sec. (12.2-14.9) 07/19/19 04:27 INR 0.97 (0.87-1.13) 07/19/19 04:27 Abnormal lab findings: Abnormal Labs 07/18/19 07/19/19 07/19/19 18:35 04:27 04:27 RBC 5.44 H 5.47 H Hct 46.1 H 46.9 H MCH 27 L RDW 15.3 H Glucose 113 H
--- NOTE | 2019-07-21 19:49 | Consultation ---
PULMONARY CONSULTATION NOTE CONSULTING PHYSICIAN: Dr. Genet Robldeo. REASON FOR CONSULTATION: DOM/OHS and pulmonary hypertension. CHIEF COMPLAINT AND HISTORY OF PRESENT ILLNESS: As follows. The patient is a 49-year-old -[place] male, clinic patient, morbidly obese, history of obstructive sleep apnea, and admits to not being compliant with his BiPAP machine, which he has had for about a month now and came into the Emergency Room complaining of shortness of breath, dyspnea on exertion, worse in the preceding 3 days. He complained of chest pain. It was really chest tightness without any radiation. He complained of orthopnea. He complained again of increased dyspnea on exertion. Denied fevers, denied chills, denied any cough or expectoration, and denied hemoptysis. The patient is not sure, but he believes he does have a history of COPD. He has about a 10+ pack year tobacco smoking history and continues to smoke. He was evaluated in the Emergency Room and admitted with hypertensive urgency and a shortness of breath. We were asked to assist with management. When I stopped by to see him, he told me that he has had a near syncopal episode or may be a syncopal episode, I should say. He states that he fell down in his bathroom and bumped his head into the wall. He denies any other trauma. He said that he had complained of some head pain and neck pain, but denies any weakness, new onset focal weakness, paraesthesias, or significant confusion. He has not lost any weight since he stopped his sleep study since he had a sleep study done. He denies any new leg pain or swelling either unilaterally or bilaterally or any history of deep venous thrombosis. This really is not much of the history of presentation as I have. I should mention he denies any sick contacts. PAST MEDICAL HISTORY: Again, significant for hypertension, diabetes, morbid obesity, history of migraine headaches, history of COPD, history of obstructive sleep apnea, and history of chronic back pain. PAST SURGICAL HISTORY: Denies. MEDICATIONS: He was on at the time I stopped by to see him were reviewed. Pertinent medications included the following: Tylenol 650 mg p.o. q. 4 hours p.r.n. mild pain or fevers, albuterol treatments 2.5 mg inhaled q. 6 hours p.r.n. shortness of breath, amiodarone 200 mg p.o. b.i.d., Eliquis 5 mg p.o. q. 12 hours, diltiazem 90 mg p.o. q. 8 hours, Lasix 40 mg IV b.i.d., p.r.n. milk of magnesia, morphine sulfate 2 mg IV q. 4 hours p.r.n. moderate pain, nitroglycerin 0.4 mg sublingual q. 5 minutes p.r.n. chest pain, Zofran 4 mg IV q. 8 hours p.r.n. nausea and vomiting, Percocet 5/325 one tablet p.o. q. 8 hours p.r.n. moderate pain, and trazodone 50 mg p.o. at bedtime. ALLERGIES: Include ASPIRIN, IBUPROFEN, PROCHLORPERAZINE. Nature of this allergy is unknown. DIET: Morbidly obese. Denies the acute weight loss or gain in the preceding few weeks to months. FAMILY AND SOCIAL HISTORY: Lives in the community, has about a 11-hyrt-zaoa tobacco smoking history, and denies alcohol or illicit drug use or abuse. Family history, otherwise he denies. REVIEW OF SYSTEMS: He had the possible loss of consciousness. No new onset seizures. No new onset focal weakness. Denies gross hematochezia or melena. Denies polydipsia or polyuria. Denies heat or cold intolerance. Denies periods of unexplained sadness and/or elation as may be consistent with psychiatric type disorders. Denies any new onset joint pains or swellings. No new onset rash. Complete 13-system review of systems was obtained. Pertinent positives and/or negatives as in body of the history above, otherwise, noncontributory. PHYSICAL EXAMINATION: VITAL SIGNS: At presentation in the Emergency Room, he was afebrile, temperature 97.9 degrees Fahrenheit, pulse of 95, respiratory rate as high as 26, blood pressure 191/114, and O2 sats were 96%, inspired oxygen concentration at that time was not recorded. When I stopped by to see him, O2 sats were about 98%, that was on 2 liters nasal cannula. GENERAL: He is a middle-aged, morbidly obese -[place] male, normocephalic, really atraumatic, talking to me with full sentences, but with mildly increased work of breathing. HEAD, EYES, EARS, NOSE, AND THROAT: He was anicteric and no conjunctival erythema. Oropharynx was moist. Mallampati #3 oropharynx. No gross jugular venous distention. No thyromegaly. He has a large neck circumference. LUNGS: Auscultation of both lung kessler significant mainly for inspiratory right lower lobe crackles. No active wheezing, slightly prolonged expiratory phase. HEART: Sounds 1 and 2 are heard. They were regular in rate and rhythm at the time of my evaluation without overt rubs or murmurs. ABDOMEN: Soft, full, bowel sounds are positive, nontender, and no palpable hepatosplenomegaly. EXTREMITIES: Without overt digital clubbing or cyanosis. He had about 1+ bipedal pitting edema. Pedal pulses were 2+ bilaterally. No calf swelling or tenderness. NEUROLOGIC: Pupils are equal, round, about 4 mm, and reactive to light. Extraocular muscle movements were intact. Power was 5/5 bilaterally in all extremities. No costovertebral angle tenderness and really no point tenderness to palpation over the C-spine. SKIN: Normal turgor without overt cellulitis or rash. PSYCHIATRIC: Mood was normal. Affect was a little anxious. LABORATORY DATA: From my review are as follows: Admission white cell count 8900, hemoglobin 15.1, hematocrit 46.1, and platelet counts 209. INR of 0.97. Serum sodium 144, potassium 4.1, chloride 103, bicarbonate 25, BUN 17, creatinine 1.1, and glucose was 86. Liver function tests otherwise essentially within normal limits. No cultures for my review and no blood cultures. Chest x-ray was done as was a 2D echocardiogram. 2D echo result is pending. Chest x-ray reveals gross cardiomegaly, increased interstitial markings with a hilar/basilar distribution, perhaps a small left pleural effusion, certainly consistent with a mild interstitial edema, no gross pneumothorax, no gross bony fracture. An echocardiogram was done, result is pending. ASSESSMENT: 1. Acute hypoxemic respiratory failure. 2. Obstructive sleep apnea, poorly compliant. 3. Morbid obesity. 4. Acute chronic obstructive pulmonary disease exacerbation. 5. Likely acute congestive heart failure exacerbation. 6. History of atrial fibrillation. 7. Hypertensive urgency. 8. History of diabetes. 9. Tobacco use disorder. PLAN: I will wait on the 2D echocardiogram. His near syncopal episodes may be related in some way to pulmonary hypertension, although the clinic physical exam is not necessarily consistent with the isolated pulmonary hypertension or right ventricular failure. I do feel like CHF may be at play here, either a systolic or diastolic congestive heart failure. I have strongly, strongly counseled better compliance. I have explained the pathophysiology of obstructive sleep apnea and explained to him that the machine is usually not comfortable initially, but people very soon land to tolerate them. I explained the importance of treating his obstructive sleep apnea, especially in relation to his comorbidities. Oxygen will be weaned to keep sats greater than or equal to about 90%. I will hold on the systemic steroids. I think this is mainly a cardiac presentation. We will continue short-acting bronchodilators. Pulmonary hygiene will be per the respiratory therapies. No acute indication for anti-infectives. He is already on the Eliquis and I will not be pursuing a venous thromboembolic disorder workup. I will add gastrointestinal prophylaxis, especially in this gentleman on a positive pressure ventilation at home and on a full anticoagulation. DVT prophylaxis is covered by the Eliquis. Flu and pneumonia vaccination will be addressed per protocol. I have counseled him for well over about 5-10 minutes really during my whole interview, explaining the adverse effects of tobacco in relation to his comorbidities. I have counseled him and encouraged him to abstain and I have afforded him chemical methods to assist with a tobacco cessation. Those will also be discussed in clinic followup. Thank you very much for the consult. Dr. Robledo will follow along. We will make further recommendations as picture progresses/becomes clearer. We await the 2D echo read, but comorbidities will need to be optimized by returning ____ the therapy of comorbidities. JOB# [id number] EVA/ROSA ALVAREZ
[2019-07-21] MEDS: traZODone 50 MG TAB PO SCH (21:55)
[2019-07-22] MEDS: HYDROmorphone 1 MG/1 ML INJ IM PRN ×3 (05:29→17:30)
[2019-07-22] MEDS: FUROSEMIDE 40 MG/4 ML INJ IV SCH ×2 (05:29→18:27)
[2019-07-22] MEDS: FAMOTIDINE 20 MG TAB PO SCH (09:09)
[2019-07-22] MEDS: AMIODARONE 200 MG TAB PO SCH ×2 (09:09→22:01)
[2019-07-22] MEDS: APIXABAN 5 MG TAB PO SCH ×2 (09:09→22:01)
--- NOTE | 2019-07-22 09:23 | Progress Note ---
Assessment and Plan 1. Non-rheumatic aortic valve stenosis mild to moderate 2. Severe pulmonary hypertension 3. Obstructive sleep apnea 4. Morbid obesity 5. Paroxysmal atrial fibrillation 6. Essential hypertension Plan. Cardiac-ho stable continue present medication to follow-up in the office post discharge. Subjective Date of service: 07/22/19 Interval history: No cardiac symptoms. Objective Vital Signs Temp Pulse Resp BP Pulse Ox 07/22/19 08:05 97.8 F 90 18 144/74 99 07/22/19 05:29 90 155/85 07/22/19 04:32 98.2 F 90 18 155/85 98 07/22/19 03:00 89 22 97 07/22/19 00:08 98.3 F 91 H 18 147/80 92 07/21/19 22:33 97 07/21/19 21:55 84 07/21/19 21:39 84 07/21/19 19:28 97.9 F 99 H 18 156/88 97 07/21/19 17:30 84 182/107 07/21/19 17:05 89 182/107 96 07/21/19 15:03 18 115/52 07/21/19 14:00 90 115/52 07/21/19 10:00 82 96 - Physical Examination General: No Apparent Distress HEENT: Positive: PERRL Neck: Positive: trachea midline Cardiac: Positive: Reg Rate and Rhythm, Regular Rate, S1/S2, S4, Systolic Murmur , PMI, Dilated, Laterally Displaced Lungs: Positive: Normal Exam, clear to auscultation Neuro: Positive: Grossly Intact Abdomen: Positive: Unremarkable, Soft, Active Bowel Sounds Extremities: Absent: edema
--- NOTE | 2019-07-22 11:27 | Progress Note ---
Assessment and Plan Acute on chronic respiratory failure; Severe pulmonary hypertension: Obesity hypoventilation/obstructive sleep apnea: Extreme obesity with BMI 59, adult Acute on chronic diastolic congestive heart failure Hypertension Subjective Date of service: 07/22/19 Interval history: Patient is seen today for: Seen and examined at bedside; 24hour events reviewed; nursing and respiratory care staff consulted; no adverse overnight events reported to me; Objective Vital Signs - 12hr 07/22/19 07/22/19 07/22/19 00:08 03:00 04:32 Temperature 98.3 F 98.2 F Pulse Rate 91 H 89 90 Respiratory 18 22 18 Rate Blood Pressure 147/80 155/85 O2 Sat by Pulse 92 97 98 Oximetry 07/22/19 07/22/19 05:29 08:05 Temperature 97.8 F Pulse Rate 90 90 Respiratory 18 Rate Blood Pressure 155/85 144/74 O2 Sat by Pulse 99 Oximetry CBC and BMP: 07/19/19 04:27 07/19/19 04:27 ABG, PT/INR, D-dimer: ABG POC ABG pH 7.417 (7.35-7.45) 07/21/19 14:50 POC ABG pCO2 51.5 (35-45) H 07/21/19 14:50 POC ABG pO2 76 (80-105) L 07/21/19 14:50 POC ABG HCO3 33.2 (22-26 mml/L) 07/21/19 14:50 POC ABG Total CO2 35 (23-27mmol/L) 07/21/19 14:50 POC ABG O2 Sat 95 07/21/19 14:50 PT/INR, D-dimer PT 12.8 Sec. (12.2-14.9) 07/19/19 04:27 INR 0.97 (0.87-1.13) 07/19/19 04:27 Abnormal lab findings: Abnormal Labs 07/18/19 07/19/19 07/19/19 18:35 04:27 04:27 RBC 5.44 H 5.47 H Hct 46.1 H 46.9 H MCH 27 L RDW 15.3 H POC ABG pCO2 POC ABG pO2 Glucose 113 H 07/21/19 14:50 RBC Hct MCH RDW POC ABG pCO2 51.5 H POC ABG pO2 76 L Glucose
--- NOTE | 2019-07-22 13:02 | Progress Note ---
Assessment and Plan Assessment and plan: --Acute on chronic diastolic congestive heart failure Current Visit: Yes Status: Acute Continue heart failure medications Low-sodium diet fluid restriction Echo ejection fraction 50%, pulmonary hypertension Symptoms significantly improved, cardiology following --Acute on chronic respiratory failure; Multifactorial , secondary toobesity hypoventilation syndrome, obstructive sleep apnea, pulmonary hypertension Cardiology pulmonary following, optimize medications --Obesity hypoventilation/obstructive sleep apnea: continue oxygen CPAP nebulizers supportive care pulmonary consult --Severe pulmonary hypertension: continue current management, pulmonary consult, -- Hypertension Current Visit: No Status: Acute Blood pressure stable. Continue current antihypertensives -- Morbid obesity with BMI 59, adult Current Visit: No Status: Acute We will request dietary consult prior to discharge. Patient needs outpatient evaluation for bariatric weight reduction program When medically stable -- DVT prophylaxis Current Visit: Yes Status: Acute Patient placed on subcutaneous heparin. --Full code status Current Visit: Yes Status: Acute --noncompliance with CPAP strongly advised to comply with medications diet exercise follow-up visits and CPAP Discussed with pulmonary, okay to discharge tomorrow if stable Follow cardiology recommendations Possible discharge home tomorrow if stable History Interval history: Patient feels slightly better today Still complains of mild shortness of breath Alert awake oriented Vital signs stable Hospitalist Physical - Constitutional Vitals: Temp Pulse Resp BP Pulse Ox 97.8 F 90 18 144/74 99 07/22/19 08:05 07/22/19 08:05 07/22/19 08:05 07/22/19 08:05 07/22/19 08:05 General appearance: Present: no acute distress, well-nourished, obese (Morbidly obese) - EENT Eyes: Present: PERRL, EOM intact - Neck Neck: Present: supple, normal ROM - Respiratory Respiratory effort: normal Respiratory: bilateral: diminished, rhonchi, negative: rales, wheezing - Cardiovascular Rhythm: regular Heart Sounds: Present: S1 & S2 - Extremities Extremities: no ischemia, No edema - Abdominal General gastrointestinal: soft, non-tender, non-distended, normal bowel sounds - Integumentary Integumentary: Present: clear, warm - Psychiatric Psychiatric: appropriate mood/affect, cooperative - Neurologic Neurologic: CNII-XII intact, moves all extremities Results - Labs CBC & Chem 7: 07/19/19 04:27 07/19/19 04:27 Labs: Laboratory Last Values WBC 7.4 K/mm3 (4.5-11.0) 07/19/19 04:27 RBC 5.47 M/mm3 (3.65-5.03) H 07/19/19 04:27 Hgb 15.0 gm/dl (11.8-15.2) 07/19/19 04:27 Hct 46.9 % (35.5-45.6) H 07/19/19 04:27 MCV 86 fl (84-94) 07/19/19 04:27 MCH 27 pg (28-32) L 07/19/19 04:27 MCHC 32 % (32-34) 07/19/19 04:27 RDW 15.3 % (13.2-15.2) H 07/19/19 04:27 Plt Count 202 K/mm3 (140-440) 07/19/19 04:27 Lymph % (Auto) 29.0 % (13.4-35.0) 07/19/19 04:27 [place] % (Auto) 5.8 % (0.0-7.3) 07/19/19 04:27 Eos % (Auto) 0.5 % (0.0-4.3) 07/19/19 04:27 Baso % (Auto) 0.4 % (0.0-1.8) 07/19/19 04:27 Lymph # 2.2 K/mm3 (1.2-5.4) 07/19/19 04:27 [place] # 0.4 K/mm3 (0.0-0.8) 07/19/19 04:27 Eos # 0.0 K/mm3 (0.0-0.4) 07/19/19 04:27 Baso # 0.0 K/mm3 (0.0-0.1) 07/19/19 04:27 Seg Neutrophils % 64.3 % (40.0-70.0) 07/19/19 04:27 Seg Neutrophils # 4.8 K/mm3 (1.8-7.7) 07/19/19 04:27 PT 12.8 Sec. (12.2-14.9) 07/19/19 04:27 INR 0.97 (0.87-1.13) 07/19/19 04:27 APTT 29.9 Sec. (24.2-36.6) 07/19/19 04:27 POC ABG pH 7.417 (7.35-7.45) 07/21/19 14:50 POC ABG pCO2 51.5 (35-45) H 07/21/19 14:50 POC ABG pO2 76 (80-105) L 07/21/19 14:50 POC ABG HCO3 33.2 (22-26 mml/L) 07/21/19 14:50 POC ABG Total CO2 35 (23-27mmol/L) 07/21/19 14:50 POC ABG O2 Sat 95 07/21/19 14:50 POC ABG Base Excess 9 ((-2) - (+3)mmol/L) 07/21/19 14:50 FiO2 21 % 07/21/19 14:50 Sodium 143 mmol/L (137-145) 07/19/19 04:27 Potassium 4.0 mmol/L (3.6-5.0) 07/19/19 04:27 Chloride 103.3 mmol/L (98-107) 07/19/19 04:27 Carbon Dioxide 28 mmol/L (22-30) 07/19/19 04:27 Anion Gap 16 mmol/L 07/19/19 04:27 BUN 17 mg/dL (9-20) 07/19/19 04:27 Creatinine 1.1 mg/dL (0.8-1.5) 07/19/19 04:27 Estimated GFR > 60 ml/min 07/19/19 04:27 BUN/Creatinine Ratio 15 % 07/19/19 04:27 Glucose 113 mg/dL (75-100) H 07/19/19 04:27 POC Glucose 73 (70-105) 07/20/19 20:55 Calcium 9.0 mg/dL (8.4-10.2) 07/19/19 04:27 Total Bilirubin < 0.20 mg/dL (0.1-1.2) 07/18/19 18:35 Direct Bilirubin < 0.2 mg/dL (0-0.2) 07/18/19 18:35 Indirect Bilirubin 0.0 mg/dL 07/18/19 18:35 AST 30 units/L (5-40) 07/18/19 18:35 ALT 38 units/L (7-56) 07/18/19 18:35 Alkaline Phosphatase 102 units/L (35-129) 07/18/19 18:35 Troponin T < 0.010 ng/mL (0.00-0.029) 07/18/19 18:35 NT-Pro-B Natriuret Pep 46.43 pg/mL (0-450) 07/18/19 18:35 Total Protein 7.9 g/dL (6.3-8.2) 07/18/19 18:35 Albumin 4.1 g/dL (3.9-5) 07/18/19 18:35 Albumin/Globulin Ratio 1.1 % 07/18/19 18:35 Active Medications - Current Medications Current Medications: Generic Name Dose Route Start Last Admin Trade Name Freq PRN Reason Stop Dose Admin Acetaminophen 650 mg 07/18/19 22:21 Tylenol PO Q4H PRN Pain MILD(1-3)/Fever >100.5/NICOLE Albuterol 2.5 mg 07/19/19 19:36 Proventil IH Q6HRT PRN Shortness Of Breath Amiodarone HCl 200 mg 07/19/19 22:00 07/22/19 09:09 Cordarone PO 200 mg BID MEGAN Administration Apixaban 5 mg 07/19/19 22:00 07/22/19 09:09 Eliquis PO 5 mg Q12HR MEGAN Administration Protocol Diltiazem HCl 90 mg 07/19/19 22:00 07/22/19 05:29 Cardizem PO 90 mg Q8HR MEGAN Administration Famotidine 20 mg 07/22/19 10:00 07/22/19 09:09 Pepcid PO 20 mg QDAY MEGAN Administration Furosemide 40 mg 07/19/19 06:00 07/22/19 05:29 Lasix IV 40 mg BID@0600,1800 MEGAN Administration Hydromorphone HCl 1 mg 07/20/19 13:59 07/22/19 11:28 Dilaudid IM 1 mg Q6H PRN Administration Pain , Severe (7-10) Magnesium Hydroxide 30 ml 07/18/19 22:21 Milk Of Magnesia PO Q4H PRN Constipation Morphine Sulfate 2 mg 07/18/19 22:21 Morphine IV Q5MIN PRN Chest Pain unrelieved by NTG Nitroglycerin 0.4 mg 07/18/19 22:21 Nitrostat SL .Q5MIN PRN Chest Pain Ondansetron HCl 4 mg 07/18/19 22:21 Zofran IV Q8H PRN Nausea And Vomiting Oxycodone/Acetaminophen 1 tab 07/19/19 19:28 Percocet 5/325 PO Q8H PRN Pain, Moderate (4-6) Sodium Chloride 10 ml 07/19/19 10:00 07/22/19 09:12 Sodium Chloride Flush Syringe 10 Ml IV 10 ml BID MEGAN Administration Sodium Chloride 10 ml 07/18/19 22:21 Sodium Chloride Flush Syringe 10 Ml IV PRN PRN LINE FLUSH Trazodone HCl 50 mg 07/19/19 22:00 07/21/19 21:55 Desyrel PO 50 mg QHS MEGNA Administration Nutrition/Malnutrition Assess - Dietary Evaluation Nutrition/Malnutrition Findings: Nutrition Notes Start: 07/19/19 11:18 Freq: Status: Active Protocol: Document 07/19/19 11:18 CT (Rec: 07/19/19 11:25 CT [id number]) Co-Sign 07/19/19 11:18 LP Nutrition Notes Need for Assessment generated from: MD Order,car supervisor,MST, Education Initial or Follow up Assessment Current Diagnosis COPD,Hypertension,Heart Failure Other Pertinent Diagnosis SOB, obstructive sleep apnea, obesity Current Diet Cardiac/consistent CHO Labs/Tests Glu 113 Pertinent Medications Lasix Height 5 ft 5 in Weight 160.7 kg [place] Body Weight (kg) 61.81 BMI 58.9 Intake Prior to Admission Good Weight Status Morbidly Obese Subjective/Other Information Consult for diet education and MST score. 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 Pt stated that he was eating SILK SPOTTER and is eating now with a good appetite. Pt ate 100% of breakfast. Pt refused diet education and accepted the handout. Pt stated he had previous education on a heart healthy CHO counting diet. Burn Absent Trauma Absent GI Symptoms None Current % PO Good (75-100%) Minimum of two criteria No physical signs of malnutrition #1 Nutrition Diagnosis Food and nutrition-related knowledge deficit Etiology limited previous knowledge on cardiac/consistent CHO diet As Evidenced by Signs and Symptoms Pt refusal of education but acceptance of handout Is patient on ventilator? No Is Patient Ambulatory and/or Out of Bed Yes REE-([place]. Jeor-ambulatory/OOB) [ 5164.044 NUTR.[id number]] Kcal/Kg value to use for calculation 12 Approximate Energy Requirements Using 1928 kcal/Kg Calculation Used for Recommendations Kcal/kg Additional Notes Protein needs: 88-111 g/kg/day (0.8-1 g/kg/day AdBW 111 kg) Fluid needs: 1 ml/kcal/day Nutrition Intervention Change Diet Order: Continue current Teaching Recipient Patient Learning Readiness Poor Teaching Methods Demonstration,Handout Response to Teaching Reinforcement needed,Refuses to learn Education Handouts Provided Heart Healthy CHO counting Barriers to Learning Motivation RD phone number provided Yes Patient aware of follow up options Yes Anticipated Discharge Needs: Cardiac/consistent CHO Revisit per MD consult or patient Sign Off request:
[2019-07-22] MEDS ORDERED: oxyCODONE /ACETAMINOPHEN 5-325MG TAB PO PRN (21:42)
[2019-07-22] MEDS: traZODone 50 MG TAB PO SCH (22:01)
[2019-07-23] MEDS: FUROSEMIDE 40 MG/4 ML INJ IV SCH (06:44)
--- NOTE | 2019-07-23 08:39 | Discharge Summary ---
Providers - Providers Date of Admission: 07/18/19 21:23 Date of discharge: 07/23/19 Attending physician: JAELYN HAAS 07/18/19 22:21 Consult to Physician [CONS] Routine Comment: Consulting Provider: RAUL MEDINA Physician Instructions: Reason For Exam: chf exacerbation 07/18/19 22:26 Consult to Dietitian/Nutrition [CONS] Routine Physician Instructions: Reason For Exam: Reason for Consult: Diet education 07/20/19 08:00 Consult to Physician [CONS] Routine Comment: Consulting Provider: ENA RIZZO Physician Instructions: Reason For Exam: DOM/obesity hypoventilation/PHT Primary care physician: ASSOCIATE PROFESSOR OF COMMUNICATION Hospitalization Reason for admission: Chest pain and shortness of breath. Condition: Stable Pertinent studies: CXR ECHO Hospital course: 49-year-old -[place] male who presents to the emergency room today complaining of shortness of breath or cough. Cough has not been productive. He has also had some chest pain which has resolved. Shortness of breath is said to be worse on exertion. He has not been able to lie down flat because of shortness of breath. He denies any fever no chills, no nausea vomiting.Admitted,evaluated by cardiology,and pulmonary,medications optimised. Symptoms improved.Cleared by Card and pulm for DC and f/u per schedule. Stable at discharge Discharge Diagnosis: --Acute on chronic diastolic congestive heart failure Current Visit: Yes Status: Acute heart failure medications Low-sodium diet fluid restriction Echo EF 50%, pulmonary hypertension f/u cardiology per schedule --Acute on chronic respiratory failure; Multifactorial , secondary to obesity hypoventilation syndrome, obstructive sleep apnea, pulmonary hypertension f/u pulmonary upon DC --Obesity hypoventilation/obstructive sleep apnea: CPAP nebulizers supportive , f/u pulmonary post DC --Severe pulmonary hypertension: continue current management Mild improvement -- Hypertension Current Visit: No Status: Acute Blood pressure stable. Continue current antihypertensives -- Morbid obesity with BMI 59, adult Current Visit: No Status: Acute advised diet modification,weight reduction when stable Patient needs outpatient evaluation for bariatric weight reduction program When medically stable -- DVT prophylaxis Current Visit: Yes Status: Acute Patient placed on subcutaneous heparin. --Full code status Current Visit: Yes Status: Acute --noncompliance with CPAP strongly advised to comply with medications diet exercise follow-up visits and CPAP Stable at discharge Disposition: DC-01 TO HOME OR SELFCARE Time spent for discharge: 32 min Core Measure Documentation - Palliative Care Palliative Care/ Comfort Measures: Not Applicable - Core Measures Any of the following diagnoses?: none Exam - Constitutional Vitals: Temp Pulse Resp BP Pulse Ox 98.5 F 80 20 153/95 89 07/23/19 08:15 07/23/19 08:15 07/23/19 08:15 07/23/19 08:15 07/23/19 08:15 General appearance: Present: no acute distress, well-nourished, obese - EENT Eyes: Present: PERRL, EOM intact - Neck Neck: Present: supple, normal ROM - Respiratory Respiratory effort: normal Respiratory: bilateral: diminished, negative: rales, rhonchi, wheezing - Cardiovascular Rhythm: regular Heart Sounds: Present: S1 & S2 - Extremities Extremities: no ischemia, No edema - Abdominal General gastrointestinal: Present: soft, non-tender, non-distended, normal bowel sounds - Integumentary Integumentary: Present: clear, warm - Musculoskeletal Musculoskeletal: strength equal bilaterally - Psychiatric Psychiatric: appropriate mood/affect, cooperative - Neurologic Neurologic: CNII-XII intact, moves all extremities Plan Activity: no restrictions Special Instructions: smoking cessation Additional Instructions: Advised to see pain management per schedule. Smoking cessation. Advised to comply with medications, exercise, follow-up visit, oxygen CPAP Follow up with: PRIMARY CARE, [Primary Care Provider] - 3-5 Days KEITH MENDEZ MD [Staff Physician] - 7 Days KEI NOLEN MD [Staff Physician] - 7 Days Forms: Discharge Signature Page Prescriptions: dilTIAZem [Cardizem] 90 mg PO Q8HR #90 tablet Amiodarone [Cordarone 200 MG TAB] 200 mg PO BID #60 tablet Famotidine/Ca Carb/Mag Hydrox [Pepcid Complete Tablet Chew] 1 each PO BID PRN #60 tab.chew PRN Reason: Indigestion
--- NOTE | 2019-07-23 10:13 | Progress Note ---
Assessment and Plan 1. Non-rheumatic aortic valve stenosis mild to moderate 2. Severe pulmonary hypertension 3. Obstructive sleep apnea 4. Morbid obesity 5. Paroxysmal atrial fibrillation 6. Essential hypertension Plan. Cardiac-ho stable continue present medication to follow-up in the office post discharge. Subjective Date of service: 07/30/19 Interval history: No cardiac symptoms Objective Vital Signs Temp Pulse Resp BP Pulse Ox 07/23/19 10:08 99 07/23/19 08:15 98.5 F 80 20 153/95 89 07/23/19 06:44 72 137/77 07/23/19 04:15 98.0 F 72 18 137/77 92 07/22/19 22:01 90 146/63 07/22/19 22:00 97 07/22/19 19:18 97.8 F 90 18 146/63 88 07/22/19 14:54 98.5 F 83 18 126/79 97 - Physical Examination General: No Apparent Distress HEENT: Positive: PERRL Neck: Positive: trachea midline Cardiac: Positive: Regular Rate, S1/S2, Systolic Murmur, PMI, Dilated, Laterally Displaced Lungs: Positive: clear to auscultation, No Wheeze, Rales, Rhonchi Neuro: Positive: Grossly Intact Abdomen: Positive: Unremarkable, Soft, Active Bowel Sounds Extremities: Absent: edema
[2019-07-23] MEDS: AMIODARONE 200 MG TAB PO SCH (10:50)
[2019-07-23] MEDS: APIXABAN 5 MG TAB PO SCH (10:50)
[2019-07-23] MEDS: FAMOTIDINE 20 MG TAB PO SCH (10:50)
--- NOTE | 2019-07-23 14:45 | Progress Note ---
Subjective Date of service: 07/23/19 Interval history: Patient is seen today for: Seen and examined at bedside; 24hour events reviewed; nursing and respiratory care staff consulted; no adverse overnight events reported to me; Objective Vital Signs - 12hr 07/23/19 07/23/19 07/23/19 04:15 06:44 08:15 Temperature 98.0 F 98.5 F Pulse Rate 72 72 80 Respiratory 18 20 Rate Blood Pressure 137/77 137/77 153/95 O2 Sat by Pulse 92 89 Oximetry 07/23/19 10:08 Temperature Pulse Rate Respiratory Rate Blood Pressure O2 Sat by Pulse 99 Oximetry CBC and BMP: 07/19/19 04:27 07/19/19 04:27 ABG, PT/INR, D-dimer: ABG POC ABG pH 7.417 (7.35-7.45) 07/21/19 14:50 POC ABG pCO2 51.5 (35-45) H 07/21/19 14:50 POC ABG pO2 76 (80-105) L 07/21/19 14:50 POC ABG HCO3 33.2 (22-26 mml/L) 07/21/19 14:50 POC ABG Total CO2 35 (23-27mmol/L) 07/21/19 14:50 POC ABG O2 Sat 95 07/21/19 14:50 PT/INR, D-dimer PT 12.8 Sec. (12.2-14.9) 07/19/19 04:27 INR 0.97 (0.87-1.13) 07/19/19 04:27 Abnormal lab findings: Abnormal Labs 07/18/19 07/19/19 07/19/19 18:35 04:27 04:27 RBC 5.44 H 5.47 H Hct 46.1 H 46.9 H MCH 27 L RDW 15.3 H POC ABG pCO2 POC ABG pO2 Glucose 113 H 07/21/19 14:50 RBC Hct MCH RDW POC ABG pCO2 51.5 H POC ABG pO2 76 L Glucose
[2019-07-23 19:50] VITALS: BP 151/91
== END 2019-07-23 20:03 | disposition home or self-care (01) | DRG 189 ==
LOC: ED 16:51 → 4A 21:23
PROVIDERS: ADMIT Internal Medicine Geriatric Medicine; ATTEND Internal Medicine
PROC: 5A09357 Assistance with Respiratory Ventilation, Less than 24 Consecutive Hours, Continuous Positive Airway Pressure (ICD-10-PCS; principal; 2019-07-19)
PROC: 5A09357 Assistance with Respiratory Ventilation, Less than 24 Consecutive Hours, Continuous Positive Airway Pressure (ICD-10-PCS; 2019-07-20)
PROC: 5A09357 Assistance with Respiratory Ventilation, Less than 24 Consecutive Hours, Continuous Positive Airway Pressure (ICD-10-PCS; 2019-07-21)
PROC: 4A033R1 Measurement of Arterial Saturation, Peripheral, Percutaneous Approach (ICD-10-PCS; 2019-07-21)
PROC: 5A09357 Assistance with Respiratory Ventilation, Less than 24 Consecutive Hours, Continuous Positive Airway Pressure (ICD-10-PCS; 2019-07-22)
DX: J96.21 Acute and chronic respiratory failure with hypoxia (principal); I11.0 Hypertensive heart disease with heart failure; J44.1 Chronic obstructive pulmonary disease with (acute) exacerbation; G43.909 Migraine, unspecified, not intractable, without status migrainosus; G89.29 Other chronic pain; F17.200 Nicotine dependence, unspecified, uncomplicated; I48.0 Paroxysmal atrial fibrillation; I50.33 Acute on chronic diastolic (congestive) heart failure; E66.2 Morbid (severe) obesity with alveolar hypoventilation; I05.0 Rheumatic mitral stenosis; I27.20 Pulmonary hypertension, unspecified; I16.0 Hypertensive urgency; Z68.43 Body mass index [BMI] 50.0-59.9, adult; Z82.49 Family history of ischemic heart disease and other diseases of the circulatory system; Z83.3 Family history of diabetes mellitus; Z88.6 Allergy status to analgesic agent; Z88.8 Allergy status to other drugs, medicaments and biological substances; Z90.89 Acquired absence of other organs; Z82.3 Family history of stroke; Z99.81 Dependence on supplemental oxygen; Z71.3 Dietary counseling and surveillance; Z91.19 Patient's noncompliance with other medical treatment and regimen
CPT/HCPCS: 36415; 36600; 71046; 80048; 80076; 82803; 82962; 83880; 84484; 85025; 85610; 85730; 87116; 90686; 93005; 93010; 93306; 94640; 94644; 94660; 94760; 96374; 96375; G0378; J1170; J1644; J1940; J2270; J2405

== ENCOUNTER 2019-12-01 12:32 | Emergency (ER) | payer MEDICAID, OTHER ==
[2019-12-01] MEDS ORDERED: SODIUM CHLORIDE 0.9% 500 ML 500 ML IV ONE (13:11)
[2019-12-01] MEDS ORDERED: MORPHINE 4 MG/1 ML INJ IV ONE ×2 (13:25→15:51)
[2019-12-01] MEDS ORDERED: cefTRIAXone/NS 2 GM/100 ML 2 GM/100 ML BAG IV ONE (13:32)
--- NOTE | 2019-12-01 13:48 | XRay Report ---
CHEST 1 VIEW 1:16 PM INDICATION / CLINICAL INFORMATION: Hypoxia. COMPARISON: 09/05/19. FINDINGS: SUPPORT DEVICES: None. HEART / MEDIASTINUM: Mild cardiomegaly is stable. Pulmonary vasculature is normal for technique. LUNGS / PLEURA: No significant pulmonary or pleural abnormality. No pneumothorax. ADDITIONAL FINDINGS: No significant additional findings. IMPRESSION: No acute abnormality or significant change. Signer Name: Zeeshan De Jesus MD Signed: 12/01/2019 1:44 PM Workstation Name: [id number]
[2019-12-01] MEDS ORDERED: cefTRIAXone/NS 2 GM/100 ML 2 GM/100 ML BAG IV SCH (14:00)
[2019-12-01] MEDS ORDERED: AZITHROMYCIN 500 MG in SODIUM CHLORIDE 0.9% 250ML 250 ML IV SCH (15:00)
[2019-12-01 15:18] LABS: Basophils # (Auto) 0.1 K/mm3 (0.0-0.1); Basophils % (Auto) 1.1 % (0.0-1.8); Eosinophils # (Auto) 0.1 K/mm3 (0.0-0.4); Eosinophils % (Auto) 0.8 % (0.0-4.3); Hemoglobin 15.4 gm/dl (11.8-15.2); Lymphocytes # (Auto) 1.6 K/mm3 (1.2-5.4); Lymphocytes % (Auto) 25.6 % (13.4-35.0); Mean Corpuscular HGB Conc 32 % (32-34); Mean Corpuscular Volume 88 fl (84-94); Monocytes # (Auto) 0.4 K/mm3 (0.0-0.8); Monocytes % (Auto) 6.3 % (0.0-7.3); Platelet Count 203 K/mm3 (140-440); Red Blood Count 5.49 M/mm3 (3.65-5.03); Red Cell Distribution Width 16.4 % (13.2-15.2)
[2019-12-01 15:36] LABS: Alanine Aminotransferase 70 units/L (7-56); Albumin 4.3 g/dL (3.9-5); BUN/Creatinine Ratio 17; Blood Urea Nitrogen 15 mg/dL (9-20); Calcium 9.7 mg/dL (8.4-10.2); Hemolysis Index 30
[2019-12-01 15:37] LABS: C-Reactive Protein 0.8 mg/dL (0.00-1.30)
--- NOTE | 2019-12-01 16:57 | Emergency Department Report ---
ED General Adult HPI - General Chief complaint: Dyspnea/Respdistress Stated complaint: CHEST PAIN/DIFFICULTY BREATHING Time Seen by Provider: 12/01/19 13:01 Source: patient Mode of arrival: Ambulatory Limitations: No Limitations - History of Present Illness Initial comments: Patient is a 49-year-old F [place] male with a past medical history of COPD di abetes and chronic pain who is presenting with shortness of breath. Patient has had cough and chills for approximately 2 weeks. Patient states he has been in contact with someone with coronavirus. States that his last contact with this person was approximately 1 to 1-1/2 months ago. Patient states he has CPAP but states his machine was taken away. Patient is having difficulty sleeping. Patient has a history of wearing home oxygen but is been noncompliant lately. Patient's cough is productive of clear sputum . He denies nausea vomiting or diarrhea. Patient does state that prior to arri manuelito he may have had a syncopal episode as he feels as though he may have passed out in his bathroom. Patient admits to not wearing his oxygen today. Severity scale (0 -10): 10 - Related Data Home Medications Medication Instructions Recorded Confirmed Last Taken Codeine Phosphate/Guaifenesin 120 ml PO Q12HR 09/06/19 09/06/19 09/04/19 [Guaifenesin-Codeine Syrup] Gabapentin [Neurontin] 600 mg PO TID 09/06/19 09/06/19 Unknown Losartan [Cozaar] 100 mg PO QDAY 09/06/19 09/06/19 Unknown Tramadol HCl [traMADol ER 100 MG] 200 mg PO BID 09/06/19 09/06/19 Unknown amLODIPine 5 mg PO DAILY 09/06/19 09/06/19 Unknown hydroCHLOROthiazide 25 mg PO DAILY 09/06/19 09/06/19 Unknown [Hydrochlorothiazide] oxyCODONE /ACETAMINOPHEN [Percocet 7.5 tab PO Q8H PRN 09/06/19 09/06/19 Unknown 5/325 mg] tiZANidine [Zanaflex 4mg TAB] 4 mg PO QDAY 09/06/19 09/06/19 09/04/19 traZODone [Desyrel] 50 mg PO QHS 09/06/19 09/06/19 09/04/19 Previous Rx's Medication Instructions Recorded Last Taken Type Albuterol INH(or & Nicu Only) 2 puff IH QID PRN #1 inhalation 12/28/18 Unknown Rx [ProAir HFA Inhaler] Apixaban [Eliquis] 5 mg PO Q12HR #60 tablet 12/28/18 Unknown Rx Amiodarone [Cordarone 200 MG TAB] 200 mg PO BID #60 tablet 07/23/19 Unknown Rx Furosemide [Lasix TAB] 40 mg PO QDAY #30 tablet 09/09/19 Unknown Rx Potassium Chloride [K-Dur] 10 meq PO QDAY #30 tablet 09/09/19 Unknown Rx Prednisone [predniSONE 10 mg 10 mg PO .TAPER #1 tab.ds.pk 09/09/19 Unknown Rx (6-Day Pack, 21 Tabs)] verapamiL [Calan] 80 mg PO Q8HR #90 tablet 09/09/19 Unknown Rx Benzonatate [Tessalon Perles] 100 mg PO Q8HR #10 capsule 12/01/19 Unknown Rx DOXYCYCLINE Hyclate [Vibramycin 100 mg PO Q12HR #14 capsule 12/01/19 Unknown Rx CAP] Fluticasone [Flonase] 1 spray NS QDAY #1 bottle 12/01/19 Unknown Rx HYDROcodone/APAP 5-325 [[place] 1 each PO Q6HR PRN #14 tablet 12/01/19 Unknown Rx 5/325] predniSONE [Deltasone] 20 mg PO QDAY #5 tab 12/01/19 Unknown Rx Allergies Allergy/AdvReac Type Severity Reaction Status Date / Time aspirin Allergy Hives Verified 12/01/19 12:33 ibuprofen [From Motrin] Allergy Hives Verified 12/01/19 12:33 prochlorperazine Allergy Hives Verified 12/01/19 12:33 [From Compazine] ED Review of Systems ROS: Stated complaint: CHEST PAIN/DIFFICULTY BREATHING Other details as noted in HPI Comment: All other systems reviewed and negative ED Past Medical Hx - Past Medical History Hx Hypertension: Yes Hx Congestive Heart Failure: Yes Hx Diabetes: Yes Hx Deep Vein Thrombosis: No Hx Headaches / Migraines: Yes Hx Asthma: No Hx COPD: Yes Hx HIV: No Additional medical history: Sleep Apnea, Morbid Obesity, Chronic Back Pain - Surgical History Hx Pacemaker: No Hx Internal Defibrillator: No Additional Surgical History: Sleep Apnea - Social History Smoking Status: Never Smoker Substance Use Type: None - Medications Home Medications: Home Medications Medication Instructions Recorded Confirmed Last Taken Type Albuterol INH(or & Nicu Only) 2 puff IH QID PRN #1 inhalation 12/28/18 09/06/19 Unknown Rx [ProAir HFA Inhaler] Apixaban [Eliquis] 5 mg PO Q12HR #60 tablet 12/28/18 09/06/19 Unknown Rx Amiodarone [Cordarone 200 MG TAB] 200 mg PO BID #60 tablet 07/23/19 09/06/19 Unknown Rx Codeine Phosphate/Guaifenesin 120 ml PO Q12HR 09/06/19 09/06/19 09/04/19 History [Guaifenesin-Codeine Syrup] Gabapentin [Neurontin] 600 mg PO TID 09/06/19 09/06/19 Unknown History Losartan [Cozaar] 100 mg PO QDAY 09/06/19 09/06/19 Unknown History Tramadol HCl [traMADol ER 100 MG] 200 mg PO BID 09/06/19 09/06/19 Unknown History amLODIPine 5 mg PO DAILY 09/06/19 09/06/19 Unknown History hydroCHLOROthiazide 25 mg PO DAILY 09/06/19 09/06/19 Unknown History [Hydrochlorothiazide] oxyCODONE /ACETAMINOPHEN [Percocet 7.5 tab PO Q8H PRN 09/06/19 09/06/19 Unknown History 5/325 mg] tiZANidine [Zanaflex 4mg TAB] 4 mg PO QDAY 09/06/19 09/06/19 09/04/19 History traZODone [Desyrel] 50 mg PO QHS 09/06/19 09/06/19 09/04/19 History Furosemide [Lasix TAB] 40 mg PO QDAY #30 tablet 09/09/19 Unknown Rx Potassium Chloride [K-Dur] 10 meq PO QDAY #30 tablet 09/09/19 Unknown Rx Prednisone [predniSONE 10 mg 10 mg PO .TAPER #1 tab.ds.pk 09/09/19 Unknown Rx (6-Day Pack, 21 Tabs)] verapamiL [Calan] 80 mg PO Q8HR #90 tablet 09/09/19 Unknown Rx Benzonatate [Tessalon Perles] 100 mg PO Q8HR #10 capsule 12/01/19 Unknown Rx DOXYCYCLINE Hyclate [Vibramycin 100 mg PO Q12HR #14 capsule 12/01/19 Unknown Rx CAP] Fluticasone [Flonase] 1 spray NS QDAY #1 bottle 12/01/19 Unknown Rx HYDROcodone/APAP 5-325 [[place] 1 each PO Q6HR PRN #14 tablet 12/01/19 Unknown Rx 5/325] predniSONE [Deltasone] 20 mg PO QDAY #5 tab 12/01/19 Unknown Rx ED Physical Exam - General Limitations: No Limitations General appearance: alert, in no apparent distress - Head Head exam: Present: atraumatic, normocephalic - Eye Eye exam: Present: normal appearance, PERRL, EOMI - ENT ENT exam: Present: mucous membranes moist - Neck Neck exam: Present: normal inspection - Respiratory Respiratory exam: Present: normal lung sounds bilaterally. Absent: respiratory distress, wheezes, rales, rhonchi - Cardiovascular Cardiovascular Exam: Present: regular rate, normal rhythm, normal heart sounds. Absent: systolic murmur, diastolic murmur, rubs, gallop - GI/Abdominal GI/Abdominal exam: Present: soft, normal bowel sounds. Absent: distended, tenderness, guarding, rebound - Rectal Rectal exam: Present: deferred - Extremities Exam Extremities exam: Present: normal inspection - Back Exam Back exam: Present: normal inspection - Neurological Exam Neurological exam: Present: alert, oriented X3 - Psychiatric Psychiatric exam: Present: normal affect, normal mood - Skin Skin exam: Present: warm, dry, intact, normal color. Absent: rash ED Course Vital Signs 12/01/19 12/01/19 12/01/19 12:34 14:05 15:30 Temperature 98.7 F Pulse Rate 107 H 96 H 97 H Respiratory 24 20 22 Rate Blood Pressure 202/103 Blood Pressure 153/123 117/85 [Left] O2 Sat by Pulse 90 97 99 Oximetry ED Medical Decision Making - Lab Data Result diagrams: 12/01/19 14:58 12/01/19 14:58 Lab Results 12/01/19 12/01/19 12/01/19 Range/Units 14:58 14:58 14:58 WBC 6.1 (4.5-11.0) K/mm3 RBC 5.49 H (3.65-5.03) M/mm3 Hgb 15.4 H (11.8-15.2) gm/dl Hct 48.0 H (35.5-45.6) % MCV 88 (84-94) fl MCH 28 (28-32) pg MCHC 32 (32-34) % RDW 16.4 H (13.2-15.2) % Plt Count 203 (140-440) K/mm3 Lymph % (Auto) 25.6 (13.4-35.0) % Tate % (Auto) 6.3 (0.0-7.3) % Eos % (Auto) 0.8 (0.0-4.3) % Baso % (Auto) 1.1 (0.0-1.8) % Lymph # 1.6 (1.2-5.4) K/mm3 Tate # 0.4 (0.0-0.8) K/mm3 Eos # 0.1 (0.0-0.4) K/mm3 Baso # 0.1 (0.0-0.1) K/mm3 Seg Neutrophils % 66.2 (40.0-70.0) % Seg Neutrophils # 4.0 (1.8-7.7) K/mm3 D-Dimer (0-234) ng/mlDDU Sodium 137 (137-145) mmol/L Potassium 4.7 (3.6-5.0) mmol/L Chloride 102.3 (98-107) mmol/L Carbon Dioxide 20 L (22-30) mmol/L Anion Gap 19 mmol/L BUN 15 (9-20) mg/dL Creatinine 0.9 (0.8-1.5) mg/dL Estimated GFR > 60 ml/min BUN/Creatinine Ratio 17 % Glucose 119 H (75-100) mg/dL Lactic Acid 0.80 (0.7-2.0) mmol/L Calcium 9.7 (8.4-10.2) mg/dL Ferritin (13.0-400.0) ng/mL Total Bilirubin 0.30 (0.1-1.2) mg/dL AST 44 H (5-40) units/L ALT 70 H (7-56) units/L Alkaline Phosphatase 92 (35-129) units/L Lactate Dehydrogenase (91-180) units/L Troponin T < 0.010 (0.00-0.029) ng/mL C-Reactive Protein (0.00-1.30) mg/dL Total Protein 8.8 H (6.3-8.2) g/dL Albumin 4.3 (3.9-5) g/dL Albumin/Globulin Ratio 1.0 % 12/01/19 12/01/19 12/01/19 Range/Units 14:58 14:58 14:58 WBC (4.5-11.0) K/mm3 RBC (3.65-5.03) M/mm3 Hgb (11.8-15.2) gm/dl Hct (35.5-45.6) % MCV (84-94) fl MCH (28-32) pg MCHC (32-34) % RDW (13.2-15.2) % Plt Count (140-440) K/mm3 Lymph % (Auto) (13.4-35.0) % Tate % (Auto) (0.0-7.3) % Eos % (Auto) (0.0-4.3) % Baso % (Auto) (0.0-1.8) % Lymph # (1.2-5.4) K/mm3 Tate # (0.0-0.8) K/mm3 Eos # (0.0-0.4) K/mm3 Baso # (0.0-0.1) K/mm3 Seg Neutrophils % (40.0-70.0) % Seg Neutrophils # (1.8-7.7) K/mm3 D-Dimer 161.36 (0-234) ng/mlDDU Sodium (137-145) mmol/L Potassium (3.6-5.0) mmol/L Chloride (98-107) mmol/L Carbon Dioxide (22-30) mmol/L Anion Gap mmol/L BUN (9-20) mg/dL Creatinine (0.8-1.5) mg/dL Estimated GFR ml/min BUN/Creatinine Ratio % Glucose (75-100) mg/dL Lactic Acid (0.7-2.0) mmol/L Calcium (8.4-10.2) mg/dL Ferritin 161.8 (13.0-400.0) ng/mL Total Bilirubin (0.1-1.2) mg/dL AST (5-40) units/L ALT (7-56) units/L Alkaline Phosphatase (35-129) units/L Lactate Dehydrogenase 336 H (91-180) units/L Troponin T (0.00-0.029) ng/mL C-Reactive Protein 0.80 (0.00-1.30) mg/dL Total Protein (6.3-8.2) g/dL Albumin (3.9-5) g/dL Albumin/Globulin Ratio % - Radiology Data Radiology results: report reviewed (CXR) - Medical Decision Making Patient presented with borderline hypoxia however once the patient was placed on 2 to 3 L of oxygen his O2 sat was 100%. Patient is supposed to be wearing oxygen at home. Patient's O2 saturation is at his baseline when on oxygen. Patient main complaint during his visit was back pain as he does have chronic back pain. Chest x-ray was negative for infiltrates his lungs were relatively clear. Laboratory studies were unremarkable. Patient has had exposure to someone with coronavirus however this is been over a month ago. Cannot say with certainty that the patient does not have coronavirus either from that interaction or from interaction with other human beings however the patient is not meeting criteria for admission at this time. Patient will be treated for ac trista bronchitis. Because of his COPD status patient be started on doxycycline will also be given medication for symptomatic relief. Critical care attestation.: If time is entered above; I have spent that time in minutes in the direct care of this critically ill patient, excluding procedure time. ED Disposition Clinical Impression: Supplemental oxygen dependent Hypertension Qualifiers: Hypertension type: unspecified Qualified Code(s): I10 - Essential (primary) hypertension Acute bronchitis Qualifiers: Bronchitis organism: unspecified organism Qualified Code(s): J20.9 - Acute bronchitis, unspecified Disposition: DC- TO HOME OR SELFCARE Is pt being admited?: No Does the pt Need Aspirin: No Condition: Stable Instructions: Hypertension (ED), Acute Bronchitis (ED) Referrals: TARUN SOUSA MD [Primary Care Provider] - 3-5 Days Time of Disposition: 17:02
[2019-12-01 19:39] VITALS: BP 151/90
== END 2019-12-01 18:15 | disposition home or self-care (01) ==
LOC: ED 12:32
DX: J20.9 Acute bronchitis, unspecified (principal); I11.0 Hypertensive heart disease with heart failure; I50.9 Heart failure, unspecified; E11.9 Type 2 diabetes mellitus without complications; J44.9 Chronic obstructive pulmonary disease, unspecified; G43.909 Migraine, unspecified, not intractable, without status migrainosus; E66.01 Morbid (severe) obesity due to excess calories; Z68.43 Body mass index [BMI] 50.0-59.9, adult; Z88.6 Allergy status to analgesic agent; Z79.899 Other long term (current) drug therapy; Z98.890 Other specified postprocedural states; Z99.81 Dependence on supplemental oxygen
CPT/HCPCS: 36415; 71045; 80053; 82140; 82728; 83615; 84145; 84484; 85025; 85379; 86140; 87040; 96365; 96367; 96375; 96376; 99284; J0456; J0696; J2270; J7040; J7050